=== PATIENT | female | born 1925 | race Caucasian/White ===

== ENCOUNTER 2016-07-27 14:56 | Observation (INO) | payer MEDICARE, BC ==
[2016-07-27] VITALS (9 sets, daily range): BP systolic 121–151; BP diastolic 55–75; PULSE 43–59; RESP 18–20; TEMP 97.8–98; O2SAT 96–98
[~2016-07-27] VITALS: Ht 149.9 cm; Wt 60.0 kg
[~2016-07-27 14:56] MED LIST: AMLO5TAB2 PO; ASPI1TAB69 PO; CARV6.252 PO; DORZ2SOL RIGHT EYE; FURO1TAB60 PO; GLIM2TAB PO; HYDR-3533 PO; ISOS20TA PO; JUSTSOL EACH EYE; K-TA10TA PO; LYRI50CA PO; NITR1SUB3 SL; NOVO7030P2 SQ; PANT40TA3 PO; PLAV75TA29 PO; PRED1SUS LEFT EYE; ROPI1TAB72 PO; ZETI10TA5 PO
[2016-07-27] MEDS ORDERED: SODIUM CHLORIDE 0.9% FLUSH 10 ML FLUSH IVF PRN (15:30)
[2016-07-27] MEDS ORDERED: ASPIRIN 81 MG CHEW TAB PO ONE ×2 (15:30→18:15)
[2016-07-27] MEDS ORDERED: NITROGLYCERIN 2% OINT 1 GM PACKET TOP ONE (15:30)
[2016-07-27] MEDS ORDERED: SODIUM CHLORID 0.9% 500 ML INJ 500 ML IV ONE (15:30)
--- NOTE | 2016-07-27 15:37 | PD ---
HPI Chief Complaint: chest pain Time Seen by Provider: 15:10 Travel History International Travel<30 days: No Contact w/Intl Traveler<30days: No History of Present Illness HPI Patient is an 89-year-old female with history of coronary artery disease, coronary artery bypass graft surgery, hypertension, lipidemia, atrial fibrillation, ckd, DM, arthritis who presents to emergency room with complaints of chest pain. Patient reports that she began having chest pain while at rest last night, reports that she felt a "dull ache" to her chest - reports that she felt tightness to her jaw as well as her neck. Patient reports that she did take one sublingual nitroglycerin which completely resolved her symptoms. Patient reports that she had another episode of chest pain today, which that she had a substernal pain to her chest with a tightness to her jaw and neck, reports that she took another sublingual nitroglycerin and had resolution of symptoms. Patient was concerned as she has been having daily symptoms of chest pain with history of coronary artery disease. Patient does see Dr. Morataya on the office, she did see her last month and was told that everything was okay. PFSH Past Medical History Arthritis: Yes Asthma: No Autoimmune Disease: No Blood Disorders: No Anxiety: Yes Depression: No Heart Rhythm Problems: Yes Cancer: Yes (BLADDER) Cardiac Catheterization: Yes Cardiovascular Problems: Yes High Cholesterol: Yes Chemotherapy: No Chest Pain: Yes Congestive Heart Failure: Yes COPD: No Cerebrovascular Accident: No Diabetes: Yes Diminished Hearing: Yes (HEARING AID RIGHT EAR) Endocrine: Yes Gastrointestinal Disorders: Yes (GERD) GERD: Yes Glaucoma: No Genitourinary: Yes (BLADDER CANCER/ HEMATURIA) Headaches: No Hepatitis: No Hiatal Hernia: Yes Hypertension: Yes Immune Disorder: No Implanted Vascular Access Dvce: Yes Kidney Stones: No Musculoskeletal: Yes (ARTHRITIS) Neurologic: Yes (NEUROPATHY FEET) Psychiatric: No Reproductive: No Respiratory: No Immunizations Current: Yes Migraines: No Myocardial Infarction: Yes Radiation Therapy: No Renal Failure: Yes Seizures: No Sickle Cell Disease: No Sleep Apnea: No Thyroid Disease: No Ulcer: No PNEUMOCCOCAL Vaccine (Year): 1 Menopausal: Yes : 2 Para: 2 Past Surgical History Abdominal Surgery: No AICD: No Appendectomy: No Arteriovenous Shunt: No Body Medical Devices: STERNAL WIRES Cardiac Surgery: Yes (CABG X2 SX'S 1981, 1989) Coronary Artery Bypass Graft: Yes (1981 OPEN HEART DOUBLE BYPASS, 1989 OPEN HEART DOUBLE BYPASS) Ear Surgery: Yes Endocrine Surgery: No Eye Surgery: Yes (SCOT CATARACT ; LEFT RETINA SX) Genitourinary Surgery: No Gynecologic Surgery: Yes (HYSTERECTOMY) Hysterectomy: Yes Insulin Pump: No Joint Replacement: No Neurologic Surgery: Yes Oral Surgery: No Pacemaker: No Thoracic Surgery: Yes Social History Alcohol Use: No Tobacco Use: No Substance Use: No Allergies-Medications (Allergen,Severity, Reaction): Coded Allergies: Penicillin (Verified Allergy, Severe, SEVERE ITCHING, 12/03/15) Reported Meds & Prescriptions Reported Meds & Active Scripts Active Requip (Ropinirole) 1 Mg Tab 1 Mg PO HS Plavix (Clopidogrel Bisulfate) 75 Mg Tab 75 Mg PO DAILY Reported Zetia (Ezetimibe) 10 Mg Tab 10 Mg PO HS Pred Forte Opth Drops (Prednisolone Acetate Opth Drops) 1% Susp 1 Drop LEFT EYE BID Pantoprazole (Pantoprazole Sodium) 40 Mg Tab 40 Mg PO DAILY Novolin 70-30 Inj (Insulin Human Isoph/Insulin Regular) 1,000 Unit/10 Ml Vial 16 Units SQ BID Nitroglycerin SL (Nitroglycerin) 0.4 Mg Subl 0.4 Mg SL DIRECTED PRN ONE TABLET UNDER THE TONGUE NEEDED FOR CHEST PAIN, MAY REPEAT EVERY FIVE MINUTES FOR A TOTAL OF 3 DOSES OR CALL 911 IF NO RELIEF Lyrica (Pregabalin) 50 Mg Cap 50 Mg PO BID Isosorbide Mononitrate 20 Mg Tab 20 Mg PO BID Lortab (Hydrocodone-Acetaminophen) 5-325 Mg Tab 1-2 Tab PO Q4-6H PRN Glimepiride 2 Mg Tab 2 Mg PO BID Lasix (Furosemide) 40 Mg Tab 40 Mg PO DAILY Dorzolamide Opth Drops (Dorzolamide HCl) 2% Soln 1 Drop RIGHT EYE BID Carvedilol 6.25 Mg Tab 6.25 Mg PO BID K-Tab (Potassium Chloride) 10 Meq Tab 10 Meq PO BID Aspirin 81 Mg Tabdr 81 Mg PO DAILY Just Tears Eye Drops (Artificial Tear Solution Opth Drops) 1 Chelsey Chelsey 1 Drop EACH EYE DAILY PRN Amlodipine (Amlodipine Besylate) 5 Mg Tab 5 Mg PO DAILY Review of Systems General / Constitutional: No: Fever Eyes: No: Visual changes HENT: No: Headaches Cardiovascular: Positive: Chest Pain or Discomfort Respiratory: No: Shortness of Breath Gastrointestinal: No: Abdominal Pain Genitourinary: No: Dysuria Musculoskeletal: No: Pain Skin: No Rash Neurologic: No: Weakness Psychiatric: No: Depression Endocrine: No: Polydipsia Hematologic/Lymphatic: No: Easy Bruising Physical Exam Narrative GENERAL: nad, nontoxic SKIN: Focused skin assessment warm/dry. HEAD: Atraumatic. Normocephalic. EYES: Pupils equal and round. No scleral icterus. No injection or drainage. ENT: No nasal bleeding or discharge. Mucous membranes pink and moist. NECK: Trachea midline. No JVD. CARDIOVASCULAR: Irregular rate and rhythm. No murmur appreciated. RESPIRATORY: No accessory muscle use. Clear to auscultation. Breath sounds equal bilaterally. GASTROINTESTINAL: Abdomen soft, non-tender, nondistended. Hepatic and splenic margins not palpable. MUSCULOSKELETAL: No obvious deformities. No clubbing. No cyanosis. No edema. NEUROLOGICAL: Awake and alert. No obvious cranial nerve deficits. Motor grossly within normal limits. Normal speech. PSYCHIATRIC: Appropriate mood and affect; insight and judgment normal. Data Data Last Documented VS Vital Signs Date Time Temp Pulse Resp B/P Pulse Ox O2 Delivery O2 Flow Rate FiO2 07/27/16 15:54 97.9 53 18 137/64 96 Room Air Orders Electrocardiogram (07/27/16 15:20) B-Type Natriuretic Peptide (07/27/16 15:20) Ckmb (Isoenzyme) Profile (07/27/16 15:20) Complete Blood Count With Diff (07/27/16 15:20) Comprehensive Metabolic Panel (07/27/16 15:20) Magnesium (Mg) (07/27/16 15:20) Prothrombin Time / Inr (Pt) (07/27/16 15:20) Act Partial Throm Time (Ptt) (07/27/16 15:20) Troponin I (07/27/16 15:20) Lipase (07/27/16 15:20) Chest, Single Ap (07/27/16 15:20) Ecg Monitoring (07/27/16 15:20) Iv Access Insert/Monitor (07/27/16 15:20) Oximetry (07/27/16 15:20) Aspirin Chew (Aspirin Chew) (07/27/16 15:30) Nitroglycerin 2% Oint (Nitroglycerin 2% (07/27/16 15:30) Sodium Chloride 0.9% Flush (Ns Flush) (07/27/16 15:30) Sodium Chlorid 0.9% 500 Ml Inj (Ns 500 M (07/27/16 15:30) Blood Culture (07/27/16 17:08) Admit Order (Ed Use Only) (07/27/16 17:25) Consult Cardiology (07/27/16 ) Labs Laboratory Tests Test 07/27/16 15:20 White Blood Count 6.7 TH/MM3 Red Blood Count 3.48 MIL/MM3 Hemoglobin 10.2 GM/DL Hematocrit 30.4 % Mean Corpuscular Volume 87.3 FL Mean Corpuscular Hemoglobin 29.2 PG Mean Corpuscular Hemoglobin 33.5 % Concent Red Cell Distribution Width 14.1 % Platelet Count 187 TH/MM3 Mean Platelet Volume 10.0 FL Neutrophils (%) (Auto) 72.7 % Lymphocytes (%) (Auto) 18.2 % Monocytes (%) (Auto) 8.7 % Eosinophils (%) (Auto) 0.2 % Basophils (%) (Auto) 0.2 % Neutrophils # (Auto) 4.9 TH/MM3 Lymphocytes # (Auto) 1.2 TH/MM3 Monocytes # (Auto) 0.6 TH/MM3 Eosinophils # (Auto) 0.0 TH/MM3 Basophils # (Auto) 0.0 TH/MM3 CBC Comment DIFF FINAL Differential Comment Prothrombin Time 11.1 SEC Prothromb Time International 1.0 RATIO Ratio Activated Partial 27.1 SEC Thromboplast Time Sodium Level 145 MEQ/L Potassium Level 3.5 MEQ/L Chloride Level 108 MEQ/L Carbon Dioxide Level 27.2 MEQ/L Anion Gap 10 MEQ/L Blood Urea Nitrogen 28 MG/DL Creatinine 1.27 MG/DL Estimat Glomerular Filtration 40 ML/MIN Rate Random Glucose 108 MG/DL Calcium Level 8.4 MG/DL Magnesium Level 2.2 MG/DL Total Bilirubin 0.6 MG/DL Aspartate Amino Transf 15 U/L (AST/SGOT) Alanine Aminotransferase 17 U/L (ALT/SGPT) Alkaline Phosphatase 83 U/L Total Creatine Kinase 68 U/L Troponin I LESS THAN 0.02 NG/ML Total Protein 5.9 GM/DL Albumin 3.1 GM/DL Lipase 56 U/L [facility] Medical Decision Making Medical Screen Exam Complete: Yes Emergency Medical Condition: Yes Interpretation(s) EKG at 1517: afib at 56bpm, qt/qtc: 435/426, no acute st or t wave changes Vital Signs Date Time Temp Pulse Resp B/P Pulse Ox O2 Delivery O2 Flow Rate FiO2 07/27/16 14:59 97.8 56 20 143/64 97 Room Air Differential Diagnosis ACS, arrhythmia, electrolyte abnormality Narrative Course Patient is a 89 year old female who presents to ER with c/o of chest pain. Reports that she has CAD, HTN, DM, hyperlipidemia, A. fib, reports that she sees Dr. Morataya in the office. Patient reports that she has been having multiple episodes of chest pain, a "dull ache" to her chest relieved with SL nitro. Patient reports that she had chest pain prior to arrival to ER, reports that she is chest pain free at this time. Patient was placed on a monitoring manager upon arrival to emergency room. Patient currently chest pain-free. Labs as well as cardiac enzymes ordered. Plan to continue to monitor patient. Will give ASA and apply nitro paste. Laboratory Tests Test 07/27/16 15:20 White Blood Count 6.7 TH/MM3 (4.0-11.0) Red Blood Count 3.48 MIL/MM3 (4.00-5.30) Hemoglobin 10.2 GM/DL (11.6-15.3) Hematocrit 30.4 % (35.0-46.0) Mean Corpuscular Volume 87.3 FL (80.0-100.0) Mean Corpuscular Hemoglobin 29.2 PG (27.0-34.0) Mean Corpuscular Hemoglobin 33.5 % Concent (32.0-36.0) Red Cell Distribution Width 14.1 % (11.6-17.2) Platelet Count 187 TH/MM3 (150-450) Mean Platelet Volume 10.0 FL (7.0-11.0) Neutrophils (%) (Auto) 72.7 % (16.0-70.0) Lymphocytes (%) (Auto) 18.2 % (9.0-44.0) Monocytes (%) (Auto) 8.7 % (0.0-8.0) Eosinophils (%) (Auto) 0.2 % (0.0-4.0) Basophils (%) (Auto) 0.2 % (0.0-2.0) Neutrophils # (Auto) 4.9 TH/MM3 (1.8-7.7) Lymphocytes # (Auto) 1.2 TH/MM3 (1.0-4.8) Monocytes # (Auto) 0.6 TH/MM3 (0-0.9) Eosinophils # (Auto) 0.0 TH/MM3 (0-0.4) Basophils # (Auto) 0.0 TH/MM3 (0-0.2) CBC Comment DIFF FINAL Differential Comment Prothrombin Time 11.1 SEC (9.8-11.6) Prothromb Time International 1.0 RATIO Ratio Activated Partial 27.1 SEC Thromboplast Time (24.3-30.1) Sodium Level 145 MEQ/L (136-145) Potassium Level 3.5 MEQ/L (3.5-5.1) Chloride Level 108 MEQ/L (98-107) Carbon Dioxide Level 27.2 MEQ/L (21.0-32.0) Anion Gap 10 MEQ/L (5-15) Blood Urea Nitrogen 28 MG/DL (7-18) Creatinine 1.27 MG/DL (0.50-1.00) Estimat Glomerular Filtration 40 ML/MIN (>89) Rate Random Glucose 108 MG/DL (74-106) Calcium Level 8.4 MG/DL (8.5-10.1) Magnesium Level 2.2 MG/DL (1.5-2.5) Total Bilirubin 0.6 MG/DL (0.2-1.0) Aspartate Amino Transf 15 U/L (15-37) (AST/SGOT) Alanine Aminotransferase 17 U/L (10-53) (ALT/SGPT) Alkaline Phosphatase 83 U/L (45-117) Total Creatine Kinase 68 U/L (26-192) Troponin I LESS THAN 0.02 NG/ML (0.02-0.05) Total Protein 5.9 GM/DL (6.4-8.2) Albumin 3.1 GM/DL (3.4-5.0) Lipase 56 U/L (73-393) Last Impressions Chest X-Ray 07/27/16 1520 Signed Impressions: Service Date/Time: Wednesday, July 27, 2016 15:32 - CONCLUSION: Non-consolidative patchy infiltrates in the left lower lung. Silvestre Johnston MD X-ray shows patchy infiltrates in the left lower lung, patient is to having productive cough for the past few days. denies any fevers or chills. blood cultures ordered, antibiotics ordered. [facility] Physician Communication Physician Communication case reviewed with dr baez, accepts pt to service, request consult to dr. stovall admit to dr mayo Diagnosis Primary Impression: Chest pain Qualified Code: R07.9 - Chest pain, unspecified type Additional Impression: Pneumonia Qualified Code: J18.9 - Pneumonia of left lung due to infectious organism, unspecified part of lung Admitting Information Admitting Physician Requests: Observation Stacie Sullivan DO Jul 27, 2016 15:37
[2016-07-27 15:46] LABS: AUTOMATED NEUTROPHIL # 4.9 TH/MM3 (1.8-7.7); BASOPHIL % 0.2 % (0.0-2.0); EOSINOPHIL % 0.2 % (0.0-4.0); HEMATOCRIT 30.4 % (35.0-46.0); HEMO FLAGS DIFF FINAL; LYMPH % 18.2 % (9.0-44.0); LYMPHOCYTE # 1.2 TH/MM3 (1.0-4.8); MEAN CELL VOLUME 87.3 FL (80.0-100.0); MEAN CORPUSCULAR HEMOGLOBIN 29.2 PG (27.0-34.0); MEAN CORPUSCULAR HGB CONC 33.5 % (32.0-36.0); MONO % 8.7 % (0.0-8.0); NEUT % 72.7 % (16.0-70.0); PLATELET COUNT 187 TH/MM3 (150-450); RED BLOOD COUNT 3.48 MIL/MM3 (4.00-5.30); RED CELL DISTRIBUTION WIDTH 14.1 % (11.6-17.2); WHITE BLOOD COUNT 6.7 TH/MM3 (4.0-11.0)
[2016-07-27 15:57] LABS: APTT (PATIENT) 27.1 SEC (24.3-30.1); PROTHROMBIN TIME - PATIENT 11.1 SEC (9.8-11.6)
[2016-07-27 16:15] LABS: ANION GAP 10 MEQ/L (5-15); AST (GOT) 15 U/L (15-37); BICARBONATE 27.2 MEQ/L (21.0-32.0); BLOOD UREA NITROGEN 28 MG/DL (7-18); CHLORIDE 108 MEQ/L (98-107); GLOMERULAR FILTRATION RATE 40 ML/MIN (>89); MAGNESIUM 2.2 MG/DL (1.5-2.5); POTASSIUM 3.5 MEQ/L (3.5-5.1); SODIUM (NA) 145 MEQ/L (136-145)
--- NOTE | 2016-07-27 16:16 | RADRPT ---
EXAM DATE/TIME: 07/27/2016 15:32 [facility] COMPARISON: CHEST SINGLE AP, March 27, 2016, 10:21. INDICATIONS : Shortness of breath. MEDICAL HISTORY : Hypercholesterolemia. Myocardial infarction. Congestive heart failure. SURGICAL HISTORY : Hysterectomy. CABG. 1981 1989 heart surgery per pt ENCOUNTER: Initial ACUITY: 2 days PAIN SCORE: 2/10 LOCATION: Bilateral upper chest FINDINGS: A single view of the chest demonstrates the right lung to be clear. There is some patchy areas of in filtrate in the retrocardiac left lower lung.. The heart is enlarged, but stable. Evidence of prior median sternotomy. Stable mild elevation left hemidiaphragm. Osseous structures are intact. CONCLUSION: Non-consolidative patchy infiltrates in the left lower lung. Silvestre Johnston MD on July 27, 2016 at 16:13 Board Certified Radiologist. This report was verified electronically.
[2016-07-27 16:20] LABS: ALKALINE PHOSPHATASE 83 U/L (45-117); ALT (GPT) 17 U/L (10-53); TOTAL BILIRUBIN ADULT 0.6 MG/DL (0.2-1.0)
[2016-07-27 16:24] LABS: CREATINE KINASE 68 U/L (26-192)
[2016-07-27] MEDS ORDERED: ACETAMINOPHEN 500 MG CPLT PO PRN (18:15)
[2016-07-27] MEDS ORDERED: SODIUM CHLORIDE 0.9% FLUSH 10 ML FLUSH IV FLUSH PRN (18:15)
[2016-07-27] MEDS ORDERED: NITROGLYCERIN 0.4 MG SL 25 TABS/BTL SL PRN (18:15)
[2016-07-27] MEDS ORDERED: ONDANSETRON HCL 4 MG/2 ML VIAL IV PRN (18:15)
[2016-07-27] MEDS: NITROGLYCERIN 2% OINT 1 GM PACKET TOP SCH (18:15)
[2016-07-27] MEDS: AZITHROMYCIN INJ 500 MG in SODIUM CHLOR 0.9% 250 ML INJ 250 ML IV SCH (18:43)
[2016-07-27 18:57] LABS: CREATINE KINASE 59 U/L (26-192)
--- NOTE | 2016-07-27 19:27 | MH ---
cc: IVA MARSHALL MD DATE OF ADMISSION: 07/27/2016 DATE OF : 1925 No travel in the last 30 days. CHIEF COMPLAINT Chest pain and cough. HISTORY OF PRESENT ILLNESS This is a pleasant 89-year-old white female who was in her usual state of health up until the past few days. The patient noted a feeling of tiredness and decreased stamina. She also noted some shortness of breath and was coughing up roldan phlegm. She states that she tried to rest for a few days but today she noted midsternal chest pain that she describes as a dull ache. She also noted some radiation into her jaw that she describes as a tight sensation. She took nitroglycerin x1 which resolved her symptoms but then the chest pain came back again. She took nitroglycerin again x1 which resolved the symptoms but decided that she needed to come in and be evaluated since she has a known history of coronary artery disease. She sees Dr. Delaney Morataya of Cardiology. The patient denies any recent fever, denies any headache, no nausea, no vomiting, no diarrhea, no constipation. She has not lost or gained any weight recently and she does note some seasonal allergies at times. The patient also states that she has been on Eliquis but was changed to a different type of blood thinner, Requip, and she notes increased bruising especially on her extremities when she bumps something. The patient is also noted to have a red swollen left eye with mild periorbital edema. She states that she uses prednisone drops twice a day in that eye. PAST MEDICAL HISTORY 1. Arthritis. 2. Anxiety. 3. Bladder cancer. 4. Congestive heart failure. 5. Diabetes. 6. Seasonal allergies. 7. Hyperlipidemia. 8. Previous chest pain. 9. Hard of hearing. 10. Gastroesophageal reflux disease. 11. Hiatal hernia. 12. Hypertension. 13. Osteoarthritis. 14. Diabetic neuropathy. 15. Renal failure. PAST SURGICAL HISTORY 1. Sternal wires. 2. CABG x2 once in 84 and once in . 3. Bilateral cataract surgery. 4. Left retina symptoms. 5. Hysterectomy. ALLERGIES PENICILLIN. MEDICATIONS ACTIVE 1. Requip. 2. Plavix. 3. Zetia. 4. Prednisone ophthalmic drops. 5. Pantoprazole. 6. Novolin 70/30. 7. Nitroglycerin. 8. Lyrica. 9. Isosorbide. 10. Lortab. 11. Glimepiride. 12. Lasix. 13. Dorzolamide ophthalmic drops. 14. Carvedilol. 15. K-Tabs. 16. Aspirin. 17. Tears. 18. Amlodipine. SOCIAL HISTORY The patient is currently and lives with her son. There is no alcohol, tobacco or illicit drug use. REVIEW OF SYSTEMS Noted in the HPI which include her chest pain, some productive roldan sputum, shortness of breath, seasonal allergies, cough. PHYSICAL EXAMINATION VITAL SIGNS: Temperature 97.9, pulse 53-56, respirations 20, blood pressure initially 143/64 in the ER and now 137/64, O2 sat 96 on room air. GENERAL: Elderly white female, looks to be her stated age, resting in the bed, currently chest pain-free. SKIN: Pale, warm and dry. HEAD, EYES, EARS, NOSE AND THROAT: Atraumatic, normocephalic. No scleral icterus. PERRLA. Noted mild redness and periorbital edema in the left eye with some erythema. No nasal discharge. NECK: Supple. Trachea is midline. CARDIOVASCULAR: S1, S2. A soft systolic murmur possible in the left sternal border. She has a trace of edema in her left leg and none in her right leg. RESPIRATORY: Essentially clear anteriorly with no wheezes or rhonchi. She does have decreased breath sounds in the left mid and base. ABDOMEN: Soft, tender, nondistended. MUSCULOSKELETAL: Moves her extremities with purpose. No obvious deformities. NEUROLOGIC: She is hard of hearing but awake, alert and a fair historian. Speech is fairly clear. PSYCHIATRIC: Appropriate mood and affect. DIAGNOSTIC DATA WBC 6.7, RBC 3.48, hemoglobin 10.2, hematocrit 30.4, abnormal neutrophil percentage 72.7 and monocytes are 8.7. Chemistry: Sodium 145, potassium 3.5, chloride 108, carbon dioxide 27.2, anion gap 10, BUN 28, creatinine 1.27, GFR 40, random glucose 108, calcium 8.4, troponin less than 0.02, total protein is 5.9, albumin 3.1, lipase 56. PT/INR is 1. IMAGING STUDIES Chest x-ray with non-consolidative patchy infiltrates in the left lower lung. ASSESSMENT 1. Chest pain. Rule out [place]. Rule out cardiac event. 2. CAD/CAD. Possible pneumonia left lower lobe due to infectious organism. 3. Acute kidney injury with possible mild dehydration. 4. Anemia. 5. History of TIAs and generalized weakness. 6. Diabetes mellitus type 2. Mild hyperglycemia noted. 7. History of paroxysmal atrial fibrillation. 8. Hypertension. 9. Gastroesophageal reflux disease. PLAN 1. Admit initially to observation. 2. Vital signs will be q.4. 3. We will reconcile her medications. 4. We will start her on PPI prophylaxis with Pepcid. 5. Nitroglycerin ointment which she states is helping her chest pain. She also can use p.r.n. nitroglycerin. 6. Aspirin. 7. Cardiac monitoring. 8. Heparin for DVT prophylaxis along with SCDs bilateral. 9. We will go ahead and start her on Rocephin IV and azithromycin. 10. To rule out a pneumonia event we will get a BNP. 11. Consult Cardiology for her expert opinion. 12. Activity will be bedrest with bedside commode. 13. Blood cultures which will be pending. The patient to my knowledge is FULL CODE/FULL AGGRESSIVE CARE and we will monitor. Dictated by: KAILEY Dotson MD MOISES Lewis/MARTHA /6:22 PM /6:34 PM
[2016-07-27] MEDS: cefTRIAXone INJ 2,000 MG in SODIUM CHLORIDE 0.9% INJ 100 ML IV SCH (20:05)
--- NOTE | 2016-07-27 20:31 | HP.UPD ---
H&P Update Note This is a very pleasant 61 year-old female who sees health professor Dr. Morataya. She hasn't had coronary bypass surgery on 2 separate occasions in the 80s and 90s. She was SEEN and examined by the undersigned on 07/27/16 in the emergency department at [facility] in room C 25. She came in with chest discomfort and with productive cough and shortness of breath. She also has a runny nose. No infiltrate was found on x-ray. She was put on antibiotics. She is been admitted on observation. Serial CKs and troponins ordered. Her health professor is consulted. Further recommendations will depend on her hospital course. Davy Fink MD Jul 27, 2016 20:30
[2016-07-27] MEDS ORDERED: FAMOTIDINE 20 MG TAB PO SCH (21:00)
[2016-07-27 21:28] LABS: MAGNESIUM 2.3 MG/DL (1.5-2.5)
[2016-07-27] MEDS: HEPARIN SODIUM - SQ 10,000 UNITS/ML VIAL SQ SCH (22:12)
[2016-07-28] VITALS (7 sets, daily range): BP systolic 125–155; BP diastolic 59–68; PULSE 53–64; RESP 18–20; TEMP 96.5–98.4; O2SAT 95–98
[2016-07-28] MEDS: NITROGLYCERIN 2% OINT 1 GM PACKET TOP SCH ×2 (00:15→06:03)
[2016-07-28] MEDS ORDERED: ARTIFICIAL TEARS OPTH SOLN 15 ML BTL EACH EYE PRN (02:00)
--- NOTE | 2016-07-28 07:25 | HHI.PR ---
Subjective Subjective Remarks upset, anxious cp with deep breathing, midsternum no sob left eye very painful overnight afebrile Review of Systems Constitutional Constitutional Remarks 12 point ROS completed, negative except as noted above Vitals/Results Intake & Output 07/27/16 07/27/16 07/28/16 15:00 23:00 07:00 Intake Total 120 ml Balance 120 ml Intake Oral 120 ml Vital Signs Vital Signs Date Time Temp Pulse Resp B/P Pulse Ox O2 Delivery O2 Flow Rate FiO2 07/28/16 03:36 98.4 56 20 125/59 95 07/28/16 02:50 53 07/27/16 23:25 98.0 43 18 149/65 98 07/27/16 21:27 98.0 52 18 123/55 98 07/27/16 20:40 96 21 07/27/16 18:00 51 18 121/75 98 Room Air 07/27/16 17:00 59 18 151/60 96 Room Air 07/27/16 15:54 97.9 53 18 137/64 96 Room Air 07/27/16 15:54 53 20 96 Room Air 07/27/16 15:51 97.9 53 20 137/64 96 07/27/16 15:28 96 Room Air 07/27/16 14:59 97.8 56 20 143/64 97 Room Air CBC/BMP: 07/27/16 1520 07/27/16 1520 Lab Results Laboratory Tests Test 07/27/16 07/27/16 07/27/16 15:20 18:00 21:00 White Blood Count 6.7 TH/MM3 Red Blood Count 3.48 MIL/MM3 Hemoglobin 10.2 GM/DL Hematocrit 30.4 % Mean Corpuscular Volume 87.3 FL Mean Corpuscular Hemoglobin 29.2 PG Mean Corpuscular Hemoglobin 33.5 % Concent Red Cell Distribution Width 14.1 % Platelet Count 187 TH/MM3 Mean Platelet Volume 10.0 FL Neutrophils (%) (Auto) 72.7 % Lymphocytes (%) (Auto) 18.2 % Monocytes (%) (Auto) 8.7 % Eosinophils (%) (Auto) 0.2 % Basophils (%) (Auto) 0.2 % Neutrophils # (Auto) 4.9 TH/MM3 Lymphocytes # (Auto) 1.2 TH/MM3 Monocytes # (Auto) 0.6 TH/MM3 Eosinophils # (Auto) 0.0 TH/MM3 Basophils # (Auto) 0.0 TH/MM3 CBC Comment DIFF FINAL Differential Comment Prothrombin Time 11.1 SEC Prothromb Time International 1.0 RATIO Ratio Activated Partial 27.1 SEC Thromboplast Time Sodium Level 145 MEQ/L Potassium Level 3.5 MEQ/L Chloride Level 108 MEQ/L Carbon Dioxide Level 27.2 MEQ/L Anion Gap 10 MEQ/L Blood Urea Nitrogen 28 MG/DL Creatinine 1.27 MG/DL Estimat Glomerular Filtration 40 ML/MIN Rate Random Glucose 108 MG/DL Calcium Level 8.4 MG/DL Magnesium Level 2.2 MG/DL 2.3 MG/DL Total Bilirubin 0.6 MG/DL Aspartate Amino Transf 15 U/L (AST/SGOT) Alanine Aminotransferase 17 U/L (ALT/SGPT) Alkaline Phosphatase 83 U/L Total Creatine Kinase 68 U/L 59 U/L 51 U/L Troponin I LESS THAN 0.02 LESS THAN 0.02 0.02 NG/ML NG/ML NG/ML B-Type Natriuretic Peptide 309 PG/ML Total Protein 5.9 GM/DL Albumin 3.1 GM/DL Lipase 56 U/L Microbiology Microbiology 07/27/16 Aerobic Blood Culture, Received Pending 07/27/16 Anaerobic Blood Culture, Received Pending 07/27/16 Aerobic Blood Culture, Received Pending 07/27/16 Anaerobic Blood Culture, Received Pending Physical Exam General General Appearance: Well Developed, Well Nourished, No Acute Distress, Comfortable Eyes Eye Exam: Pupils Equal, Pupils Reactive Ears & Nose Ears & Nose Exam: Nasal Mucosa [place] Throat Throat Exam: Oral Mucosa [place] & Moist Neck Neck Exam: Neck Supple, Trachea Midline Pulmonary Resp Exam: No Distress, Decreased Bases Cardiology CV Exam: Regular, Normal Sinus Rhythm, Good Perfusion Gastrointestinal/Abdomen GI Exam: Soft, Non-Tender, Bowel Sounds Present, Non-Distended Musculoskeletal MS Exam: Joints Intact Integumentary Skin Exam: Clear, Warm, Dry Extremeties Extremities Exam: No Edema, Pedal Pulses Palpable Neurologic Neuro Exam: Alert, Awake, Oriented, Speech Clear, Moving All Extremities, No Focal Deficits Psychiatric Psych Exam: Appropriate Responses VTE Prophylaxis VTE Prophylaxis Device: SCDs VTE Prophylaxis Meds: Heparin Assessment/Plan Problem List: (1) Chest pain (2) Pneumonia (3) Hypertension (4) Hyperlipidemia (5) GERD (gastroesophageal reflux disease) (6) DM (diabetes mellitus) (7) CAD (coronary artery disease) (8) Hx of CABG (9) Restless leg syndrome (10) Paroxysmal a-fib (11) Dehydration, mild Assessment/Plan chest pain, neg. trop continue Imdur, resume Plavix, statins resume Coreg, with hold parameters, HR noted [place] evaluated per Dr. Morataya, input appreciated, note pending continue abx cultures negative so far continue home meds c/o left eye pain, resume eye drops from home Accucheck with ISS Renal insuf BMP pending received IVF Heparin for DVT prophylaxis Resume home meds repeat labs in am labs today pending poss. dc later today or tomorrow D/W RN D/W Dr. Fink D/W pt. This patient was seen by myself and Dr. Fink, this note is written on his behalf. Problem Qualifiers (1) Chest pain: Qualified Code: R07.9 - Chest pain, unspecified type (2) Pneumonia: Qualified Code: J18.9 - Pneumonia of left lung due to infectious organism, unspecified part of lung (3) Hypertension: Qualified Code: I10 - Essential hypertension (4) Hyperlipidemia: Qualified Code: E78.5 - Hyperlipidemia, unspecified hyperlipidemia type (5) GERD (gastroesophageal reflux disease): Qualified Code: K21.9 - Gastroesophageal reflux disease, esophagitis presence not specified (6) DM (diabetes mellitus): Qualified Code: E11.59 - Type 2 diabetes mellitus with other circulatory complication, 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
[2016-07-28] MEDS ORDERED: DEXTROSE 50% IN WATER 50 ML VIAL(D50) IV PUSH PRN (07:30)
[2016-07-28] MEDS ORDERED: GLUCAGON 1 MG/ML VIAL OTHER PRN (07:30)
--- NOTE | 2016-07-28 08:39 | MB ---
cc: ELLIE SADLER MD DATE OF CONSULTATION 07/28/2016 REASON FOR CONSULTATION Chest pain. HISTORY OF PRESENT ILLNESS Ms. Wilkes is an 89-year-old female who does have a history of atrial fibrillation, CABG with re-do CABG. The patient reports that she has been having coughing for the several days for a grayish sputum. On Monday evening she had a severe episode of chest pain. She did subsequently seek attention in the emergency room. She is currently pain-free. PAST MEDICAL HISTORY 1. Atrial fibrillation. 2. Arthritis. 3. Anxiety. 4. Bladder cancer. 5. CHF. 6. 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 7. Hypertension. 8. Hyperlipidemia. 9. GERD. 10. Arthritis. 11. Renal insufficiency. 12. Mild aortic stenosis. 13. Mild to moderate mitral regurgitation. ALLERGIES PENICILLIN. OUTPATIENT MEDICATIONS 1. Requip. 2. Plavix. 3. Zetia. 4. Prednisone. 5. Pantoprazole. 6. Novolin. 7. Nitroglycerin. 8. Lyrica. 9. Isosorbide. 10. Lortab. 11. Glimepiride. 12. Lasix. 13. Dorzolamide. 14. Carvedilol. 15. K-Tabs. 16. Aspirin. 17. Amlodipine. SOCIAL HISTORY The patient does live with her son. REVIEW OF SYSTEMS Except as mentioned in the HPI, all 12 systems are negative. FAMILY HISTORY Noncontributory. PHYSICAL EXAMINATION VITAL SIGNS: 98.4, 56, 20, 125/59. IN GENERAL: She is a well-appearing, elderly female who is in no apparent distress. NECK: Free from JVD. LUNGS: Clear to auscultation. CARDIOVASCULAR EXAMINATION: She has a normal S1 and S2. There is a 2/6 systolic murmur. No rubs or gallops appreciated. ABDOMEN: Soft. EXTREMITIES: Free from edema. ECHOCARDIOGRAM From 03/28/2016 shows normal LV function. The EF is 55%. There is mild aortic stenosis with mild to moderate regurgitation and mild to moderate mitral regurgitation. CHEST X-RAY The chest x-ray shows non-consolidative patchy infiltrates in the left lower lung. LAB VALUES Serial enzymes of less than 0.02/less than 0.02/less than 0.02. Her BNP is 309 Creatinine is 1.27. ASSESSMENT AND PLAN Chest pain - The patient certainly does have history of CAD and may well have had some cardiac/anginal chest pain. She has ruled out with serial enzymes. Her EKG does not show any ischemic changes. In light of this, her CABG and redo history, advanced age and pneumonia, I would not pursue any further cardiac workup at this time. I would continue her on her outpatient medications with p.r.n. nitroglycerin. After she is over her antibiotic course, I can follow with her as an outpatient for reevaluation and consideration of nuclear stress testing though she is admittedly a very poor revascularization candidate. Pneumonia - The patient does have patchy infiltrates and a productive cough. Her white count is not elevated but she is on antibiotics which I agree with. This is obviously being managed by the primary team. Atrial fibrillation - The patient is in AF. She has not been on anticoagulation secondary to her anemia and hematuria with Eliquis. Disposition - It is reasonable for her to be discharged from a cardiac perspective. Ellie Sadler M.D. KEVIN/YOUSUF /7:08 AM /8:20 AM
[2016-07-28] MEDS: prednisoLONE ACETATE 1% OPHT SUSP 5 ML BTL LEFT EYE SCH ×2 (09:00→21:54)
[2016-07-28] MEDS: DORZOLAMIDE 2% OPTH SOLN 200 DROP/10 ML BTLO RIGHT EYE SCH ×2 (09:00→21:56)
[2016-07-28] MEDS: CARVEDILOL 6.25 MG TAB PO SCH ×2 (09:57→21:55)
[2016-07-28] MEDS: PANTOPRAZOLE SOD 40 MG DELAYED RELEASE TAB PO SCH (09:58)
[2016-07-28] MEDS: FUROSEMIDE 40 MG TAB PO SCH (09:58)
[2016-07-28] MEDS: amLODIPine BESYLATE 5 MG TAB PO SCH (09:58)
[2016-07-28] MEDS: POTASSIUM CHLORIDE 10 MEQ CONTROLLED RELEASE TAB PO SCH ×2 (09:58→21:56)
[2016-07-28] MEDS: GLIMEPIRIDE 2 MG TAB PO SCH ×2 (09:58→21:55)
[2016-07-28] MEDS: HEPARIN SODIUM - SQ 10,000 UNITS/ML VIAL SQ SCH ×2 (09:59→21:56)
[2016-07-28] MEDS: ASPIRIN EC 81 MG TABEC PO SCH (09:59)
[2016-07-28] MEDS: CLOPIDOGREL 75 MG TAB PO SCH (09:59)
[2016-07-28 12:24] LABS: BICARBONATE 27.7 MEQ/L (21.0-32.0); POTASSIUM 3.4 MEQ/L (3.5-5.1)
--- NOTE | 2016-07-28 12:27 | EKG ---
Date Performed: 07/27/2016 Time Performed: 15:17:37 PTAGE: 89 years EKG: ATRIAL FIBRILLATION WITH SLOW VENTRICULAR RESPONSE ABNORMAL RHYTHM ECG Compared to prior tr acing no significant change PREVIOUS TRACING 03/28/2016 07.57.05 DOCTOR: Garcia Solomon Interpretating Date/Time 07/28/2016 12:26:18
[2016-07-28] MEDS: INSULIN ASPART SUPPLEMENTAL SCALE SQ SCH ×3 (13:05→22:10)
[2016-07-28] MEDS: AZITHROMYCIN INJ 500 MG in SODIUM CHLOR 0.9% 250 ML INJ 250 ML IV SCH (17:13)
[2016-07-28] MEDS ORDERED: EZETIMIBE 10 MG TAB PO SCH (21:00)
[2016-07-28] MEDS: cefTRIAXone INJ 2,000 MG in SODIUM CHLORIDE 0.9% INJ 100 ML IV SCH (21:54)
[2016-07-29] VITALS: BP 137/81; PULSE 53; RESP 18; TEMP 96.5; O2SAT 93
[2016-07-29 04:42] VITALS: BP 144/62; PULSE 68; RESP 20; TEMP 96; O2SAT 96
[2016-07-29] MEDS: INSULIN ASPART SUPPLEMENTAL SCALE SQ SCH ×2 (05:15→11:48)
[2016-07-29 06:01] LABS: HEMATOCRIT 28.3 % (35.0-46.0); MEAN CELL VOLUME 86.7 FL (80.0-100.0); MEAN CORPUSCULAR HEMOGLOBIN 29.6 PG (27.0-34.0); MEAN CORPUSCULAR HGB CONC 34.2 % (32.0-36.0); PLATELET COUNT 174 TH/MM3 (150-450); RED BLOOD COUNT 3.26 MIL/MM3 (4.00-5.30); RED CELL DISTRIBUTION WIDTH 14.3 % (11.6-17.2); REVIEW FLAG FINAL; WHITE BLOOD COUNT 4.8 TH/MM3 (4.0-11.0)
[2016-07-29 06:32] LABS: BICARBONATE 29.4 MEQ/L (21.0-32.0); POTASSIUM 3.4 MEQ/L (3.5-5.1)
[2016-07-29] MEDS ORDERED: ISOSORBIDE MONONITRATE 60 MG TAB PO SCH (07:00)
[2016-07-29 07:10] VITALS: BP 138/59; PULSE 69; RESP 18; TEMP 98.4; O2SAT 98
--- NOTE | 2016-07-29 07:26 | HHI.FF ---
Face to Face Verification Diagnosis: (1) Chest pain (2) Pneumonia Physical Therapy Order: Evaluate and Treat Home Health Nursing Order: Medical education Nursing assessment with vital signs I have seen patient Elena Wilkes on 07/29/16. My clinical findings support the need for the requested home health care services because: Deconditioned w/ increased weakness Limited ability to care for self Need for psychosocial assistance I certify that my clinical findings support that this patient is homebound because: Unsafe to leave home unassisted Need for psychosocial assistance Charlotte Samayoa [facility] Jul 29, 2016 07:26
[2016-07-29] MEDS ORDERED: ZITH500T PO (07:30)
--- NOTE | 2016-07-29 07:31 | HHI.DCPOC ---
Discharge Care Plan Diagnosis: (1) Pneumonia (2) Chest pain Your Health Problems Are: Chest Pain Cough Shortness of Breath Goals to Promote Your Health * To prevent worsening of your condition and complications * To maintain your health at the optimal level Directions to Meet Your Goals Take your medications as prescribed Follow your dietary instruction Follow activity as directed Keep your appointments as scheduled Take your immunizations and boosters as scheduled If your symptoms worsen call your PCP, if no PCP go to Urgent Care Center or Emergency Room Smoking is Dangerous to Your Health. Avoid second hand smoke Call the 24-hour hour crisis hotline for domestic abuse at [place] Samay[place]. [facility] Jul 29, 2016 07:30
--- NOTE | 2016-07-29 07:52 | HHI.PR ---
Subjective Subjective Remarks occ disoriented at this time, oriented x 3 minimal cough, no sputum today had CP, received Ntg. Now relieved no sob no fever anxious to go home Review of Systems Constitutional Constitutional Remarks 12 point ROS completed, unreliable Vitals/Results Intake & Output 07/28/16 07/28/16 07/29/16 15:00 23:00 07:00 Intake Total 240 ml Balance 240 ml Intake Oral 240 ml # Voids 2 1 2 # Bowel Movements 1 0 Vital Signs Vital Signs Date Time Temp Pulse Resp B/P Pulse Ox O2 Delivery O2 Flow Rate FiO2 07/29/16 07:10 98.4 69 18 138/59 98 07/29/16 04:42 96.0 68 20 144/62 96 07/29/16 01:25 21 07/29/16 00:00 96.5 53 18 137/81 93 07/28/16 21:00 64 07/28/16 20:00 96.5 58 18 155/67 98 07/28/16 15:47 97.1 57 20 148/68 95 07/28/16 13:32 96.8 56 18 146/64 97 07/28/16 08:12 96.5 55 18 154/65 96 CBC/BMP: 07/29/16 0420 07/29/16 0420 Lab Results Laboratory Tests Test 07/28/16 07/29/16 11:25 04:20 Sodium Level 143 MEQ/L 145 MEQ/L Potassium Level 3.4 MEQ/L 3.4 MEQ/L Chloride Level 107 MEQ/L 109 MEQ/L Carbon Dioxide Level 27.7 MEQ/L 29.4 MEQ/L Anion Gap 8 MEQ/L 7 MEQ/L Blood Urea Nitrogen 25 MG/DL 29 MG/DL Creatinine 1.25 MG/DL 1.31 MG/DL Estimat Glomerular Filtration 40 ML/MIN 38 ML/MIN Rate Random Glucose 318 MG/DL 149 MG/DL Calcium Level 8.1 MG/DL 8.4 MG/DL White Blood Count 4.8 TH/MM3 Red Blood Count 3.26 MIL/MM3 Hemoglobin 9.7 GM/DL Hematocrit 28.3 % Mean Corpuscular Volume 86.7 FL Mean Corpuscular Hemoglobin 29.6 PG Mean Corpuscular Hemoglobin 34.2 % Concent Red Cell Distribution Width 14.3 % Platelet Count 174 TH/MM3 Mean Platelet Volume 10.8 FL Microbiology Microbiology 07/28/16 Influenza Types A,B Antigen (DARLIN) - Final, Complete NEGATIVE FOR FLU A AND B ANTIGEN.... Physical Exam General General Appearance: Well Developed, Well Nourished, No Acute Distress, Comfortable Eyes Eye Exam: Extraocular Movement Intact Ears & Nose Ears & Nose Exam: Nasal Mucosa [place] Throat Throat Exam: Oral Mucosa [place] & Moist Neck Neck Exam: Neck Supple, Trachea Midline Pulmonary Resp Exam: No Distress, Decreased Bases Cardiology CV Exam: Regular, Normal Sinus Rhythm, Good Perfusion Gastrointestinal/Abdomen GI Exam: Soft, Non-Tender, Bowel Sounds Present, Non-Distended Musculoskeletal MS Exam: Joints Intact Integumentary Skin Exam: Clear, Warm, Dry Extremeties Extremities Exam: No Edema, Pedal Pulses Palpable Neurologic Neuro Exam: Alert, Awake, Speech Clear, Moving All Extremities, No Focal Deficits Psychiatric Psych Exam: Appropriate Responses VTE Prophylaxis VTE Prophylaxis Device: SCDs VTE Prophylaxis Meds: Heparin Assessment/Plan Problem List: (1) Chest pain (2) Pneumonia (3) Hypertension (4) Hyperlipidemia (5) GERD (gastroesophageal reflux disease) (6) DM (diabetes mellitus) (7) CAD (coronary artery disease) (8) Hx of CABG (9) Restless leg syndrome (10) Paroxysmal a-fib (11) Dehydration, mild Assessment/Plan chest pain, neg. trop continue Imdur, resume Plavix, statins continue Coreg, with hold parameters, HR noted saskia evaluated per Dr. Morataya, input appreciated, medical management for now. Ntg PRN continue abx cultures negative so far continue home meds c/o left eye pain, continue eye drops from home Accucheck with ISS Renal insuf-poss. baseline. stable replace K Heparin for DVT prophylaxis Labs reviewed CM for dc planning, home today with [facility] PT eval-pt. to ambulate in hallway F/U with cardiology 2 weeks F/U PCP 1 week Diet-heart healthy Activity-as tolerated D/W RN D/W Dr. Fink D/W pt. This patient was seen by myself and Dr. Fink, this note is written on his behalf. 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
--- NOTE | 2016-07-29 07:53 | HHI.DS ---
Discharge Summary Admission Date Jul 27, 2016 at 17:27 Discharge Date: Jul 29, 2016 Admitting Diagnosis Chest pain, Pneumonia (1) Chest pain (2) Pneumonia (3) Dehydration, mild (4) CAD (coronary artery disease) (5) DM (diabetes mellitus) (6) GERD (gastroesophageal reflux disease) (7) HTN (hypertension) (8) Hyperlipidemia (9) Hypertension (10) Paroxysmal a-fib (11) Hx of CABG CBC/BMP: 07/29/16 0420 07/29/16 0420 Significant Findings Laboratory Tests Test 07/27/16 07/27/16 07/28/16 07/29/16 15:20 18:00 11:25 04:20 Red Blood Count 3.48 MIL/MM3 3.26 MIL/MM3 (4.00-5.30) (4.00-5.30) Hemoglobin 10.2 GM/DL 9.7 GM/DL (11.6-15.3) (11.6-15.3) Hematocrit 30.4 % 28.3 % (35.0-46.0) (35.0-46.0) Neutrophils (%) (Auto) 72.7 % (16.0-70.0) Monocytes (%) (Auto) 8.7 % (0.0-8.0) Chloride Level 108 MEQ/L 109 MEQ/L (98-107) (98-107) Blood Urea Nitrogen 28 MG/DL (7-18) 25 MG/DL (7-18) 29 MG/DL (7-18) Creatinine 1.27 MG/DL 1.25 MG/DL 1.31 MG/DL (0.50-1.00) (0.50-1.00) (0.50-1.00) Estimat Glomerular Filtration 40 ML/MIN (>89) 40 ML/MIN (>89) 38 ML/MIN (>89) Rate Random Glucose 108 MG/DL 318 MG/DL 149 MG/DL (74-106) (74-106) (74-106) Calcium Level 8.4 MG/DL 8.1 MG/DL 8.4 MG/DL (8.5-10.1) (8.5-10.1) (8.5-10.1) Troponin I LESS THAN 0.02 LESS THAN 0.02 NG/ML NG/ML (0.02-0.05) (0.02-0.05) B-Type Natriuretic Peptide 309 PG/ML (0-100) Total Protein 5.9 GM/DL (6.4-8.2) Albumin 3.1 GM/DL (3.4-5.0) Lipase 56 U/L (73-393) Potassium Level 3.4 MEQ/L 3.4 MEQ/L (3.5-5.1) (3.5-5.1) Hospital Course This is a pleasant 89-year-old white female who was in her usual state of health up until the past few days. The patient noted a feeling of tiredness and decreased stamina. She also noted some shortness of breath and was coughing up roldan phlegm. She stated that she tried to rest for a few days but then she noted midsternal chest pain that she described as a dull ache. She also noted some radiation into her jaw that she described as a tight sensation. She took nitroglycerin x1 which resolved her symptoms but then the chest pain came back again. She took nitroglycerin again x1 which resolved the symptoms but decided that she needed to come in and be evaluated since she has a known history of coronary artery disease. She sees Dr. Ellie Sadler of Cardiology. The patient denied any recent fever, denies any headache, no nausea, no vomiting, no diarrhea, no constipation. She has not lost or gained any weight recently and she does note some seasonal allergies at times. The patient also states that she has been on Eliquis but was changed to a different type of blood thinner, and she notes increased bruising especially on her extremities when she bumps something. The patient is also noted to have a red swollen left eye with mild periorbital edema. She states that she uses prednisone drops twice a day in that eye. Pt. was admitted. Cardiac enzymes done. Noted with renal insufficiency. CXR showed possible PNA. Pt was admitted for further evaluation for: (1) Chest pain (2) Pneumonia (3) Hypertension (4) Hyperlipidemia (5) GERD (gastroesophageal reflux disease) (6) DM (diabetes mellitus) (7) CAD (coronary artery disease) (8) Hx of CABG (9) Restless leg syndrome (10) Paroxysmal a-fib (11) Dehydration, mild During the course of the hospitalization, the following took place: Pt. admitted, serial cardiac enzymes done. Cardiology consulted. Evaluated per Dr. Sadler, input appreciated, medical management for now. Neg trop and EKG. Continued Imdur, resume Plavix, statins continued Coreg, with hold parameters, HR noted [place] Ntg PRN ordered For PNA, continued on abx. Cultures negative. Symptoms improved, no fever, minimal cough with sputum. continued home meds c/o left eye pain, continued eye drops from home Accucheck with ISS to manage DM Renal insuf-poss. baseline. stable Was given IVF replaced K Heparin for DVT prophylaxis ordered. CM for dc planning, home with [facility] Pt. stable for discharge. Requested that PT eval-pt. to ambulate in hallway F/U with cardiology 2 weeks F/U PCP 1 week Diet-heart healthy Activity-as tolerated Pt Condition on Discharge: Stable Discharge Disposition: Disch w/ Home Health Serv Discharge Instructions DIET: Follow Instructions for: Heart Healthy Diet Activities you can perform: Weight Bearing as Maura Follow up Referrals: Cardiology with ELLIE SADLER PCP Follow-up New Medications: Azithromycin (Zithromax) 500 Mg Tab 500 MG PO DAILY Infection #5 Ref 0 TAB Continued Medications: Amlodipine (Amlodipine) 5 Mg Tab 5 MG PO DAILY Blood Pressure Management #30 Ref 0 TAB Artificial Tear Solution Opth Drops (Just Tears Eye Drops) 1 Chelsey Chelsey 1 DROP EACH EYE DAILY PRN DRY EYE Aspirin (Aspirin) 81 Mg Tabdr 81 MG PO DAILY TAB Carvedilol (Carvedilol) 6.25 Mg Tab 6.25 MG PO BID #60 Ref 0 TAB Clopidogrel (Plavix) 75 Mg Tab 75 MG PO DAILY Stroke Prevention #30 Ref 1 TAB Dorzolamide Opth Drops (Dorzolamide Opth Drops) 2% Soln 1 DROP RIGHT EYE BID Glaucoma #1 Ref 0 BOTTLE Ezetimibe (Zetia) 10 Mg Tab 10 MG PO HS Cholesterol Management #30 Ref 0 TAB Furosemide (Lasix) 40 Mg Tab 40 MG PO DAILY EDEMA #30 Ref 0 TAB Glimepiride (Glimepiride) 2 Mg Tab 2 MG PO BID Blood Sugar Management #60 Ref 0 TAB Hydrocodone-Acetaminophen (Lortab) 5-325 Mg Tab 1-2 TAB PO Q4-6H PRN PAIN Ref 0 TAB Insulin Human Isophane-Regular 70-30 Inj (Novolin 70-30 Inj) 1,000 Unit/10 Ml Vial 16 UNITS SQ BID Blood Sugar Management Ref 0 ML Isosorbide Mononitrate (Isosorbide Mononitrate) 20 Mg Tab 20 MG PO BID Prevent Chest Pain #60 Ref 0 TAB Nitroglycerin SL (Nitroglycerin SL) 0.4 Mg Subl 0.4 MG SL DIRECTED ONE TABLET UNDER THE TONGUE NEEDED FOR CHEST PAIN, MAY REPEAT EVERY FIVE MINUTES FOR A TOTAL OF 3 DOSES OR CALL 911 IF NO RELIEF PRN CHEST PAIN #100 Ref 0 TAB.SL Pantoprazole (Pantoprazole) 40 Mg Tab 40 MG PO DAILY Reflux #30 Ref 0 TAB Potassium Chloride ER (K-Tab) 10 Meq Tab 10 MEQ PO BID Electrolyte Replacement #60 Ref 0 TAB Prednisolone Acetate Opth Drops (Pred Forte Opth Drops) 1% Susp 1 DROP LEFT EYE BID Inflammation #1 Ref 0 BOTTLE Pregabalin (Lyrica) 50 Mg Cap 50 MG PO BID NEUROPATHY #60 Ref 0 CAP Ropinirole (Requip) 1 Mg Tab 1 MG PO HS restless leg #30 Ref 1 TAB [place] SamayoaP Jul 29, 2016 07:53
[2016-07-29] MEDS ORDERED: POTASSIUM CHLORIDE 25 MEQ EFFERVESCENT TAB PO ONE (08:00)
[2016-07-29 08:44] VITALS: O2SAT 97
[2016-07-29] MEDS: GLIMEPIRIDE 2 MG TAB PO SCH (09:14)
[2016-07-29] MEDS: CARVEDILOL 6.25 MG TAB PO SCH (09:14)
[2016-07-29] MEDS: CLOPIDOGREL 75 MG TAB PO SCH (09:14)
[2016-07-29] MEDS: ASPIRIN EC 81 MG TABEC PO SCH (09:14)
[2016-07-29] MEDS: POTASSIUM CHLORIDE 10 MEQ CONTROLLED RELEASE TAB PO SCH (09:14)
[2016-07-29] MEDS: amLODIPine BESYLATE 5 MG TAB PO SCH (09:15)
[2016-07-29] MEDS: PANTOPRAZOLE SOD 40 MG DELAYED RELEASE TAB PO SCH (09:15)
[2016-07-29] MEDS: HEPARIN SODIUM - SQ 10,000 UNITS/ML VIAL SQ SCH (09:15)
[2016-07-29] MEDS: FUROSEMIDE 40 MG TAB PO SCH (09:15)
[2016-07-29] MEDS: prednisoLONE ACETATE 1% OPHT SUSP 5 ML BTL LEFT EYE SCH (09:16)
[2016-07-29] MEDS: DORZOLAMIDE 2% OPTH SOLN 200 DROP/10 ML BTLO RIGHT EYE SCH (09:16)
[2016-07-29 11:31] VITALS: BP 123/59; PULSE 64; RESP 18; TEMP 98.2; O2SAT 98
== END 2016-07-29 14:09 | disposition home or self-care (01) ==
LOC: NEPC 14:56 → NEDA 17:27 → NEPHCDU 21:13
PROVIDERS: ADMIT Specialist; ATTEND Specialist
DX: J18.9 Pneumonia, unspecified organism (principal); I13.0 Hypertensive heart and chronic kidney disease with heart failure and stage 1 through stage 4 chronic kidney disease, or unspecified chronic kidney disease; I50.9 Heart failure, unspecified; E11.22 Type 2 diabetes mellitus with diabetic chronic kidney disease; N18.9 Chronic kidney disease, unspecified; I25.10 Atherosclerotic heart disease of native coronary artery without angina pectoris; E11.65 Type 2 diabetes mellitus with hyperglycemia; I48.0 Paroxysmal atrial fibrillation; E78.5 Hyperlipidemia, unspecified; F41.9 Anxiety disorder, unspecified; K21.0 Gastro-esophageal reflux disease with esophagitis; I25.2 Old myocardial infarction; R05 Cough; E11.40 Type 2 diabetes mellitus with diabetic neuropathy, unspecified; D64.9 Anemia, unspecified; I35.0 Nonrheumatic aortic (valve) stenosis; E86.0 Dehydration; Z95.1 Presence of aortocoronary bypass graft; Z85.51 Personal history of malignant neoplasm of bladder
CPT/HCPCS: 71010; 80048; 80053; 82550; 82948; 83690; 83735; 83880; 84484; 85025; 85027; 85610; 85730; 87040; 87804; 93005; 96360; 97162; 99285; G0378; G8987; G8988; J0456; J0696; J1644; J1815; J7040; J7050

== ENCOUNTER 2016-08-01 00:06 | Observation (INO) | payer MEDICARE, BC ==
[2016-08-01] VITALS (11 sets, daily range): BP systolic 122–184; BP diastolic 55–77; PULSE 57–66; RESP 16–18; TEMP 97–98.7; O2SAT 95–99
[~2016-08-01] VITALS: Ht 149.9 cm; Wt 61.0 kg
[~2016-08-01 00:06] MED LIST changes: +ZITH500T PO
[2016-08-01 00:31] LABS: AUTOMATED NEUTROPHIL # 4.4 TH/MM3 (1.8-7.7); BASOPHIL % 0.4 % (0.0-2.0); EOSINOPHIL % 0.2 % (0.0-4.0); HEMATOCRIT 32.6 % (35.0-46.0); HEMO FLAGS DIFF FINAL; LYMPH % 18.8 % (9.0-44.0); LYMPHOCYTE # 1.2 TH/MM3 (1.0-4.8); MEAN CORPUSCULAR HEMOGLOBIN 28.2 PG (27.0-34.0); MONO % 11.9 % (0.0-8.0); NEUT % 68.7 % (16.0-70.0); PLATELET COUNT 217 TH/MM3 (150-450); RED CELL DISTRIBUTION WIDTH 13.8 % (11.6-17.2); WHITE BLOOD COUNT 6.3 TH/MM3 (4.0-11.0)
[2016-08-01 00:37] LABS: CHLORIDE 106 MEQ/L (98-107); POTASSIUM 3.5 MEQ/L (3.5-5.1); SODIUM (NA) 144 MEQ/L (136-145)
[2016-08-01 00:40] LABS: ANION GAP 8 MEQ/L (5-15); BLOOD UREA NITROGEN 28 MG/DL (7-18)
[2016-08-01 00:43] LABS: GLOMERULAR FILTRATION RATE 39 ML/MIN (>89)
[2016-08-01 00:54] LABS: CREATINE KINASE 57 U/L (26-192)
--- NOTE | 2016-08-01 01:19 | RADHPO ---
EXAM DATE/TIME: 08/01/2016 00:54 [place] COMPARISON: No previous studies available for comparison. INDICATIONS : Chest pain. MEDICAL HISTORY : Hypercholesterolemia. Congestive heart failure. SURGICAL HISTORY : Hysterectomy. CABG. ENCOUNTER: Initial ACUITY: 1 day PAIN SCORE: 7/10 LOCATION: Bilateral chest FINDINGS: PA and lateral views of the chest demonstrate prominent the pulmonary vasculature suggestive of pulmo nary venous congestion. The heart size is mildly enlarged. There is evidence of previous cardiothorac ic surgery. No evidence of pleural effusions. The bony structures are grossly intact. CONCLUSION: Pulmonary venous congestion. Aj Parrish MD on August 01, 2016 at 1:16 Board Certified Radiologist. This report was verified electronically.
--- NOTE | 2016-08-01 01:25 | PD ---
HPI Chief Complaint: Chest Pain Time Seen by Provider: 01:14 Travel History International Travel<30 days: No Contact w/Intl Traveler<30days: No Traveled to known affect area: No History of Present Illness HPI The patient is an 89-year-old female with a history of coronary artery disease who complains of left lower sternal chest pain beginning at 10 PM tonight. The pain lasts several minutes, it comes and goes. She states the pain as a pressure pain but denies any diaphoresis, shortness of breath or nausea. She states her last stress test was 2 years ago. What concerned the patient tonight is that she had her jaw pain she says she has had jaw pain previously with her heart pain. She does have a history of atrial fibrillation. 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) Endocrine: Yes Gastrointestinal Disorders: Yes (GERD) GERD: Yes Glaucoma: No Genitourinary: Yes (BLADDER CANCER/ HEMATURIA) Headaches: No Hepatitis: No Hiatal Hernia: Yes Hypertension: Yes Immune Disorder: No Implanted Vascular Access Dvce: Yes Kidney Stones: No Musculoskeletal: Yes (ARTHRITIS) Neurologic: Yes (NEUROPATHY FEET) Psychiatric: No Reproductive: No Respiratory: No Immunizations Current: Yes Migraines: No Myocardial Infarction: Yes Radiation Therapy: No Renal Failure: Yes Seizures: No Sickle Cell Disease: No Sleep Apnea: No Thyroid Disease: No Ulcer: No PNEUMOCCOCAL Vaccine (Year): 1 ?: Not Menopausal: Yes : 2 Para: 2 Past Surgical History Abdominal Surgery: No AICD: No Appendectomy: No Arteriovenous Shunt: No Body Medical Devices: STERNAL WIRES Cardiac Surgery: Yes (CABG X2 SX'S 1981, 1989) Coronary Artery Bypass Graft: Yes (1981 OPEN HEART DOUBLE BYPASS, 1989 OPEN HEART DOUBLE BYPASS) Ear Surgery: Yes Endocrine Surgery: No Eye Surgery: Yes (SCOT CATARACT ; LEFT RETINA SX) Genitourinary Surgery: No Gynecologic Surgery: Yes (HYSTERECTOMY) Hysterectomy: Yes Insulin Pump: No Joint Replacement: No Neurologic Surgery: Yes Oral Surgery: No Pacemaker: No Thoracic Surgery: Yes Family History Family Myocardial Infarction: Yes Social History Alcohol Use: No Tobacco Use: No Substance Use: No Allergies-Medications (Allergen,Severity, Reaction): Coded Allergies: Penicillin (Verified Allergy, Severe, SEVERE ITCHING, 12/03/15) Reported Meds & Prescriptions Reported Meds & Active Scripts Active Zithromax (Azithromycin) 500 Mg Tab 500 Mg PO DAILY Requip (Ropinirole) 1 Mg Tab 1 Mg PO HS Plavix (Clopidogrel Bisulfate) 75 Mg Tab 75 Mg PO DAILY Reported Zetia (Ezetimibe) 10 Mg Tab 10 Mg PO HS Pred Forte Opth Drops (Prednisolone Acetate Opth Drops) 1% Susp 1 Drop LEFT EYE BID Pantoprazole (Pantoprazole Sodium) 40 Mg Tab 40 Mg PO DAILY Novolin 70-30 Inj (Insulin Human Isoph/Insulin Regular) 1,000 Unit/10 Ml Vial 16 Units SQ BID Nitroglycerin SL (Nitroglycerin) 0.4 Mg Subl 0.4 Mg SL DIRECTED PRN ONE TABLET UNDER THE TONGUE NEEDED FOR CHEST PAIN, MAY REPEAT EVERY FIVE MINUTES FOR A TOTAL OF 3 DOSES OR CALL 911 IF NO RELIEF Lyrica (Pregabalin) 50 Mg Cap 50 Mg PO BID Isosorbide Mononitrate 20 Mg Tab 20 Mg PO BID Lortab (Hydrocodone-Acetaminophen) 5-325 Mg Tab 1-2 Tab PO Q4-6H PRN Glimepiride 2 Mg Tab 2 Mg PO BID Lasix (Furosemide) 40 Mg Tab 40 Mg PO DAILY Dorzolamide Opth Drops (Dorzolamide HCl) 2% Soln 1 Drop RIGHT EYE BID Carvedilol 6.25 Mg Tab 6.25 Mg PO BID K-Tab (Potassium Chloride) 10 Meq Tab 10 Meq PO BID Aspirin 81 Mg Tabdr 81 Mg PO DAILY Just Tears Eye Drops (Artificial Tear Solution Opth Drops) 1 Chelsey Chelsey 1 Drop EACH EYE DAILY PRN Amlodipine (Amlodipine Besylate) 5 Mg Tab 5 Mg PO DAILY Review of Systems Except as stated in HPI: all other systems reviewed are Neg Physical Exam Narrative GENERAL: The patient is thin, frail, alert and oriented 3 in no apparent distress at this time. The vital signs show blood pressure 1 [id number] but are otherwise normal. SKIN: Focused skin assessment warm/dry. HEAD: Atraumatic. Normocephalic. EYES: Pupils equal and round. No scleral icterus. No injection or drainage. ENT: No nasal bleeding or discharge. Mucous membranes pink and moist. NECK: Trachea midline. No JVD. CARDIOVASCULAR: Regular rate and rhythm. No murmur appreciated. RESPIRATORY: No accessory muscle use. Clear to auscultation. Breath sounds equal bilaterally. GASTROINTESTINAL: Abdomen soft, non-tender, nondistended. Hepatic and splenic margins not palpable. MUSCULOSKELETAL: No obvious deformities. No clubbing. No cyanosis. No edema. NEUROLOGICAL: Awake and alert. No obvious cranial nerve deficits. Motor grossly within normal limits. Normal speech. PSYCHIATRIC: Appropriate mood and affect; insight and judgment normal. Data Data Last Documented VS Vital Signs Date Time Temp Pulse Resp B/P Pulse Ox O2 Delivery O2 Flow Rate FiO2 08/01/16 00:35 66 16 97 Room Air 08/01/16 00:10 98.2 184/63 Orders Electrocardiogram (08/01/16 00:11) Complete Blood Count With Diff (08/01/16 00:11) Basic Metabolic Panel (Bmp) (08/01/16 00:11) Ckmb (Isoenzyme) Profile (08/01/16 00:11) Troponin I (08/01/16 00:11) Iv Access Insert/Monitor (08/01/16 00:11) Ecg Monitoring (08/01/16 00:11) Oxygen Administration (08/01/16 00:11) Oximetry (08/01/16 00:11) Chest, Pa & Lat (08/01/16 ) B-Type Natriuretic Peptide (08/01/16 01:26) Labs Laboratory Tests Test 08/01/16 00:15 White Blood Count 6.3 TH/MM3 Red Blood Count 3.70 MIL/MM3 Hemoglobin 10.4 GM/DL Hematocrit 32.6 % Mean Corpuscular Volume 88.0 FL Mean Corpuscular Hemoglobin 28.2 PG Mean Corpuscular Hemoglobin 32.0 % Concent Red Cell Distribution Width 13.8 % Platelet Count 217 TH/MM3 Mean Platelet Volume 9.5 FL Neutrophils (%) (Auto) 68.7 % Lymphocytes (%) (Auto) 18.8 % Monocytes (%) (Auto) 11.9 % Eosinophils (%) (Auto) 0.2 % Basophils (%) (Auto) 0.4 % Neutrophils # (Auto) 4.4 TH/MM3 Lymphocytes # (Auto) 1.2 TH/MM3 Monocytes # (Auto) 0.7 TH/MM3 Eosinophils # (Auto) 0.0 TH/MM3 Basophils # (Auto) 0.0 TH/MM3 CBC Comment DIFF FINAL Differential Comment Sodium Level 144 MEQ/L Potassium Level 3.5 MEQ/L Chloride Level 106 MEQ/L Carbon Dioxide Level 30.0 MEQ/L Anion Gap 8 MEQ/L Blood Urea Nitrogen 28 MG/DL Creatinine 1.30 MG/DL Estimat Glomerular Filtration 39 ML/MIN Rate Random Glucose 89 MG/DL Calcium Level 8.9 MG/DL Total Creatine Kinase 57 U/L Troponin I LESS THAN 0.02 NG/ML B-Type Natriuretic Peptide 153 PG/ML MDM Medical Decision Making Medical Screen Exam Complete: Yes Emergency Medical Condition: Yes Medical Record Reviewed: Yes Interpretation(s) The EKG shows sinus rhythm with first-degree AV block. There is no change from an EKG done on the of this month except the patient is in a normal sinus rhythm with a first-degree AV block. The patient was in atrial fibrillation on the of this month.. The CBC shows a hemoglobin of 10.4 and hematocrit of 32.6 but is otherwise unremarkable. Differential Diagnosis Acute coronary syndrome, chest wall pain, jaw pain, chest pain etiology undetermined Narrative Course I can reproduce the patient's pain by pressing on her chest wall. I can also reproduce the patient's jaw pain by pressing on the jaw. The patient states this is the way she gets when she gets her heart pain. Unfortunately, Dr. Morataya is not personnel records clerk tonight. Hopefully, she can see the patient later today in the hospital. Impression: Chest pain etiology undetermined Plan: The patient will be admitted to Dr. Gasper Krishnamurthy, I discussed the patient with Naun Buitrago. Diagnosis Primary Impression: Chest pain of uncertain etiology Admitting Information Admitting Physician Requests: Admit Triston Palacios MD Aug 01, 2016 01:25
[2016-08-01] MEDS ORDERED: ACETAMINOPHEN 500 MG CPLT PO PRN (02:15)
[2016-08-01] MEDS ORDERED: NITROGLYCERIN 0.4 MG SL 25 TABS/BTL SL PRN (02:15)
[2016-08-01] MEDS ORDERED: MORPHINE SULFATE 4 MG/ML INJ IV PRN (02:15)
[2016-08-01] MEDS: HEPARIN SODIUM - SQ 10,000 UNITS/ML VIAL SQ SCH ×2 (02:30→13:39)
[2016-08-01] MEDS: NITROGLYCERIN 2% OINT 1 GM PACKET TOP SCH ×2 (05:59→12:20)
[2016-08-01] MEDS ORDERED: ASPIRIN 325 MG TAB PO SCH (09:00)
[2016-08-01] MEDS ORDERED: SODIUM CHLORIDE 0.9% FLUSH 10 ML FLUSH IV FLUSH SCH (09:00)
[2016-08-01 09:37] LABS: HDL CHOLESTEROL 48.6 MG/DL (40.0-60.0); LDL CHOLESTEROL 53 MG/DL (0-99)
--- NOTE | 2016-08-01 13:28 | MB ---
cc: ELLIE SADLER MD DATE OF CONSULTATION: 08/01/2016 REASON FOR CONSULTATION: Chest pain. HISTORY OF PRESENT ILLNESS Ms. Wilkes is a 89-year-old female who does have a history of paroxysmal atrial fibrillation, CABG and redo CABG. She was seen last week after being diagnosed with pneumonia. She at that time had productive cough for some grayish sputum and treated with antibiotics and subsequently discharged. Her cardiac status was stable at that time. The patient today reports that she has had chest pain and was scared that it was her cardiac pain. The patient does note that the pain is reproducible with palpation, both over her chest and her jaw. She is currently pain free. PAST MEDICAL HISTORY Past medical history significant for: 1. Atrial fibrillation. 2. Arthritis. 3. Anxiety. 4. Bladder cancer. 5. CHF. 6. 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 7. Hypertension. 8. Hyperlipidemia. 9. GERD. 10. Arthritis. 11. Renal insufficiency. 12. Mild aortic stenosis and mild to moderate mitral regurgitation. ALLERGIES PENICILLIN. OUTPATIENT MEDICATIONS Include: 1. Requip. 2. Plavix. 3. Zetia. 4. Prednisone. 5. Pantoprazole. 6. Novolin. 7. Lyrica. 8. Isosorbide. 9. Lortab. 10. Gliperide. 11. Lasix. 12. Dorzolamide. 13. Carvedilol. 14. Aspirin. 15. Amlodipine. REVIEW OF SYSTEMS Except as mentioned in the HPI, all 12 systems are negative. SOCIAL HISTORY The patient does live with her son. FAMILY HISTORY Noncontributory. PHYSICAL EXAMINATION VITAL SIGNS: 97.0, 59, 18, 159/77. GENERAL: She is a well-appearing elderly female who is in no apparent distress. NECK: Her neck is free from JVD. LUNGS: Lungs are bilaterally clear to auscultation. CARDIOVASCULAR: She has a normal S1 and S2. There is 2/6 systolic murmur. No rubs or gallops appreciated. ABDOMEN: Soft. EXTREMITIES: Free from edema. EKG Without any acute ST changes. LAB VALUES Significant for BUN of 28, creatinine of 1.3. Her serial troponins are less than 0.02/less than 0.02/less than 0.02. Her LDL is 53. IMPRESSION Non-cardiac chest pain - the patient's chest pain is reproducible on exam with palpation over her sternum. I suspect that with her recent pneumonia and status post treatment with Z-Hira, that she is doing better but has likely pulled a muscle secondary to the coughing. The patient was reassured as her EKG and enzymes are negative. She can be followed as an outpatient. CAD - this is seemingly stable. History of atrial fibrillation - the patient is not on any stronger anticoagulation secondary to hematuria. I will be happy to follow up with her in 2 weeks. Ellie Sadler M.D. KEVIN/TLL /12:55 PM /1:06 PM
--- NOTE | 2016-08-01 15:40 | MH ---
cc: DRAKE MCCARTHY MD DATE OF ADMISSION: 08/01/2016 CHIEF COMPLAINT Chest pain. HISTORY OF PRESENT ILLNESS This is a 89-year-old female with past medical-surgical history significant for arthritis, history of coronary artery disease status post bypass surgery two vessels in 1981 in 1989, history of bladder cancer, history of cardiac catheterization, hearing problem right ear, GERD, arthritis, neuropathy, history of ear surgery, left retinal surgery, history of hysterectomy, came to the ER at [facility] complaining of chest pain and pressure in the left lower sternal area, started 10:00 p.m. tonight and lasted several minutes, comes and goes, pain like a pressure but denies any diaphoresis, shortness of breath and nausea, vomiting. Her last stress test was two years ago. The patient denies any chest pain at the time of examination. The patient has a history of atrial fibrillation too. Other than that nothing significant. PAST MEDICAL HISTORY/PAST SURGICAL HISTORY As dictated above. The patient also has a history of diabetes mellitus, hyperlipidemia, arthritis. SOCIAL HISTORY Denies smoking, drinking, taking any drugs. Lives at home with son. She is retired from [employer]. FAMILY HISTORY Family history is significant for nothing. ALLERGIES PENICILLIN. MEDICATIONS Includes: 1. Zithromax 500 mg p.o. daily. 2. Requip 1 mg p.o. at bedtime. 3. Plavix 75 mg p.o. daily. 4. Zetia 10 mg p.o. daily. 5. Protonix 40 mg p.o. daily. 6. Novolin-N 70/30; 16 units subcutaneous twice a day. 7. Lyrica 50 mg p.o. b.i.d. 8. Isosorbide mononitrate 20 mg p.o. b.i.d. 9. Lortab 5/325 p.o. q.4-6 hours p.r.n. pain. 10. Glimepiride 2 mg p.o. b.i.d. 11. Lasix 40 mg p.o. daily. 12. Dorzolamide ophthalmic drop 2% solution one drop right eye twice a day. 13. Carvedilol 6.25 mg twice a day. 14. Potassium chloride 10 mEq b.i.d. 15. Aspirin 81 mg p.o. daily. 16. Amlodipine 5 mg p.o. daily. REVIEW OF SYSTEMS All review of systems are negative at the time of examination. PHYSICAL EXAMINATION GENERAL: This is a 89-year-old female laying on the bed, not in acute distress. VITAL SIGNS: Temperature 97.0, pulse 59, respirations 18, blood pressure 159/77, O2 saturation 96% on room air. HEENT: Normocephalic, atraumatic. EOMI. PERRL. Oral mucosa moist. NECK: Supple. No visible thyromegaly or neck mass. Trachea central. CVS: Regular rate and rhythm. RESPIRATORY: Respirations clear to auscultation bilaterally. ABDOMEN: Soft, nontender. Bowel sounds audible. EXTREMITIES: No cyanosis or clubbing. Full range of motion of all extremities. NEURO: Awake, alert, oriented x4. No focal deficits. SKIN: Warm and dry. PSYCHE: The patient is cooperative. Mood and affect is normal. LABORATORY DATA CBC shows WBC count is 6.3, hemoglobin 10.4, hematocrit 32.6, RBC count 3.70, mono is 11.9. BMP totally unremarkable except for BUN 28 high, creatinine 1.30 high, troponin-I less than 0.02 x3. BNP 153 high. Lipid profile is normal. IMAGING STUDIES Chest x-ray was done and shows pulmonary venous congestion. EKG Shows sinus rhythm with rate of 59, nonspecific ST-T wave changes. ASSESSMENT/PLAN 1. This is a 89-year female who came to the ER diagnosed with chest pain, rule out acute coronary syndrome, cardiac enzymes x3, troponin-I less than 0.02. Cardiology has seen the patient, noncardiac chest pain per cardiology. Okay to discharge the patient per cardiology. 2. History of atrial fibrillation. The patient is not on any anticoagulation because of hematuria. 3. History of hyperlipidemia. Continue home medication. 4. History of coronary artery disease. Continue home medication. 5. History of diabetes mellitus. ADA 1800 calorie diet. NovoLog low-dose sliding scale. Check blood sugar a.c. and h.s., monitor blood sugar. 6. History of hypertension. Continue home medication. Monitor blood pressure. The patient discharged today and advised to follow with PCP and cardiology. Drake Mccarthy MD EA/MARNI /3:14 PM /3:46 PM
--- NOTE | 2016-08-01 17:51 | EKG ---
Date Performed: 08/01/2016 Time Performed: 00:08:24 PTAGE: 89 years EKG: Sinus rhythm with 1st degree A-V block Extensive ST-T changes are nonspecific Abnormal ECG PREVIOUS TRACING : 07/27/2016 15.17 DOCTOR: Álvaro Martinez Interpretating Date/Time 08/01/2016 17:50:20
--- NOTE | 2016-08-01 17:51 | EKG ---
Date Performed: 08/01/2016 Time Performed: 02:38:10 PTAGE: 89 years EKG: Sinus rhythm with first degree AV block Lateral ST-T changes are nonspecific Abnormal ECG PREVIOUS TRACING : 08/01/2016 00.08 DOCTOR: Álvaro Martinez Interpretating Date/Time 08/01/2016 17:51:02
--- NOTE | 2016-08-02 13:13 | EKG ---
Date Performed: 08/01/2016 Time Performed: 08:05:28 PTAGE: 89 years EKG: Normal Sinus rhythm Lateral ST-T changes are nonspecific Borderline ECG PREVIOUS TRACING : 08/01/2016 02.38 No significant change from previous tracing noted. DOCTOR: Milan Eugene Interpretating Date/Time 08/02/2016 13:12:27
== END 2016-08-01 17:03 | disposition home or self-care (01) ==
LOC: PHED 00:06 → INTOOBSV 02:05 → PHEDA 02:05 → PHEDH 06:03 → PH3B 10:28
PROVIDERS: ADMIT Family Medicine; ATTEND Family Medicine
DX: R07.89 Other chest pain (principal); I25.10 Atherosclerotic heart disease of native coronary artery without angina pectoris; I48.0 Paroxysmal atrial fibrillation; F41.9 Anxiety disorder, unspecified; I11.0 Hypertensive heart disease with heart failure; I50.9 Heart failure, unspecified; E11.9 Type 2 diabetes mellitus without complications; K21.9 Gastro-esophageal reflux disease without esophagitis; I44.0 Atrioventricular block, first degree; E78.5 Hyperlipidemia, unspecified; I08.0 Rheumatic disorders of both mitral and aortic valves; R31.9 Hematuria, unspecified; Z79.82 Long term (current) use of aspirin; Z95.1 Presence of aortocoronary bypass graft
CPT/HCPCS: 71020; 80048; 80061; 82550; 83880; 84484; 85025; 93005; 99285; G0378; J1644

== ENCOUNTER 2016-08-07 12:42 | Emergency (ER) | payer MEDICARE, BC ==
[~2016-08-07] VITALS: Ht 149.9 cm; Wt 81.0 kg
[2016-08-07 13:03] VITALS: BP 100/41; PULSE 70; RESP 17; TEMP 99.1; O2SAT 95
--- NOTE | 2016-08-07 13:39 | PD ---
HPI Chief Complaint: General Weakness Time Seen by Provider: 13:23 Travel History International Travel<30 days: No Contact w/Intl Traveler<30days: No Traveled to known affect area: No History of Present Illness HPI 89-year-old female here with her son for evaluation of fever, generalized weakness, recent fall. Patient has had 2 hospitalizations in the last 2 weeks and was diagnosed with pneumonia. Home health care nurse noticed a fever today and is concerned that the patient's pneumonia is not improving. Patient reportedly had a mechanical trip and fall 2 nights ago and states that she bumped her head. She is on Plavix and aspirin. No other antiplatelets or anticoagulants. She is also complaining of some right elbow pain and ecchymosis as well as substernal chest pain which she was complaining of during her last 2 admissions as well as an this was deemed to be noncardiac. Patient is also having diffuse abdominal cramping. She denies vomiting or diarrhea. Mild dyspnea. 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) Endocrine: Yes Gastrointestinal Disorders: Yes (GERD) GERD: Yes Glaucoma: No Genitourinary: Yes (BLADDER CANCER/ HEMATURIA) Headaches: No Hepatitis: No Hiatal Hernia: Yes Hypertension: Yes Immune Disorder: No Implanted Vascular Access Dvce: Yes Kidney Stones: No Musculoskeletal: Yes (ARTHRITIS) Neurologic: Yes (NEUROPATHY FEET) Psychiatric: No Reproductive: No Respiratory: No Immunizations Current: Yes Migraines: No Myocardial Infarction: Yes Radiation Therapy: No Renal Failure: Yes Seizures: No Sickle Cell Disease: No Sleep Apnea: No Thyroid Disease: No Ulcer: No PNEUMOCCOCAL Vaccine (Year): 1 ?: Not Menopausal: Yes : 2 Para: 2 Past Surgical History Abdominal Surgery: No AICD: No Appendectomy: No Arteriovenous Shunt: No Body Medical Devices: STERNAL WIRES Cardiac Surgery: Yes (CABG X2 SX'S 1981, 1989) Coronary Artery Bypass Graft: Yes (1981 OPEN HEART DOUBLE BYPASS, 1989 OPEN HEART DOUBLE BYPASS) Ear Surgery: Yes Endocrine Surgery: No Eye Surgery: Yes (SCOT CATARACT ; LEFT RETINA SX) Genitourinary Surgery: No Gynecologic Surgery: Yes (HYSTERECTOMY) Hysterectomy: Yes Insulin Pump: No Joint Replacement: No Neurologic Surgery: Yes Oral Surgery: No Pacemaker: No Thoracic Surgery: Yes Social History Alcohol Use: No Tobacco Use: No Substance Use: No Allergies-Medications (Allergen,Severity, Reaction): Coded Allergies: Penicillin (Verified Allergy, Severe, SEVERE ITCHING, 08/07/16) Reported Meds & Prescriptions Reported Meds & Active Scripts Active Zithromax (Azithromycin) 500 Mg Tab 500 Mg PO DAILY Requip (Ropinirole) 1 Mg Tab 1 Mg PO HS Plavix (Clopidogrel Bisulfate) 75 Mg Tab 75 Mg PO DAILY Reported Zetia (Ezetimibe) 10 Mg Tab 10 Mg PO HS Pred Forte Opth Drops (Prednisolone Acetate Opth Drops) 1% Susp 1 Drop LEFT EYE BID Pantoprazole (Pantoprazole Sodium) 40 Mg Tab 40 Mg PO DAILY Novolin 70-30 Inj (Insulin Human Isoph/Insulin Regular) 1,000 Unit/10 Ml Vial 16 Units SQ BID Nitroglycerin SL (Nitroglycerin) 0.4 Mg Subl 0.4 Mg SL DIRECTED PRN ONE TABLET UNDER THE TONGUE NEEDED FOR CHEST PAIN, MAY REPEAT EVERY FIVE MINUTES FOR A TOTAL OF 3 DOSES OR CALL 911 IF NO RELIEF Lyrica (Pregabalin) 50 Mg Cap 50 Mg PO BID Isosorbide Mononitrate 20 Mg Tab 20 Mg PO BID Lortab (Hydrocodone-Acetaminophen) 5-325 Mg Tab 1-2 Tab PO Q4-6H PRN Glimepiride 2 Mg Tab 2 Mg PO BID Lasix (Furosemide) 40 Mg Tab 40 Mg PO DAILY Dorzolamide Opth Drops (Dorzolamide HCl) 2% Soln 1 Drop RIGHT EYE BID Carvedilol 6.25 Mg Tab 6.25 Mg PO BID K-Tab (Potassium Chloride) 10 Meq Tab 10 Meq PO BID Aspirin 81 Mg Tabdr 81 Mg PO DAILY Just Tears Eye Drops (Artificial Tear Solution Opth Drops) 1 Chelsey Chelsey 1 Drop EACH EYE DAILY PRN Amlodipine (Amlodipine Besylate) 5 Mg Tab 5 Mg PO DAILY Review of Systems Except as stated in HPI: all other systems reviewed are Neg Physical Exam Narrative GENERAL: Well-developed, well-nourished, no apparent distress, keeps eyes closed. SKIN: Focused skin assessment warm/dry. Ecchymosis to right antecubital fossa. No lacerations or abrasions. HEAD: Atraumatic. Normocephalic. EYES: Pupils equal and round. No scleral icterus. No injection or drainage. ENT: No nasal bleeding or discharge. Mucous membranes pink and moist. NECK: Trachea midline. No JVD. CARDIOVASCULAR: Regular rate and rhythm. RESPIRATORY: No accessory muscle use. Clear to auscultation. Breath sounds equal bilaterally. GASTROINTESTINAL: Abdomen soft, non-tender, nondistended. Normal bowel sounds. No hernias. MUSCULOSKELETAL: No obvious deformities. No clubbing. No cyanosis. No edema. NEUROLOGICAL: Awake and alert. No obvious cranial nerve deficits. Motor grossly within normal limits. Normal speech. PSYCHIATRIC: Appropriate mood and affect; insight and judgment normal. Data Data Last Documented VS Vital Signs Date Time Temp Pulse Resp B/P Pulse Ox O2 Delivery O2 Flow Rate FiO2 08/07/16 14:13 99.1 55 14 109/47 93 Room Air Orders Electrocardiogram (08/07/16 13:29) Complete Blood Count With Diff (08/07/16 13:29) Comprehensive Metabolic Panel (08/07/16 13:29) Prothrombin Time / Inr (Pt) (08/07/16 13:29) Act Partial Throm Time (Ptt) (08/07/16 13:29) Lactic Acid Sepsis Protocol (08/07/16 13:29) Ckmb (Isoenzyme) Profile (08/07/16 13:29) Troponin I (08/07/16 13:29) Urinalysis - C+S If Indicated (08/07/16 13:29) Blood Culture (08/07/16 13:29) Chest, Single Ap (08/07/16 13:29) Blood Glucose (08/07/16 13:29) Ecg Monitoring (08/07/16 13:29) Iv Access Insert/Monitor (08/07/16 13:29) Oximetry (08/07/16 13:29) Oxygen Administration (08/07/16 13:29) B-Type Natriuretic Peptide (08/07/16 13:29) Ct Abd/Pel W/O Iv Contrast (08/07/16 ) Ct Thorax/ Chest Wo Iv Contras (08/07/16 ) Ct Brain W/O Iv Contrast(Rout) (08/07/16 ) Ct Cerv Spine W/O Contrast (08/07/16 ) Elbow, Complete (4 Vws) (08/07/16 ) Cath For Specimen (08/07/16 13:29) Labs Laboratory Tests Test 08/07/16 13:30 White Blood Count 9.3 TH/MM3 Red Blood Count 3.40 MIL/MM3 Hemoglobin 9.6 GM/DL Hematocrit 29.6 % Mean Corpuscular Volume 87.0 FL Mean Corpuscular Hemoglobin 28.4 PG Mean Corpuscular Hemoglobin 32.6 % Concent Red Cell Distribution Width 13.3 % Platelet Count 210 TH/MM3 Mean Platelet Volume 10.1 FL Neutrophils (%) (Auto) 79.7 % Lymphocytes (%) (Auto) 10.0 % Monocytes (%) (Auto) 9.9 % Eosinophils (%) (Auto) 0.1 % Basophils (%) (Auto) 0.3 % Neutrophils # (Auto) 7.4 TH/MM3 Lymphocytes # (Auto) 0.9 TH/MM3 Monocytes # (Auto) 0.9 TH/MM3 Eosinophils # (Auto) 0.0 TH/MM3 Basophils # (Auto) 0.0 TH/MM3 CBC Comment DIFF FINAL Differential Comment Prothrombin Time 11.4 SEC Prothromb Time International 1.0 RATIO Ratio Activated Partial 29.3 SEC Thromboplast Time Sodium Level 142 MEQ/L Potassium Level 3.5 MEQ/L Chloride Level 103 MEQ/L Carbon Dioxide Level 29.3 MEQ/L Anion Gap 10 MEQ/L Blood Urea Nitrogen 29 MG/DL Creatinine 1.60 MG/DL Estimat Glomerular Filtration 30 ML/MIN Rate Random Glucose 202 MG/DL Lactic Acid Level 1.4 mmol/L Calcium Level 7.7 MG/DL Total Bilirubin 0.5 MG/DL Aspartate Amino Transf 10 U/L (AST/SGOT) Alanine Aminotransferase 13 U/L (ALT/SGPT) Alkaline Phosphatase 71 U/L Total Creatine Kinase 47 U/L Troponin I LESS THAN 0.02 NG/ML B-Type Natriuretic Peptide 409 PG/ML Total Protein 5.8 GM/DL Albumin 2.7 GM/DL [facility] Medical Decision Making Medical Screen Exam Complete: Yes Emergency Medical Condition: Yes Medical Record Reviewed: Yes Interpretation(s) EKG: A. fib, rate 57, normal axis, prolonged QT, no acute ischemic abnormality. Differential Diagnosis Pneumonia, metabolic abnormality, anemia, UTI, intra-abdominal infection, intracranial trauma, cervical spine injury, ACS Narrative Course Initial vital signs show heart rate 70, blood pressure 100/41, pulse ox 95% on room air, oral temp of 99.1F. CBC shows WBC 9.3, hemoglobin 9.6, hematocrit 29.6 which is around her baseline , platelets 210, neutrophils 79.7%. CMP is markable for BUN 29, creatinine 1.6 which is around her baseline, random glucose 202, otherwise unremarkable. Cardiac enzymes are negative. BNP is 409. Lactic acid is 1.4. CT head shows no acute intracranial abnormality. CT cervical spine shows degenerative changes, no acute fractures. Right elbow x-ray shows osteopenia, no fractures. At approximately 4:00 PM at the end of my shift the patient was signed out to Dr. Lynn who will follow up with the rest of the CT findings and will disposition the patient. Up until this point with the patient and the patient' s son were made aware of all findings. Froylan Oneil MD Aug 07, 2016 13:39
[2016-08-07 13:57] LABS: AUTOMATED NEUTROPHIL # 7.4 TH/MM3 (1.8-7.7); BASOPHIL % 0.3 % (0.0-2.0); EOSINOPHIL % 0.1 % (0.0-4.0); HEMATOCRIT 29.6 % (35.0-46.0); LYMPHOCYTE # 0.9 TH/MM3 (1.0-4.8); MEAN CORPUSCULAR HEMOGLOBIN 28.4 PG (27.0-34.0); MEAN CORPUSCULAR HGB CONC 32.6 % (32.0-36.0); MONO % 9.9 % (0.0-8.0); NEUT % 79.7 % (16.0-70.0); PLATELET COUNT 210 TH/MM3 (150-450); RED CELL DISTRIBUTION WIDTH 13.3 % (11.6-17.2); WHITE BLOOD COUNT 9.3 TH/MM3 (4.0-11.0)
[2016-08-07 14:00] VITALS: RESP 14; O2SAT 97
[2016-08-07 14:01] LABS: CHLORIDE 103 MEQ/L (98-107); POTASSIUM 3.5 MEQ/L (3.5-5.1); SODIUM (NA) 142 MEQ/L (136-145)
[2016-08-07 14:05] LABS: ANION GAP 10 MEQ/L (5-15); APTT (PATIENT) 29.3 SEC (24.3-30.1); BICARBONATE 29.3 MEQ/L (21.0-32.0); BLOOD UREA NITROGEN 29 MG/DL (7-18); PROTHROMBIN TIME - PATIENT 11.4 SEC (9.8-11.6)
[2016-08-07 14:08] LABS: ALT (GPT) 13 U/L (10-53); AST (GOT) 10 U/L (15-37); GLOMERULAR FILTRATION RATE 30 ML/MIN (>89)
[2016-08-07 14:09] LABS: TOTAL BILIRUBIN ADULT 0.5 MG/DL (0.2-1.0)
[2016-08-07 14:10] LABS: ALKALINE PHOSPHATASE 71 U/L (45-117); HEMO FLAGS DIFF FINAL
[2016-08-07 14:13] VITALS: BP 109/47; PULSE 55; RESP 14; TEMP 99.1; O2SAT 93
[2016-08-07 14:18] LABS: CREATINE KINASE 47 U/L (26-192)
--- NOTE | 2016-08-07 15:04 | RADHPO ---
EXAM DATE/TIME: 08/07/2016 14:10 [facility] COMPARISON: CHEST SINGLE AP, July 27, 2016, 15:32. INDICATIONS : Fever. MEDICAL HISTORY : Chronic obstructive pulmonary disease. Congestive heart failure. SURGICAL HISTORY : CABG. ENCOUNTER: Initial ACUITY: 1 day PAIN SCORE: 6/10 LOCATION: Bilateral chest FINDINGS: Single AP view of the chest. Median sternotomy wires. The lungs are clear. Chronic cardiac silhouette enlargement unchanged. No evidence of pleural effusion or pneumothorax. CONCLUSION: No acute cardiopulmonary disease identified. Nikita Adams MD on August 07, 2016 at 15:02 Board Certified Radiologist. This report was verified electronically.
--- NOTE | 2016-08-07 15:06 | RADHPO ---
EXAM DATE/TIME: 08/07/2016 14:13 [facility] COMPARISON: No previous studies available for comparison. INDICATIONS : Right elbow pain post fall. MEDICAL HISTORY : None. SURGICAL HISTORY : None. ENCOUNTER: Initial ACUITY: 1 day PAIN SCORE: 3/10 LOCATION: Right elbow. FINDINGS: No definite fractures, or dislocations are identified. No definite lytic or sclerotic lesion is seen . Slight osteopenia is seen. CONCLUSION: Slight osteopenia. Wali Knight MD on August 07, 2016 at 15:04 Board Certified Radiologist. This report was verified electronically.
--- NOTE | 2016-08-07 15:47 | RADHPO ---
EXAM DATE/TIME: 08/07/2016 15:24 [facility] COMPARISON: CT BRAIN W/O CONTRAST, March 27, 2016, 9:45. INDICATIONS : Generalized weakness. RADIATION DOSE: 52.06 CTDIvol (mGy) MEDICAL HISTORY : Cardiovascular disease. Hypertension. Carcinoma, bladder. SURGICAL HISTORY : CABG Hysterectomy.Bilateral eye implant ENCOUNTER: Initial ACUITY: 1 day PAIN SCALE: 0/10 LOCATION: cranial TECHNIQUE: Multiple contiguous axial images were obtained of the head. Using automated exposure control and adj ustment of the mA and/or kV according to patient size, radiation dose was kept as low as reasonably a chievable to obtain optimal diagnostic quality images. FINDINGS: There is no evidence for intracranial hemorrhage, mass effect, mass lesions, or edema. The visualize d bony structures appear intact. Slight degree of brain atrophy is seen. Slight periventricular whit e matter changes are seen nonspecific mostly consistent with chronic small vessel ischemic changes. There are no signs of acute infarction for technique. CONCLUSION: Slight atrophic and small vessel ischemic changes without any evidence for acute hemorrhage or mass effect. Wali Knight MD on August 07, 2016 at 15:43 Board Certified Radiologist. This report was verified electronically.
--- NOTE | 2016-08-07 16:07 | RADHPO ---
EXAM DATE/TIME: 08/07/2016 15:24 [facility] COMPARISON: No previous studies available for comparison. INDICATIONS : Generalized weakness. RADIATION DOSE: 22.99 CTDIvol (mGy) MEDICAL HISTORY : Cardiovascular disease. Hypertension. Carcinoma, bladder. SURGICAL HISTORY : CABG Hysterectomy. ENCOUNTER: Initial ACUITY: 1 day PAIN SCALE: 0/10 LOCATION: neck TECHNIQUE: Volumetric scanning of the cervical spine was performed. Multiplanar reconstructions in the sagittal, coronal and oblique axial planes were performed. Using automated exposure control and adjustment o f the mA and/or kV according to patient size, radiation dose was kept as low as reasonably achievable to obtain optimal diagnostic quality images. FINDINGS: No significant subluxation or soft tissue swelling is seen. No definite fracture is seen for techniqu e. C2-C3: No appreciable compromised to the thecal sac, exiting nerve roots are seen. The neural maite cindy are patent bilaterally. No appreciable thecal sac stenosis is seen. C3-C4: No appreciable compromised to the thecal sac, exiting nerve roots are seen. The neural maite cindy are patent bilaterally. No appreciable thecal sac stenosis is seen. C4-C5: Slight degenarative changes are seen within the disc space and facets. Slight bulging disc and hypertrophic changes are seen with indentation on the thecal sac and no significant compromise to th e thecal sac or the exiting nerve roots. C5-C6: Moderate degenarative changes are seen within the disc space and facets. There is bulging disc and hypertrophic change protruding into bilateral lateral recess without any significant compromise to the exiting nerve roots. Slight bulging disc and hypertrophic changes are seen with indentation on the thecal sac and no significant compromise to the thecal sac or the exiting nerve roots. C6-C7: No appreciable compromised to the thecal sac, exiting nerve roots are seen. The neural maite cindy are patent bilaterally. No appreciable thecal sac stenosis is seen. C7-T1: No appreciable compromised to the thecal sac, exiting nerve roots are seen. The neural maite cindy are patent bilaterally. No appreciable thecal sac stenosis is seen CONCLUSION: Degenerative spondylosis without any significant compromise to the thecal sac or the exi ting nerve roots. Wali Knight MD on August 07, 2016 at 16:00 Board Certified Radiologist. This report was verified electronically.
--- NOTE | 2016-08-07 16:12 | RADHPO ---
EXAM DATE/TIME: 08/07/2016 15:27 [facility] COMPARISON: CT ABDOMEN & PELVIS W/O CONTRAST, November 17, 2014, 7:32. INDICATIONS : Generalized weakness. ORAL CONTRAST: No oral contrast ingested. RADIATION DOSE: 13.88 CTDIvol (mGy) ; Combined studies - Thorax/Abdomen/Pelvis MEDICAL HISTORY : Cardiovascular disease. Hypertension. Carcinoma, bladder. SURGICAL HISTORY : CABG Hysterectomy. ENCOUNTER: Initial ACUITY: 1 day PAIN SCALE: 0/10 LOCATION: abdomen/pelvis TECHNIQUE: Volumetric scanning of the abdomen and pelvis was performed. Using automated exposure control and ad justment of the mA and/or kV according to patient size, radiation dose was kept as low as reasonably achievable to obtain optimal diagnostic quality images. FINDINGS: CT Abdomen: The liver, spleen, kidneys, adrenals are unremarkable. There is no evidence for any appre ciable pathological adenopathy, free fluid, or bowel obstruction. The gallbladder demonstrates multi ple stones without gallbladder wall thickening, or pericholecystic fluid. Chronic vascular calcificat ions are present involving the aorta, iliac arteries without any significant stenosis or aneurysmal d ilatations for technique. The pancreas appears atrophic and fatty replaced. 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 CT pelvis: There is no evidence for mass, abscess formation, or any significant adenopathy within the pelvis. There is an approximate 4 cm lipoma in the anterior thigh on the right. There are degenerati ve changes and possible bulging discs in the lower lumbosacral spine not adequately characterized. Th ere is also scoliosis convexity towards the left.. There is moderate amount of stool throughout the c olon. CONCLUSION: Cholelithiasis and moderate amount of stool throughout the colon, chronic vascular ca lcifications. KNohemy Knight MD on August 07, 2016 at 16:05 Board Certified Radiologist. This report was verified electronically.
--- NOTE | 2016-08-07 16:37 | RADHPO ---
EXAM DATE/TIME: 08/07/2016 15:27 [facility] COMPARISON: CT PULMONARY ANGIOGRAM, September 16, 2014, 12:04. INDICATIONS : Generalized weakness. RADIATION DOSE: 13.88 CTDIvol (mGy) ; Combined studies - Thorax/Abdomen/Pelvis MEDICAL HISTORY : Cardiovascular disease. Hypertension. Carcinoma, bladder. SURGICAL HISTORY : CABG Hysterectomy. ENCOUNTER: Initial ACUITY: 1 day PAIN SCALE: 0/10 LOCATION: chest TECHNIQUE: Volumetric scanning of the chest was performed. Using automated exposure control and adjustment of t he mA and/or kV according to patient size, radiation dose was kept as low as reasonably achievable to obtain optimal diagnostic quality images. FINDINGS: Slight areas of scarring is seen in the lungs bilaterally not changed, however there are a few nodula r densities in the right upper lobe most likely inflammatory subcentimeter in size not present previo usly.. There is no pleural effusion. No appreciable pathological adenopathy is seen within the medi astinum. There is evidence for prior median sternotomy. Coronary artery calcifications are seen typic ally seen with CAD and need to be evaluated clinically. There are degenerative changes within the tho racic spine and the bony structures appear slightly osteopenic. CONCLUSION: Probable inflammatory nodules in the right upper lobe not present previously, repeat noncontrast chest CT is suggested in 3 months as a conservative follow up after appropriate clinical therapy. Wali Knight MD on August 07, 2016 at 16:31 Board Certified Radiologist. This report was verified electronically.
[2016-08-07 17:08] LABS: BLOOD, URINE TRACE (NEG); GLUCOSE,URINE NEG (NEG); KETONE, URINE NEG (NEG); NITRITE,URINE NEG (NEG); PH, URINE 5.5 (5.0-8.5)
[2016-08-07 17:10] LABS: METHOD OF COLLECTION CATH; URINE COLOR YELLOW (YELLW/STRAW)
[2016-08-07 17:17] LABS: COMMENT (UR) CATH-CULT NOT IND; CULTURE IF INDICATED CATH CULTURE NOT IND; RBC, URINE 0-3 /hpf (0-3); SQUAMOUS EPITHELIAL CELL URINE > 8 /hpf (0-5)
[2016-08-07 17:18] LABS: COMMENT2 (UR) MUCOUS PRESENT; HYALINE CAST, URINE 0-2 /lpf (RARE)
--- NOTE | 2016-08-07 17:18 | PD ---
Physical Exam Date Seen by Provider: Aug 07, 2016 Time Seen by Provider: 17:15 Narrative 89-year-old female had a recent admission for pneumonia. She presented with generalized weakness. She has not been eating well at home. She has a history of diabetes. Dr. Oneil was seen initially and ordered multiple CTs. CT of the chest did show some nodules which were thought to be inflammatory and follow-up was recommended. The scan is negative. Her lab work shows some anemia and renal insufficiency that has been present. Urinalysis is negative. Patient did have a transient hypoglycemic episode while in the ER. This responded to oral fluids. Patient had presented with generalized weakness but is feeling better. She wishes to be released. She lives with her son Data Data Last Documented VS Vital Signs Date Time Temp Pulse Resp B/P Pulse Ox O2 Delivery O2 Flow Rate FiO2 08/07/16 18:23 62 18 136/80 97 08/07/16 14:13 99.1 Room Air Orders Electrocardiogram (08/07/16 13:29) Complete Blood Count With Diff (08/07/16 13:29) Comprehensive Metabolic Panel (08/07/16 13:29) Prothrombin Time / Inr (Pt) (08/07/16 13:29) Act Partial Throm Time (Ptt) (08/07/16 13:29) Lactic Acid Sepsis Protocol (08/07/16 13:29) Ckmb (Isoenzyme) Profile (08/07/16 13:29) Troponin I (08/07/16 13:29) Urinalysis - C+S If Indicated (08/07/16 13:29) Blood Culture (08/07/16 13:29) Chest, Single Ap (08/07/16 13:29) Blood Glucose (08/07/16 13:29) Ecg Monitoring (08/07/16 13:29) Iv Access Insert/Monitor (08/07/16 13:29) Oximetry (08/07/16 13:29) Oxygen Administration (08/07/16 13:29) B-Type Natriuretic Peptide (08/07/16 13:29) Ct Abd/Pel W/O Iv Contrast (08/07/16 ) Ct Thorax/ Chest Wo Iv Contras (08/07/16 ) Ct Brain W/O Iv Contrast(Rout) (08/07/16 ) Ct Cerv Spine W/O Contrast (08/07/16 ) Elbow, Complete (4 Vws) (08/07/16 ) Cath For Specimen (08/07/16 13:29) Labs Laboratory Tests Test 08/07/16 08/07/16 13:30 16:30 White Blood Count 9.3 TH/MM3 Red Blood Count 3.40 MIL/MM3 Hemoglobin 9.6 GM/DL Hematocrit 29.6 % Mean Corpuscular Volume 87.0 FL Mean Corpuscular Hemoglobin 28.4 PG Mean Corpuscular Hemoglobin 32.6 % Concent Red Cell Distribution Width 13.3 % Platelet Count 210 TH/MM3 Mean Platelet Volume 10.1 FL Neutrophils (%) (Auto) 79.7 % Lymphocytes (%) (Auto) 10.0 % Monocytes (%) (Auto) 9.9 % Eosinophils (%) (Auto) 0.1 % Basophils (%) (Auto) 0.3 % Neutrophils # (Auto) 7.4 TH/MM3 Lymphocytes # (Auto) 0.9 TH/MM3 Monocytes # (Auto) 0.9 TH/MM3 Eosinophils # (Auto) 0.0 TH/MM3 Basophils # (Auto) 0.0 TH/MM3 CBC Comment DIFF FINAL Differential Comment Prothrombin Time 11.4 SEC Prothromb Time International 1.0 RATIO Ratio Activated Partial 29.3 SEC Thromboplast Time Sodium Level 142 MEQ/L Potassium Level 3.5 MEQ/L Chloride Level 103 MEQ/L Carbon Dioxide Level 29.3 MEQ/L Anion Gap 10 MEQ/L Blood Urea Nitrogen 29 MG/DL Creatinine 1.60 MG/DL Estimat Glomerular Filtration 30 ML/MIN Rate Random Glucose 202 MG/DL Lactic Acid Level 1.4 mmol/L Calcium Level 7.7 MG/DL Total Bilirubin 0.5 MG/DL Aspartate Amino Transf 10 U/L (AST/SGOT) Alanine Aminotransferase 13 U/L (ALT/SGPT) Alkaline Phosphatase 71 U/L Total Creatine Kinase 47 U/L Troponin I LESS THAN 0.02 NG/ML B-Type Natriuretic Peptide 409 PG/ML Total Protein 5.8 GM/DL Albumin 2.7 GM/DL Urine Collection Type CATH Urine Color YELLOW Urine Turbidity CLEAR Urine pH 5.5 Urine Specific [place] 1.009 Urine Protein NEG mg/dL Urine Glucose (UA) NEG mg/dL Urine Ketones NEG mg/dL Urine Occult Blood TRACE Urine Nitrite NEG Urine Bilirubin NEG Urine Leukocyte Esterase NEG Urine RBC 0-3 /hpf Urine Squamous Epithelial > 8 /hpf Cells Urine Amorphous Sediment MOD Urine Hyaline Casts 0-2 /lpf Microscopic Urinalysis Comment CATH-CULT NOT IND Urine Collection Time 1630 MDM Medical Record Reviewed: Yes Supervised Visit with JOANNA: Yes Differential Diagnosis Differential includes pneumonia, electrolyte imbalance, Narrative Course CT of the chest shows some inflammatory nodules for which follow-up is recommended. Patient has been advised of this. She is stable for discharge. Did have a hypoglycemic episode responded to by mouth fluids. She is also very well here. I recommended she hold her diabetic medication today Diagnosis Primary Impression: Diabetes Additional Impression: resolving pneumoniA Leonardo Kendrick MD Aug 07, 2016 17:18
[2016-08-07 18:23] VITALS: BP 136/80
--- NOTE | 2016-08-08 23:07 | EKG ---
Date Performed: 08/07/2016 Time Performed: 13:46:52 PTAGE: 89 years EKG: Atrial fibrillation with slow ventricular response Prolonged QT interval Possible anterior infarct - age undetermined Lateral ST-T changes are nonspecific Abnormal ECG PREVIOUS TRACING : 08/01/2016 08.05 Compared to prior tracing no significant change DOCTOR: Kale Mustafa Interpretating Date/Time 08/08/2016 23:05:24
== END 2016-08-07 18:25 | disposition home or self-care (01) ==
LOC: PHED 12:42
DX: E11.9 Type 2 diabetes mellitus without complications (principal); J18.9 Pneumonia, unspecified organism; M25.521 Pain in right elbow; R07.89 Other chest pain; R53.1 Weakness; R10.9 Unspecified abdominal pain; I10 Essential (primary) hypertension; I48.91 Unspecified atrial fibrillation; Z79.01 Long term (current) use of anticoagulants
CPT/HCPCS: 70450; 71010; 71250; 72125; 73080; 74176; 80053; 81001; 82550; 83605; 83880; 84484; 85025; 85610; 85730; 87040; 93005; 99285; P9612

== ENCOUNTER 2016-10-06 05:49 | Inpatient (IN) | payer MEDICARE, BC ==
[2016-10-06] VITALS (11 sets, daily range): BP systolic 107–152; BP diastolic 50–70; PULSE 51–71; RESP 16–22; TEMP 97.6–98.6; O2SAT 93–99
[~2016-10-06] VITALS: Ht 149.9 cm; Wt 63.3 kg
--- NOTE | 2016-10-06 05:57 | PD ---
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 PATIENT STATES HER PCP IS DR MENDEZ AND RECORD PRESS SUPERVISOR IS DR SADLER PENDING SALE TO [facility] Past Medical History Hx Anticoagulant Therapy: Yes Arthritis: Yes Asthma: No Autoimmune Disease: No Blood Disorders: No Anxiety: Yes Depression: No Heart Rhythm Problems: Yes Cancer: Yes (BLADDER) Cardiac Catheterization: Yes Cardiovascular Problems: Yes (CABG) High Cholesterol: Yes Chemotherapy: No Chest Pain: Yes Congestive Heart Failure: Yes COPD: No Cerebrovascular Accident: No Diabetes: Yes Diminished Hearing: Yes (HEARING AID RIGHT EAR) Endocrine: Yes Gastrointestinal Disorders: Yes (GERD) GERD: Yes Glaucoma: No Genitourinary: Yes (BLADDER CANCER/ HEMATURIA) Headaches: No Hepatitis: No Hiatal Hernia: Yes Hypertension: Yes Immune Disorder: No Implanted Vascular Access Dvce: Yes Kidney Stones: No Musculoskeletal: Yes (ARTHRITIS) Neurologic: Yes (NEUROPATHY FEET) Psychiatric: No Reproductive: No Respiratory: No Immunizations Current: Yes Migraines: No Myocardial Infarction: Yes Radiation Therapy: No Renal Failure: Yes Seizures: No Sickle Cell Disease: No Sleep Apnea: No Thyroid Disease: No Ulcer: No PNEUMOCCOCAL Vaccine (Year): 1 Menopausal: Yes : 2 Para: 2 Past Surgical History Abdominal Surgery: No AICD: No Appendectomy: No Arteriovenous Shunt: No Body Medical Devices: STERNAL WIRES Cardiac Surgery: Yes (CABG X2 SX'S 1981, 1989) Coronary Artery Bypass Graft: Yes (1981 OPEN HEART DOUBLE BYPASS, 1989 OPEN HEART DOUBLE BYPASS) Ear Surgery: Yes Endocrine Surgery: No Eye Surgery: Yes (SCOT CATARACT ; LEFT RETINA SX) Genitourinary Surgery: No Gynecologic Surgery: Yes (HYSTERECTOMY) Hysterectomy: Yes Insulin Pump: No Joint Replacement: No Neurologic Surgery: Yes Oral Surgery: No Pacemaker: No Thoracic Surgery: Yes Social History Alcohol Use: No Tobacco Use: No Substance Use: No Allergies-Medications (Allergen,Severity, Reaction): Coded Allergies: Penicillin (Verified Allergy, Severe, SEVERE ITCHING, 10/06/16) Reported Meds & Prescriptions Reported Meds & Active Scripts Active Requip (Ropinirole) 1 Mg Tab 1 Mg PO HS Plavix (Clopidogrel Bisulfate) 75 Mg Tab 75 Mg PO DAILY Reported Aspirin 81 Mg Chew 81 Mg CHEW DAILY Artificial Tears Opth Drops (Propylene Glycol-Glycerin Opth Drops) 1-0.3% Drops 1-2 Drop EACH EYE PRN PRN Zetia (Ezetimibe) 10 Mg Tab 10 Mg PO HS Pred Forte Opth 1% (Prednisolone Acetate Opth 1%) 1% Susp 1 Drop LEFT EYE BID Pantoprazole (Pantoprazole Sodium) 40 Mg Tab 40 Mg PO DAILY Novolin 70-30 Inj (Insulin Human Isoph/Insulin Regular) 1,000 Unit/10 Ml Vial 16 Units SQ BID Nitroglycerin SL (Nitroglycerin) 0.4 Mg Subl 0.4 Mg SL DIRECTED PRN ONE TABLET UNDER THE TONGUE NEEDED FOR CHEST PAIN, MAY REPEAT EVERY FIVE MINUTES FOR A TOTAL OF 3 DOSES OR CALL 911 IF NO RELIEF Lyrica (Pregabalin) 50 Mg Cap 50 Mg PO BID Isosorbide Mononitrate 20 Mg Tab 20 Mg PO BID Lortab (Hydrocodone-Acetaminophen) 5-325 Mg Tab 1-2 Tab PO Q4-6H PRN Glimepiride 2 Mg Tab 2 Mg PO BID Lasix (Furosemide) 40 Mg Tab 40 Mg PO DAILY Dorzolamide Opth Drops (Dorzolamide HCl) 2% Soln 1 Drop RIGHT EYE BID Carvedilol 6.25 Mg Tab 6.25 Mg PO BID K-Tab (Potassium Chloride) 10 Meq Tab 10 Meq PO BID Amlodipine (Amlodipine Besylate) 5 Mg Tab 5 Mg PO DAILY Review of Systems Except as stated in HPI: all other systems reviewed are Neg Cardiovascular: Positive: Chest Pain or Discomfort Physical Exam Narrative GENERAL: SKIN: Warm and dry. HEAD: Atraumatic. Normocephalic. EYES: Pupils equal and round. No scleral icterus. No injection or drainage. ENT: No nasal bleeding or discharge. Mucous membranes pink and moist. NECK: Trachea midline. No JVD. CARDIOVASCULAR: Regular rate and rhythm. RESPIRATORY: No accessory muscle use. Clear to auscultation. Breath sounds equal bilaterally. GASTROINTESTINAL: Abdomen soft, non-tender, nondistended. Hepatic and splenic margins not palpable. MUSCULOSKELETAL: Extremities without clubbing, cyanosis, or 2+ BLE edema. No obvious deformities. NEUROLOGICAL: Awake and alert. No obvious cranial nerve deficits. Motor grossly within normal limits. Five out of 5 muscle strength in the arms and legs. Normal speech. PSYCHIATRIC: Appropriate mood and affect; insight and judgment normal. Data Data Last Documented VS Vital Signs Date Time Temp Pulse Resp B/P Pulse Ox O2 Delivery O2 Flow Rate FiO2 10/06/16 06:08 69 16 142/65 97 Room Air 10/06/16 05:56 2 10/06/16 05:51 98.6 Orders Electrocardiogram (10/06/16 05:52) B-Type Natriuretic Peptide (10/06/16 05:52) Ckmb (Isoenzyme) Profile (10/06/16 05:52) Complete Blood Count With Diff (10/06/16 05:52) Comprehensive Metabolic Panel (10/06/16 05:52) Magnesium (Mg) (10/06/16 05:52) Prothrombin Time / Inr (Pt) (10/06/16 05:52) Act Partial Throm Time (Ptt) (10/06/16 05:52) Troponin I (10/06/16 05:52) Lipase (10/06/16 05:52) Chest, Single Ap (10/06/16 05:52) Ecg Monitoring (10/06/16 05:52) Bilateral Bp Monitoring (10/06/16 05:52) Iv Access Insert/Monitor (10/06/16 05:52) Oximetry (10/06/16 05:52) Oxygen Administration (10/06/16 05:52) Morphine Inj (Morphine Inj) (10/06/16 06:00) Nitroglycerin 2% Oint (Nitroglycerin 2% (10/06/16 06:00) Labs Laboratory Tests Test 10/06/16 05:56 White Blood Count 6.7 TH/MM3 Red Blood Count 2.87 MIL/MM3 Hemoglobin 8.2 GM/DL Hematocrit 25.4 % Mean Corpuscular Volume 88.6 FL Mean Corpuscular Hemoglobin 28.7 PG Mean Corpuscular Hemoglobin 32.4 % Concent Red Cell Distribution Width 14.9 % Platelet Count 168 TH/MM3 Mean Platelet Volume 9.7 FL Neutrophils (%) (Auto) 80.6 % Lymphocytes (%) (Auto) 9.1 % Monocytes (%) (Auto) 10.1 % Eosinophils (%) (Auto) 0.1 % Basophils (%) (Auto) 0.1 % Neutrophils # (Auto) 5.4 TH/MM3 Lymphocytes # (Auto) 0.6 TH/MM3 Monocytes # (Auto) 0.7 TH/MM3 Eosinophils # (Auto) 0.0 TH/MM3 Basophils # (Auto) 0.0 TH/MM3 CBC Comment DIFF FINAL Differential Comment Prothrombin Time 11.0 SEC Prothromb Time International 1.0 RATIO Ratio Activated Partial 27.3 SEC Thromboplast Time Sodium Level 142 MEQ/L Potassium Level 3.9 MEQ/L Chloride Level 108 MEQ/L Carbon Dioxide Level 27.8 MEQ/L Anion Gap 6 MEQ/L Blood Urea Nitrogen 29 MG/DL Creatinine 1.26 MG/DL Estimat Glomerular Filtration 40 ML/MIN Rate Random Glucose 210 MG/DL Calcium Level 8.1 MG/DL Magnesium Level 2.0 MG/DL Total Bilirubin 0.4 MG/DL Aspartate Amino Transf 7 U/L (AST/SGOT) Alanine Aminotransferase 16 U/L (ALT/SGPT) Alkaline Phosphatase 70 U/L Total Creatine Kinase 48 U/L Troponin I LESS THAN 0.02 NG/ML Total Protein 5.9 GM/DL Albumin 3.0 GM/DL Lipase 89 U/L MDM Medical Decision Making Medical Screen Exam Complete: Yes Emergency Medical Condition: Yes Medical Record Reviewed: Yes Interpretation(s) NSR 66, 1ST DEGREE AV BLOCK, NONSPEC STT CHANGES, NO STEMI PATTERN Differential Diagnosis OK/NONSTEMI V PE V PNA V PTX Narrative Course PATIENT HAS HIGH CARDIAC RISK FACTORS AND WILL RECC ADMIT Diagnosis Primary Impression: CHEST PAIN R/O OK Admitting Information Admitting Physician Requests: Observation Condition: Stable Jean Rojas MD Oct 06, 2016 05:57
[2016-10-06] MEDS ORDERED: MORPHINE SULFATE 4 MG/ML INJ IV PUSH ONE (06:00)
[2016-10-06] MEDS ORDERED: NITROGLYCERIN 2% OINT 1 GM PACKET TOP ONE (06:00)
[2016-10-06] MEDS ORDERED: ASPI81CH CHEW (06:04)
[2016-10-06] MEDS ORDERED: ARTIDRO EACH EYE (06:04)
[2016-10-06 06:17] LABS: AUTOMATED NEUTROPHIL # 5.4 TH/MM3 (1.8-7.7); BASOPHIL % 0.1 % (0.0-2.0); EOSINOPHIL % 0.1 % (0.0-4.0); HEMATOCRIT 25.4 % (35.0-46.0); HEMO FLAGS DIFF FINAL; LYMPH % 9.1 % (9.0-44.0); LYMPHOCYTE # 0.6 TH/MM3 (1.0-4.8); MEAN CELL VOLUME 88.6 FL (80.0-100.0); MEAN CORPUSCULAR HEMOGLOBIN 28.7 PG (27.0-34.0); MEAN CORPUSCULAR HGB CONC 32.4 % (32.0-36.0); MONO % 10.1 % (0.0-8.0); NEUT % 80.6 % (16.0-70.0); PLATELET COUNT 168 TH/MM3 (150-450); RED BLOOD COUNT 2.87 MIL/MM3 (4.00-5.30); RED CELL DISTRIBUTION WIDTH 14.9 % (11.6-17.2); WHITE BLOOD COUNT 6.7 TH/MM3 (4.0-11.0)
[2016-10-06 06:27] LABS: APTT (PATIENT) 27.3 SEC (24.3-30.1)
[2016-10-06 06:38] LABS: ANION GAP 6 MEQ/L (5-15); AST (GOT) 7 U/L (15-37); BICARBONATE 27.8 MEQ/L (21.0-32.0); BLOOD UREA NITROGEN 29 MG/DL (7-18); CHLORIDE 108 MEQ/L (98-107); GLOMERULAR FILTRATION RATE 40 ML/MIN (>89); POTASSIUM 3.9 MEQ/L (3.5-5.1); SODIUM (NA) 142 MEQ/L (136-145)
[2016-10-06 06:39] LABS: ALT (GPT) 16 U/L (10-53)
[2016-10-06 06:42] LABS: ALKALINE PHOSPHATASE 70 U/L (45-117); TOTAL BILIRUBIN ADULT 0.4 MG/DL (0.2-1.0)
[2016-10-06 06:57] LABS: CREATINE KINASE 48 U/L (26-192)
--- NOTE | 2016-10-06 07:07 | RADRPT ---
EXAM DATE/TIME: 10/06/2016 06:12 [facility] COMPARISON: CHEST SINGLE AP, August 07, 2016, 14:10. INDICATIONS : Chest pain, cough starting today MEDICAL HISTORY : Cardiovascular disease. Hypertension. Carcinoma, bladder SURGICAL HISTORY : CABG. ENCOUNTER: Initial ACUITY: 1 day PAIN SCORE: 5/10 LOCATION: Bilateral chest FINDINGS: Patchy infiltrates in the perihilar and infrahilar region bilaterally. Both hemidiaphragms are disce rnible. The heart is normal in size. Evidence of prior median sternotomy. CONCLUSION: Patchy bilateral infiltrates in the central and lower lungs. Silvestre Johnston MD on October 06, 2016 at 7:05 Board Certified Radiologist. This report was verified electronically.
[2016-10-06] MEDS ORDERED: ACETAMINOPHEN 325 MG TAB PO PRN (07:45)
[2016-10-06] MEDS ORDERED: MAGNESIUM HYDROXIDE SUSP 30 ML CUP PO PRN (07:45)
[2016-10-06] MEDS ORDERED: BISACODYL 10 MG SUPP RECTAL PRN (07:45)
[2016-10-06] MEDS ORDERED: LACTULOSE SYRUP 20 GM/30 ML CUP PO PRN (07:45)
[2016-10-06] MEDS ORDERED: NALOXONE HCL 0.4 MG/ML AMP IV PRN (07:45)
[2016-10-06] MEDS ORDERED: SODIUM CHLORIDE 0.9% FLUSH 10 ML FLUSH IV FLUSH PRN (07:45)
[2016-10-06] MEDS ORDERED: SENNOSIDES 8.6 MG TAB PO PRN (07:45)
--- NOTE | 2016-10-06 07:47 | EKG ---
Date Performed: 10/06/2016 Time Performed: 05:59:08 PTAGE: 89 years EKG: Sinus rhythm WITH FIRST DEGREE AV BLOCK NONSPECIFIC T-WAVE ABNORMALITY ABNORMAL ECG PREVIOUS TRACING : 08/07/2016 13.46 DOCTOR: Pranav Hoffmann Interpretating Date/Time 10/06/2016 07:46:11
[2016-10-06] MEDS ORDERED: DEXTROSE 50% IN WATER 50 ML VIAL(D50) IV PRN (08:45)
[2016-10-06] MEDS ORDERED: GLUCAGON 1 MG/ML VIAL OTHER PRN (08:45)
--- NOTE | 2016-10-06 08:47 | HHI.HP ---
HPI Service [facility] Primary Care Physician Basil Bowens MD Admission Diagnosis CP R/O RI Diagnoses: Chief Complaint: chest pain Travel History International Travel<30 Days: No Contact w/Intl Traveler <30 Da: No Traveled to Known Affected Are: No History of Present Illness This is a pleasant 89-year-old elderly white female with significant past medical history CAD, CABG, myocardial infarction, type 2 diabetes, hypertension , hyperlipidemia, bladder cancer. Patient presented to the emergency room complaining of chest discomfort. Patient endorses that she has not felt well since Monday, she went to see her primary care physician who recommended she come to the emergency room but she declined. Yesterday morning, she had some left hand pain that then moved to the left shoulder, she didn't think much of it and thought it was her arthritis flaring up. Later in the day, she made some chili and after dinner she did dishes. Sometime around 11 AM she started to feel midsternal pressure, she fell sick to her stomach and started to vomit. She had associated shortness of breath and headache. She took a nitroglycerin which helped a little and then repeated a second dose 15 minutes later and then decided to come to the emergency room. Over the last couple nights, she's had subjective fevers, she's had night sweats and has noted increased coughing with no sputum. She's had some mild dysuria. She did have loose stools approximately 2 days ago but that has now resolved. Appetite has been okay. In the emergency room, patient was evaluated. Troponin negative. EKG did not show any ST segment elevation. No white blood count elevation. No fever. CBC is remarkable for anemia, hemoglobin 8.2, hematocrit 25.4. Denies any blood in the stool. She does have chronic kidney disease, creatinine appears to be at baseline. Random glucose was 210. Chest x-ray was for bilateral patchy infiltrates. Last Impressions Chest X-Ray 10/06/16 0552 Signed Impressions: Service Date/Time: , October 06, 2016 06:12 - CONCLUSION: Patchy bilateral infiltrates in the central and lower lungs. Silvestre Johnston MD She was given morphine and nitroglycerin in the emergency room. At this time she remains chest pain-free. She does have a dry cough, nonproductive. She's noted with a bruise to the left shoulder blade. Patient indicates that approximately 2-3 weeks ago she had a hypoglycemic episode and passed out in the bathroom and fell and hit the back of her head. Indicates this has happened before that as well. Patient is on Amaryl. Indicates that she doesn' t check her blood sugars as often throughout the day. Patient is admitted for further evaluation and treatment. Review of Systems Constitutional: COMPLAINS OF: Fever (subjective ), Night Sweats, DENIES: Diaphoretic episodes, Fatigue, Weight gain, Weight loss, Chills, Dizziness, Change in appetite Eyes: DENIES: Blurred vision, Diplopia, Eye inflammation, Eye pain, Vision loss , Photosensitivity, Double Vision Ears, nose, mouth, throat: DENIES: Tinnitus, Hearing loss, Vertigo, Nasal discharge, Oral lesions, Throat pain, Hoarseness, Ear Pain, Running Nose, Epistaxis, Sinus Pain, Toothache, Odynophagia Respiratory: COMPLAINS OF: Cough, DENIES: Apneas, Snoring, Wheezing, Hemoptysis, Sputum production, Shortness of breath Cardiovascular: COMPLAINS OF: Chest pain, DENIES: Palpitations, Syncope, Dyspnea on Exertion, PND, Lower Extremity Edema, Orthopnea, Claudication Gastrointestinal: COMPLAINS OF: Nausea, Vomiting, DENIES: Abdominal pain, Black stools, Bloody stools, Constipation, Diarrhea, Difficulty Swallowing, Anorexia Genitourinary: DENIES: Abnormal vaginal bleeding, Dysmenorrhea, Dyspareunia, Sexual dysfunction, Urinary frequency, Urinary incontinence, Urgency, Hematuria , Dysuria, Nocturia, Vaginal discharge Musculoskeletal: DENIES: Joint pain, Muscle aches, Stiffness, Joint Swelling, Back pain, Neck pain Integumentary: DENIES: Abnormal pigmentation, Pruritus, Rash, Nail changes, Breast masses, Breast skin changes, Nipple discharge Hematologic/lymphatic: DENIES: Bruising, Lymphadenopathy Immunologic/allergic: DENIES: Eczema, Urticaria Neurologic: DENIES: Abnormal gait, Headache, Localized weakness, Paresthesias, Seizures, Speech Problems, Tremor, Poor Balance Psychiatric: DENIES: Anxiety, Confusion, Mood changes, Depression, Hallucinations, Agitation, Suicidal Ideation, Homicidal Ideation, Delusions Past Family Social History Past Medical History Coronary disease Hearing loss Left-sided retinal detachment Bilateral cataract Lower extremity neuropathy Dizziness Syncope Myocardial infarction Heart failure Hyperlipidemia Irregular heart, the exact nature of which is not clear Hypertension Reflux Hiatal hernia Bladder cancer Chronic kidney disease Osteoarthritis Diabetes Anxiety Past Surgical History Bilateral cataract surgery with lens implant Coronary bypass surgery in 1981 and in 1989 Hysterectomy Reported Medications Reported Meds & Active Scripts Active Requip (Ropinirole) 1 Mg Tab 1 Mg PO HS Plavix (Clopidogrel Bisulfate) 75 Mg Tab 75 Mg PO DAILY Reported Aspirin 81 Mg Chew 81 Mg CHEW DAILY Artificial Tears Opth Drops (Propylene Glycol-Glycerin Opth Drops) 1-0.3% Drops 1-2 Drop EACH EYE PRN PRN Zetia (Ezetimibe) 10 Mg Tab 10 Mg PO HS Pred Forte Opth 1% (Prednisolone Acetate Opth 1%) 1% Susp 1 Drop LEFT EYE BID Pantoprazole (Pantoprazole Sodium) 40 Mg Tab 40 Mg PO DAILY Novolin 70-30 Inj (Insulin Human Isoph/Insulin Regular) 1,000 Unit/10 Ml Vial 16 Units SQ BID Nitroglycerin SL (Nitroglycerin) 0.4 Mg Subl 0.4 Mg SL DIRECTED PRN ONE TABLET UNDER THE TONGUE NEEDED FOR CHEST PAIN, MAY REPEAT EVERY FIVE MINUTES FOR A TOTAL OF 3 DOSES OR CALL 911 IF NO RELIEF Lyrica (Pregabalin) 50 Mg Cap 50 Mg PO BID Isosorbide Mononitrate 20 Mg Tab 20 Mg PO BID Lortab (Hydrocodone-Acetaminophen) 5-325 Mg Tab 1-2 Tab PO Q4-6H PRN Glimepiride 2 Mg Tab 2 Mg PO BID Lasix (Furosemide) 40 Mg Tab 40 Mg PO DAILY Dorzolamide Opth Drops (Dorzolamide HCl) 2% Soln 1 Drop RIGHT EYE BID Carvedilol 6.25 Mg Tab 6.25 Mg PO BID K-Tab (Potassium Chloride) 10 Meq Tab 10 Meq PO BID Amlodipine (Amlodipine Besylate) 5 Mg Tab 5 Mg PO DAILY Allergies: Coded Allergies: Penicillin (Verified Allergy, Severe, SEVERE ITCHING, 10/06/16) Active Ordered Medications Inpatient Medications Acetaminophen (Tylenol) 650 mg Q4H PRN PO TEMP > 100.4; Start 10/06/16 at 07:45 Azithromycin/ Sodium Chloride (Zithromax Inj/ NS 250 ml Inj) 250 ml @ 250 mls/ hr Q24H IV ; Start 10/06/16 at 08:45; Status UNV Bisacodyl (Dulcolax Supp) 10 mg DAILY PRN RECTAL SEVERE CONSITIPATION; Start at 07:45 Dextrose (D50w (Vial) Inj) 50 ml UNSCH PRN IV HYPOGLYCEMIA-SEE COMMENTS; Start 10/06/16 at 08:45; Status UNV Glucagon (Glucagon Inj) 1 mg UNSCH PRN OTHER HYPOGLYCEMIA-SEE COMMENTS; Start 10/06/16 at 08:45; Status UNV Insulin Aspart (NovoLOG SUPPLEMENTAL SCALE) 1 ACHS SLIDING SCALE SQ ; Start at 11:00; Status UNV Lactulose 30 ml 30 ml DAILY PRN PO SEVERE CONSITIPATION; Start 10/06/16 at 07: 45 Magnesium Hydroxide (Milk Of Magnesia Liq) 30 ml Q12H PRN PO MILD - MODERATE CONSTIPATION; Start 10/06/16 at 07:45 Morphine Sulfate (Morphine Inj) 2 mg ONCE ONCE IV PUSH Last administered on 06:08; Start 10/06/16 at 06:00; Stop 10/06/16 at 06:01; Status DC Naloxone HCl (Narcan Inj) 0.4 mg UNSCH PRN IV SEE LABEL COMMENTS; Start at 07:45 Nitroglycerin (Nitroglycerin 2% Oint) 1 inch ONCE ONCE TOP Last administered on 10/06/16 06:08; Start 10/06/16 at 06:00; Stop 10/06/16 at 06:01; Status DC Ondansetron HCl (Zofran Inj) 4 mg Q6H PRN IVP NAUSEA OR VOMITING; Start at 07:45 Senna/Docusate Sodium (Keyona-Colace) 1 tab BID PO ; Start 10/06/16 at 09:00 Sennosides (Senokot) 17.2 mg Q12H PRN PO MODERATE - SEVERE CONSTIPATION; Start 10/06/16 at 07:45 Sodium Chloride (NS Flush) 2 ml BID IV FLUSH ; Start 10/06/16 at 09:00 Family History Reviewed, non contributory Social History Lives with son, no smoking, no ETOH, no substance abuse. Physical Exam Vital Signs Vital Signs Date Time Temp Pulse Resp B/P Pulse Ox O2 Delivery O2 Flow Rate FiO2 10/06/16 08:10 56 20 152/65 10/06/16 06:08 69 16 142/65 97 Room Air 10/06/16 05:56 22 96 Nasal Cannula 2 10/06/16 05:56 96 Nasal Cannula 2 10/06/16 05:56 139/63 133/70 10/06/16 05:53 71 16 98 Nasal Cannula 2 10/06/16 05:51 98.6 71 21 139/63 Physical Exam GENERAL: This is a well-nourished, well-developed patient, in no apparent distress. SKIN: bruises to left arm, shoulder blade. skin cool and dry. HEAD: Atraumatic. Normocephalic. No temporal or scalp tenderness. 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 Right pupil reactive. No scleral icterus. No injection or drainage. ENT: Nose without bleeding, purulent drainage or septal hematoma. Throat without erythema, tonsillar hypertrophy or exudate. Uvula midline. Airway patent. NECK: Trachea midline. No JVD or lymphadenopathy. Supple, nontender, no meningeal signs. CARDIOVASCULAR: Regular rate and rhythm without murmurs, gallops, or rubs. RESPIRATORY: Clear to auscultation. Breath sounds equal bilaterally. No wheezes , rales, or rhonchi. GASTROINTESTINAL: Abdomen soft, non-tender, nondistended. No hepato-splenomegaly , or palpable masses. No guarding. MUSCULOSKELETAL: Extremities without clubbing, cyanosis, or edema. No joint tenderness, effusion, or edema noted. No calf tenderness. Negative Homans sign bilaterally. NEUROLOGICAL: Awake, oriented x 4. No focal deficits. Laboratory Laboratory Tests Test 10/06/16 05:56 White Blood Count 6.7 Red Blood Count 2.87 Hemoglobin 8.2 Hematocrit 25.4 Mean Corpuscular Volume 88.6 Mean Corpuscular Hemoglobin 28.7 Mean Corpuscular Hemoglobin 32.4 Concent Red Cell Distribution Width 14.9 Platelet Count 168 Mean Platelet Volume 9.7 Neutrophils (%) (Auto) 80.6 Lymphocytes (%) (Auto) 9.1 Monocytes (%) (Auto) 10.1 Eosinophils (%) (Auto) 0.1 Basophils (%) (Auto) 0.1 Neutrophils # (Auto) 5.4 Lymphocytes # (Auto) 0.6 Monocytes # (Auto) 0.7 Eosinophils # (Auto) 0.0 Basophils # (Auto) 0.0 CBC Comment DIFF FINAL Differential Comment Prothrombin Time 11.0 Prothromb Time International 1.0 Ratio Activated Partial 27.3 Thromboplast Time Sodium Level 142 Potassium Level 3.9 Chloride Level 108 Carbon Dioxide Level 27.8 Anion Gap 6 Blood Urea Nitrogen 29 Creatinine 1.26 Estimat Glomerular Filtration 40 Rate Random Glucose 210 Calcium Level 8.1 Magnesium Level 2.0 Total Bilirubin 0.4 Aspartate Amino Transf 7 (AST/SGOT) Alanine Aminotransferase 16 (ALT/SGPT) Alkaline Phosphatase 70 Total Creatine Kinase 48 Troponin I LESS THAN 0.02 Total Protein 5.9 Albumin 3.0 Lipase 89 Result Diagram: 10/06/16 0556 10/06/1656 Imaging Last Impressions Chest X-Ray 10/06/1652 Signed Impressions: Service Date/Time: , October 06, 2016 06:12 - CONCLUSION: Patchy bilateral infiltrates in the central and lower lungs. Silvestre Johnston MD Assessment and Plan Problem List: (1) Chest pain (2) Pneumonia (3) Diabetes (4) CAD (coronary artery disease) (5) GERD (gastroesophageal reflux disease) (6) Hyperlipidemia (7) Hypertension (8) Hx of CABG (9) Restless leg syndrome Assessment and Plan Admit to Dr. Reyna 89-year-old female with history of coronary artery disease, myocardial infarction, CABG. Presented to the emergency room with complaint of chest discomfort, shortness of breath, nausea, vomiting, headache. Has had a cough, subjective fever and diaphoresis. Chest pain, rule out acute coronary syndrome. Continue with serial troponin Consul Dr. Morataya for evaluation Continue Plavix, carvedilol, Imdur, aspirin Possible pneumonia, chest x-ray with bilateral infiltrates. Has had a cough, subjective fever, chills. We will start Zithromax 500 mg IV daily, patient is allergic to penicillin. Anemia, noted with drop in hemoglobin, hemoglobin 8.2, hematocrit 25.4 Iron studies Stools for occult blood -Continue monitor CBC Insulin-dependent diabetes, with reported episode of hypoglycemia -Accu-Cheks before meals and at bedtime with insulin therapy as needed We will hold insulin 70/30 at this time, hold glimepiride Hypertension, stable Continue home medications Hyperlipidemia, stable Continue with statins CK D, stage III We will hydrate cautiously Monitor renal function Home medications reviewed, initiated as indicated SCDs for DVT prophylaxis Plan of care has been discussed with the patient, attending and registered nurse. Further management of the patient will be dependent on the hospital course This patient is seen by myself and Dr. Reyna, this H&P is written on his behalf Problem Qualifiers (1) Chest pain: Qualified Code: R07.9 - Chest pain, unspecified type (2) Pneumonia: Qualified Code: J18.9 - Pneumonia of both lower lobes due to infectious organism (3) Diabetes: (4) CAD (coronary artery disease): Qualified Code: I25.118 - Coronary artery disease of [place] artery of [place] heart with stable angina pectoris (5) GERD (gastroesophageal reflux disease): Qualified Code: K21.9 - Gastroesophageal reflux disease, esophagitis presence not specified (6) Hyperlipidemia: Qualified Code: E78.5 - Hyperlipidemia, unspecified hyperlipidemia type (7) Hypertension: Qualified Code: I10 - Essential hypertension Charlotte Samayoa Oct 06, 2016 08:47
[2016-10-06] MEDS ORDERED: GLIMEPIRIDE 2 MG TAB PO SCH (09:00)
[2016-10-06] MEDS ORDERED: SODIUM CHLOR 0.9% 1000 ML INJ 1,000 ML IV SCH (09:30)
[2016-10-06] MEDS: INSULIN ASPART SUPPLEMENTAL SCALE SQ SCH ×3 (10:38→21:23)
[2016-10-06] MEDS: amLODIPine BESYLATE 5 MG TAB PO SCH (10:39)
[2016-10-06] MEDS: CLOPIDOGREL 75 MG TAB PO SCH (10:40)
[2016-10-06] MEDS: DOCUSATE SODIUM 50 MG/SENNA 8.6 MG TAB PO SCH ×2 (10:40→21:17)
[2016-10-06] MEDS: ASPIRIN 81 MG CHEW TAB CHEW SCH (10:40)
[2016-10-06] MEDS: FUROSEMIDE 40 MG TAB PO SCH (10:40)
[2016-10-06] MEDS: ISOSORBIDE MONONITRATE 20 MG TAB PO SCH ×2 (10:41→21:15)
[2016-10-06] MEDS: CARVEDILOL 6.25 MG TAB PO SCH ×2 (10:41→21:00)
[2016-10-06] MEDS: PANTOPRAZOLE SOD 40 MG DELAYED RELEASE TAB PO SCH (10:41)
[2016-10-06] MEDS: POTASSIUM CHLORIDE 10 MEQ CONTROLLED RELEASE TAB PO SCH ×2 (10:41→21:16)
[2016-10-06] MEDS: AZITHROMYCIN INJ 500 MG in SODIUM CHLOR 0.9% 250 ML INJ 250 ML IV SCH (10:43)
[2016-10-06] MEDS: DORZOLAMIDE 2% OPTH SOLN 200 DROP/10 ML BTLO RIGHT EYE SCH ×2 (10:44→21:13)
[2016-10-06] MEDS: SODIUM CHLORIDE 0.9% FLUSH 10 ML FLUSH IV FLUSH SCH ×2 (10:44→21:18)
[2016-10-06] MEDS: prednisoLONE ACETATE 1% OPHT SUSP 5 ML BTL LEFT EYE SCH ×2 (10:44→21:14)
[2016-10-06] MEDS ORDERED: INSULIN ASPART SUPPLEMENTAL SCALE SQ SCH (11:00)
--- NOTE | 2016-10-06 11:16 | MB ---
cc: ISRRAEL MACKENZIE DO DATE OF CONSULTATION 10/06/2016 REASON FOR CONSULTATION Chest pain HISTORY OF PRESENT ILLNESS Elena Wilkes is a pleasant 89-year-old female who presented to [facility] emergency room on October 06, 2016 due to chest pain. She states that this chest pain has been similar to the multiple times that she has been in specifically in July. She started not feeling well on MondayOctober 03 and went and saw her primary care physician who recommended that she come to the emergency room, but she decided not to. She then woke up yesterday morning and noticed some left hand pain which she associated with her joints. She did also have some left shoulder pain. As she was massaging her hand, she could feel the muscle in her hand hurt more than usual. Later in the day, she decided to make dinner, ate some chili, and then laid down to sleep. She started noticing some nausea and some midsternal pressure and started to vomit. She ended up taking a nitroglycerin which did help somewhat. She has also noticed some subjective fevers and night sweats with increased coughing but no sputum. She also started having diarrhea two days ago which still bothered her last night. On arrival to the emergency room, chest pain was gone. In seeing her, she is currently chest pain free. Palpation of the anterior chest wall does reproduce the pain that she has had which she also associates is similar to when she was here in July. PAST MEDICAL HISTORY 1. Coronary artery disease 2. Atrial fibrillation 3. Hearing loss 4. Left sided retinal detachment 5. Bilateral cataracts 6. Lower extremity neuropathy 7. History of syncope. 8. Heart is history congestive heart failure with last known ejection fraction of 55-60% (March 28, 2016) 9. Hyperlipidemia 10. Hypertension 11. Gastroesophageal reflux disease 12. Hiatal hernia 13. Bladder cancer 14. Chronic kidney disease 15. Osteoarthritis 16. Diabetes 17. Anxiety PAST SURGICAL HISTORY 1. Coronary artery bypass grafting (1981, redo in 1989) 2. Bilateral cataract surgery with lens implant 3. Hysterectomy ALLERGIES PENICILLIN MEDICATIONS 1. Aspirin 81 mg daily 2. Plavix 75 mg daily 3. Lyrica 50 mg b.i.d. 4. Coreg 6.25 mg b.i.d. 5. Dorzolamide ophthalmic one drop right eye b.i.d. 6. Zetia 10 mg every night 7. Norvasc 5 mg daily 8. Requip 1 mg every night 9. Novolin 70/30 60 units b.i.d. 10. Lasix 40 mg daily 11. Isosorbide mononitrate 20 mg b.i.d. 12. Nitro sublingual every 4 hours as needed for chest pain. 13. Lortab 1-2 tablets every 4-6 hours as needed for pain 14. Protonix 40 mg daily 15. Potassium chloride 10 mEq b.i.d. 16. Glimepiride 2 mg b.i.d. FAMILY HISTORY Denies premature coronary artery disease or sudden cardiac within the family. SOCIAL HISTORY The patient lives with her son. Denies tobacco, alcohol or drug abuse. REVIEW OF SYSTEMS 14-systems were reviewed including osteopathic pertinent positives and negatives as above, otherwise negative. PHYSICAL EXAMINATION VITAL SIGNS: Temperature 97.8, heart rate 60, blood pressure 136/60, respirations 16, pulse ox 99% on two liters. GENERAL: In general, the patient appears well in acute disstress, alert awake and oriented x3. HEAD, EYES, EARS, NOSE, AND THROAT: Extraocular muscles intact. Mucous membranes moist. NECK: Supple. No JVD at 45 degrees. No carotid bruits heard bilaterally. Carotid upstroke is brisk in nature. HEART: Regular rate and rhythm. Positive first and second heart sounds with a 1/6 holosystolic murmur noted at the apex. The anterior chest wall has two previous scars from coronary artery bypass grafting. LUNGS: Decreased breath sounds bilaterally with minimal rhonchi, but no wheezes or rales. ABDOMEN: Soft, nontender and nondistended. No organomegaly noted. EXTREMITIES: Show no clubbing, cyanosis or edema. Femoral and distal pulses intact bilaterally. NEUROLOGIC: No focal deficits. SKIN: Warm, dry and intact. OSTEOPATHICALLY: No kyphoscoliosis, lordosis or paraspinal tender points. LABORATORY FINDINGS Hemoglobin 8.2, hematocrit 25.4, platelets 168. Potassium 3.9, BUN 29, creatinine 1.26, troponin 0.02. Electrocardiogram (October 06, 2016 at 0559) sinus rhythm with first degree AV block, nonspecific ST-T wave changes. No significant change from August 07, 2016. IMPRESSION 1. Atypical chest pain 2. Bilateral patchy infiltrates most likely due to pneumonia on chest x-ray 3. Diabetes mellitus 4. History of coronary artery disease with two previous coronary artery bypass grafting. 5. Gastroesophageal reflux disease 6. Hyperlipidemia 7. Hypertension 8. Restless leg syndrome 9. Anemia RECOMMENDATIONS 1. Mrs. Wilkes appears to have chest pain similar to her previous episodes, although this one was somewhat more concerning for angina even though her pain is somewhat reproducible on palpation of her anterior chest wall. I had a long discussion with her and considering ischemic evaluation including a stress test, she feels that she would not want to undergo cardiac catheterization due to her age and other comorbidities which is understandable. In light of that, we will continue medical management for her coronary artery disease and would not recommend stress testing. 2. As far as her atrial fibrillation goes, it appears that she is currently in normal sinus rhythm. She has previously been evaluated and had hematuria while on Eliquis so further anticoagulation will be avoided at this time. She also notes that she had a recent fall hitting the back of her head was in the past two weeks. 3. She should continue on nitro sublingual as needed. 4. As far as this episode goes, it is hard to determine whether this was truly coronary in nature as she does have pain with palpation of her anterior chest wall. We will continue with her medical management, I would not increase her Coreg at this time due to her heart rate being borderline 60s. She can continue on her Isosorbide mononitrate as well as her Norvasc for further anti-anginal medications. For now as she has only had one episode recently we will hold off on changing her medications at this time. Thank you for allowing me to see Elena Wilkes. If there are any questions, please do not hesitate to call. s at this time. Isrrael Mackenzie DO VGP/DJL /10:33 AM /11:06 AM
[2016-10-06 12:26] LABS: RETIC % 1.1 % (0.4-3.0); REVIEW FLAG FINAL
--- NOTE | 2016-10-06 14:02 | EKG ---
Date Performed: 10/06/2016 Time Performed: 12:33:21 PTAGE: 89 years EKG: BASELINE ARTIFACT PRESENT. SINUS BRADYCARDIA WITH FIRST DEGREE AV BLOCK NONSPECIFIC T-WAVE ABNORMALITY ABNORMAL ECG NO SIGNIFICANT CHANGE FROM PRIOR ELECTROCARDIOGRAM. PREVIOUS TRACING : 10/06/2016 05.59 DOCTOR: Erick Palomino Interpretating Date/Time 10/06/2016 14:01:13
[2016-10-06 15:22] LABS: CREATINE KINASE 35 U/L (26-192)
[2016-10-06] MEDS: EZETIMIBE 10 MG TAB PO SCH (21:16)
[2016-10-06 21:40] LABS: TRANSFERRIN IRON PROFILE 183 MG/DL (200-360)
[2016-10-06 22:05] LABS: FERRITIN 20 NG/ML (8-252)
[2016-10-06 22:08] LABS: CREATINE KINASE 40 U/L (26-192)
[2016-10-07 00:15] VITALS: BP 131/53; PULSE 55; RESP 18; TEMP 97.7; O2SAT 93
[2016-10-07 04:00] VITALS: BP 128/56; PULSE 51; RESP 18; TEMP 97.7; O2SAT 93
[2016-10-07] MEDS: ONDANSETRON HCL 4 MG/2 ML VIAL IVP PRN (05:02)
[2016-10-07] MEDS: INSULIN ASPART SUPPLEMENTAL SCALE SQ SCH ×2 (06:06→12:20)
[2016-10-07 08:00] VITALS: BP 141/61; PULSE 54; RESP 18; TEMP 97.4; O2SAT 94
[2016-10-07 09:24] LABS: AUTOMATED NEUTROPHIL # 2.4 TH/MM3 (1.8-7.7); BASOPHIL % 0.3 % (0.0-2.0); EOSINOPHIL % 0.2 % (0.0-4.0); HEMATOCRIT 24.6 % (35.0-46.0); HEMO FLAGS DIFF FINAL; LYMPH % 19.4 % (9.0-44.0); LYMPHOCYTE # 0.7 TH/MM3 (1.0-4.8); MEAN CELL VOLUME 87.8 FL (80.0-100.0); MEAN CORPUSCULAR HEMOGLOBIN 29.2 PG (27.0-34.0); MEAN CORPUSCULAR HGB CONC 33.3 % (32.0-36.0); MONO % 11.5 % (0.0-8.0); NEUT % 68.6 % (16.0-70.0); PLATELET COUNT 164 TH/MM3 (150-450); RED CELL DISTRIBUTION WIDTH 15.2 % (11.6-17.2); WHITE BLOOD COUNT 3.5 TH/MM3 (4.0-11.0)
[2016-10-07] MEDS: amLODIPine BESYLATE 5 MG TAB PO SCH (09:38)
[2016-10-07] MEDS: CARVEDILOL 6.25 MG TAB PO SCH ×2 (09:38→20:29)
[2016-10-07] MEDS: PANTOPRAZOLE SOD 40 MG DELAYED RELEASE TAB PO SCH (09:38)
[2016-10-07] MEDS: ISOSORBIDE MONONITRATE 20 MG TAB PO SCH ×2 (09:38→20:29)
[2016-10-07] MEDS: SODIUM CHLORIDE 0.9% FLUSH 10 ML FLUSH IV FLUSH SCH ×2 (09:38→20:28)
[2016-10-07] MEDS: ASPIRIN 81 MG CHEW TAB CHEW SCH (09:38)
[2016-10-07] MEDS: POTASSIUM CHLORIDE 10 MEQ CONTROLLED RELEASE TAB PO SCH ×2 (09:38→20:29)
[2016-10-07] MEDS: FUROSEMIDE 40 MG TAB PO SCH (09:38)
[2016-10-07] MEDS: AZITHROMYCIN INJ 500 MG in SODIUM CHLOR 0.9% 250 ML INJ 250 ML IV SCH (09:38)
[2016-10-07] MEDS: DOCUSATE SODIUM 50 MG/SENNA 8.6 MG TAB PO SCH ×2 (09:39→20:29)
[2016-10-07] MEDS: CLOPIDOGREL 75 MG TAB PO SCH (09:39)
[2016-10-07] MEDS: prednisoLONE ACETATE 1% OPHT SUSP 5 ML BTL LEFT EYE SCH ×2 (09:40→20:29)
[2016-10-07] MEDS: DORZOLAMIDE 2% OPTH SOLN 200 DROP/10 ML BTLO RIGHT EYE SCH ×2 (09:40→20:29)
[2016-10-07 09:53] LABS: BICARBONATE 27.4 MEQ/L (21.0-32.0)
[2016-10-07 12:00] VITALS: BP 120/60; PULSE 53; RESP 18; TEMP 97.6; O2SAT 94
--- NOTE | 2016-10-07 12:41 | HHI.PR ---
Subjective Remarks Resting in bed No chest pain at rest, but atypical chest pain with cough Afebrile Alert Hard of hearing (Halie Lorenz) Objective Objective Results - Vital Signs Date Time Temp Pulse Resp B/P Pulse Ox O2 Delivery O2 Flow Rate FiO2 10/07/16 08:00 97.4 54 18 141/61 94 10/07/16 04:00 97.7 51 18 128/56 93 10/07/16 00:15 97.7 55 18 131/53 93 10/06/16 23:25 98.0 53 18 115/50 97 10/06/16 19:22 98.0 54 18 120/53 97 10/06/16 15:29 97.6 52 16 118/52 99 I/O 10/06/16 10/06/16 10/06/16 10/07/16 10/07/16 10/07/16 07:00 15:00 23:00 07:00 15:00 23:00 Intake Total 300 ml Balance 300 ml Intake IV Total 300 ml (Halie Lorenz) Result Diagram: 10/07/16 0657 10/07/16 0657 ROS General: Fatigue, Weakness (mild improving), Other (12 point ROS done positives noted) Cardiac: Chest Pain (atypical with cough) Pulmonary: Cough, SOB (exertional) GI: BM (needs bowel regimen no BM 2 days), N/V (no emesis) Neuro/MS: Other (debility needs walker in room) (Halie Lorenz) Physical Exam Physical Exam PHYSICAL EXAMINATION GENERAL: This is an elderly female who appears to be in no acute distress. She is alert and awake, [place] HEAD: Normocephalic Facial features appear symmetric. OROPHARYNGEAL: Oropharynx moist, clear NECK: Supple. Trachea midline without deviation. CARDIAC: Regular rhythm, regular rate, S1 and S2 are heard LUNGS: Decreased to auscultation bilaterally bilateral bases. Some coarse rhonchi especially with cough ABDOMEN: Soft, nontender, Bowel sounds are heard in all four quadrants. No rebound. No guarding. EXTREMITIES: no edema. Pulses intact NEUROLOGICAL: Patient mood and affect appropriate. No focal deficit SKIN:Warm and moist (Halie Lorenz) A/P Assessment and Plan (1) Chest pain (2) Pneumonia (3) Diabetes (4) CAD (coronary artery disease) (5) GERD (gastroesophageal reflux disease) (6) Hyperlipidemia (7) Hypertension (8) Hx of CABG (9) Restless leg syndrome Vital signs reviewed, mild bradycardia heart rate 54 and trends in the 50s. Patient is on Coreg, meds have been eval per cardiology Labs reviewed, anemia stable at 8.2, continues with acute kidney injury mild. Debility, she uses walker at home, states staff is gone to get her one to bring in the room. Lyrica used twice a day, will review with Dr. Maribell rosales continue med Chest pain, rule out acute coronary syndrome. Appreciate consult and follow-up per cardiology Unsure whether this pain is cardiac in nature, today pain is atypical patient states only chest pain with cough or movement. Continue medical management for now and monitoring patient's bradycardia with any change in her meds. Maintain Coreg at same dose Possible pneumonia, chest x-ray with bilateral infiltrates. Patient still has cough and states she coughs up some sputum, unknown color We will start Zithromax 500 mg IV daily, patient is allergic to penicillin. Duo nebs Anemia, noted with drop in hemoglobin, hemoglobin 8.2, unchanged with this a.m. lab. Medical management and monitor her symptoms especially when getting up out of bed. She denies any dizziness Insulin-dependent diabetes, with reported episode of hypoglycemia -Accu-Cheks before meals and at bedtime with insulin therapy as needed We will hold insulin 70/30 at this time, restarted glimepiride and increased sliding scale. If patient continues to require insulin will restart her 70/30 Hypertension, stable Continue home medications Hyperlipidemia, stable Continue with statins CK D, stage III We will hydrate cautiously Monitor renal function Bowel regimen, patient states no BM in 2 days. Will give mild laxative this p.m. and monitor SCDs for DVT prophylaxis Discussed with nurse Discussed with patient, who is very hard of hearing Discussed with Dr. Reyna, seen on his behalf (Halie Lorenz) Assessment and Plan Patient seen and examined as above [id number] time spent with patient Labs reviewed Discussed with RN Discussed with patient Plan of care discussed with RESEARCH STATISTICIAN (Wanda Reyna MD) Halie Lorenz Oct 07, 2016 12:41 Wanda Reyna MD Oct 07, 2016 16:04
--- NOTE | 2016-10-07 13:17 | PD.CARD.PN ---
Subjective Subjective Remarks No events over night, does not cough and chest pain with coughing Objective Medications Current Medications Medications (Trade) Dose Ordered Sig/Jose G Route Start Time Stop Time Status Last Admin (NS Flush) 2 ml UNSCH PRN IV FLUSH 10/06/16 07:45 10/07/16 05:02 (NS Flush) 2 ml BID IV FLUSH 10/06/16 09:00 10/07/16 09:38 (Tylenol) 650 mg Q4H PRN PO 10/06/16 07:45 (Zofran Inj) 4 mg Q6H PRN IVP 10/06/16 07:45 10/07/16 05:02 (Narcan Inj) 0.4 mg UNSCH PRN IV 10/06/16 07:45 (Keyona-Colace) 1 tab BID PO 10/06/16 09:00 10/07/16 09:39 (Milk Of Magnesia Liq) 30 ml Q12H PRN PO 10/06/16 07:45 (Senokot) 17.2 mg Q12H PRN PO 10/06/16 07:45 (Dulcolax Supp) 10 mg DAILY PRN RECTAL 10/06/16 07:45 Lactulose 30 ml 30 ml DAILY PRN PO 10/06/16 07:45 (Zithromax Inj/ NS 250 ml Inj) 250 ml @ 250 mls/hr Q24H IV 10/06/16 09:00 10/07/16 09:38 (D50w (Vial) Inj) 50 ml UNSCH PRN IV 10/06/16 08:45 (Glucagon Inj) 1 mg UNSCH PRN OTHER 10/06/16 08:45 (Norvasc) 5 mg DAILY PO 10/06/16 09:00 10/07/16 09:38 (Aspirin Chew) 81 mg DAILY CHEW 10/06/16 09:00 10/07/16 09:38 (Coreg) 6.25 mg BID PO 10/06/16 09:00 10/07/16 09:38 (Plavix) 75 mg DAILY PO 10/06/16 09:00 10/07/16 09:39 (Trusopt 2% Opth Soln) 1 drop BID RIGHT EYE 10/06/16 09:00 10/07/16 09:40 (Zetia) 10 mg HS PO 10/06/16 21:00 10/06/16 21:16 (Lasix) 40 mg DAILY PO 10/06/16 09:00 10/07/16 09:38 (Ismo) 20 mg BID PO 10/06/16 09:00 10/07/16 09:38 (Protonix) 40 mg DAILY PO 10/06/16 09:00 10/07/16 09:38 (KCl) 10 meq BID PO 10/06/16 09:00 10/07/16 09:38 (Pred Forte 1% Opth Susp) 1 drop BID LEFT EYE 10/06/16 09:00 10/07/16 09:40 (Requip) 1 mg HS PO 10/06/16 21:00 10/06/16 21:14 (Amaryl) 2 mg BIDAC PO 10/07/16 16:00 UNV Vital Signs / I&O Vital Signs Date Time Temp Pulse Resp B/P Pulse Ox O2 Delivery O2 Flow Rate FiO2 10/07/16 08:00 97.4 54 18 141/61 94 10/07/16 04:00 97.7 51 18 128/56 93 10/07/16 00:15 97.7 55 18 131/53 93 10/06/16 23:25 98.0 53 18 115/50 97 10/06/16 19:22 98.0 54 18 120/53 97 10/06/16 15:29 97.6 52 16 118/52 99 I/O 10/06/16 10/06/16 10/06/16 10/07/16 10/07/16 10/07/16 07:00 15:00 23:00 07:00 15:00 23:00 Intake Total 300 ml Balance 300 ml Intake IV Total 300 ml Physical Exam GENERAL: NAD, AAOx3 SKIN: Warm and dry. HEAD: Atraumatic. Normocephalic. EYES: Pupils equal and round. No scleral icterus. No injection or drainage. ENT: No nasal bleeding or discharge. Mucous membranes pink and moist. NECK: Trachea midline. No JVD. CARDIOVASCULAR: Regular rate and rhythm. 1/6 holosystolic murmur at the apex RESPIRATORY: No accessory muscle use. Clear to auscultation. Breath sounds equal bilaterally. GASTROINTESTINAL: Abdomen soft, non-tender, nondistended. Hepatic and splenic margins not palpable. MUSCULOSKELETAL: Extremities without clubbing, cyanosis, or edema. No obvious deformities. NEUROLOGICAL: Awake and alert. No obvious cranial nerve deficits. Motor grossly within normal limits. Five out of 5 muscle strength in the arms and legs. Normal speech. PSYCHIATRIC: Appropriate mood and affect; insight and judgment normal. Laboratory Laboratory Tests Test 10/06/16 10/06/16 10/07/16 14:21 21:11 06:57 Total Creatine Kinase 35 U/L 40 U/L Troponin I LESS THAN 0.02 LESS THAN 0.02 NG/ML NG/ML Iron Level 28 MCG/DL Total Iron Binding Capacity 256 MCG/DL Percent Iron Saturation 10.9 % Ferritin 20 NG/ML Vitamin B12 Level 252 PG/ML White Blood Count 3.5 TH/MM3 Red Blood Count 2.80 MIL/MM3 Hemoglobin 8.2 GM/DL Hematocrit 24.6 % Mean Corpuscular Volume 87.8 FL Mean Corpuscular Hemoglobin 29.2 PG Mean Corpuscular Hemoglobin 33.3 % Concent Red Cell Distribution Width 15.2 % Platelet Count 164 TH/MM3 Mean Platelet Volume 10.4 FL Neutrophils (%) (Auto) 68.6 % Lymphocytes (%) (Auto) 19.4 % Monocytes (%) (Auto) 11.5 % Eosinophils (%) (Auto) 0.2 % Basophils (%) (Auto) 0.3 % Neutrophils # (Auto) 2.4 TH/MM3 Lymphocytes # (Auto) 0.7 TH/MM3 Monocytes # (Auto) 0.4 TH/MM3 Eosinophils # (Auto) 0.0 TH/MM3 Basophils # (Auto) 0.0 TH/MM3 CBC Comment DIFF FINAL Differential Comment Sodium Level 142 MEQ/L Potassium Level 4.0 MEQ/L Chloride Level 108 MEQ/L Carbon Dioxide Level 27.4 MEQ/L Anion Gap 7 MEQ/L Blood Urea Nitrogen 29 MG/DL Creatinine 1.13 MG/DL Estimat Glomerular Filtration 45 ML/MIN Rate Random Glucose 142 MG/DL Calcium Level 8.3 MG/DL Assessment and Plan Problem List: (1) Hypertension (2) Hyperlipidemia (3) CAD (coronary artery disease) (4) Chest pain (5) Paroxysmal a-fib (6) DM (diabetes mellitus) (7) GERD (gastroesophageal reflux disease) (8) Hx of CABG (9) Pneumonia Assessment and Plan 1) Atypical chest pain, does not want further ischemic evaluation Chest pain now more musculoskeletal in nature, but concern about possible angina before presenting Does not want ischemic evaluation, will con't medical management 2) PAF, previously on Eliquis but had hematuria Will not restart anticoagulation at this time due to hematuria, also with recent fall hitting her head 3) PNA per primary team 4) Will see PRN, call with questions, can follow up with Dr. ASHLEY on discharge Problem Qualifiers (1) Hypertension: Qualified Code: I10 - Essential hypertension (2) Hyperlipidemia: Qualified Code: E78.5 - Hyperlipidemia, unspecified hyperlipidemia type (3) CAD (coronary artery disease): Qualified Code: I25.118 - Coronary artery disease of [place] artery of [place] heart with stable angina pectoris (4) Chest pain: Qualified Code: R07.9 - Chest pain, unspecified type (5) GERD (gastroesophageal reflux disease): Qualified Code: K21.9 - Gastroesophageal reflux disease, esophagitis presence not specified (6) Pneumonia: Qualified Code: J18.9 - Pneumonia of both lower lobes due to infectious organism Isrrael Brink DO Oct 07, 2016 13:17
[2016-10-07 16:00] VITALS: BP 153/69; PULSE 53; RESP 18; TEMP 97.3; O2SAT 94
[2016-10-07] MEDS ORDERED: INSULIN ASPART SUPPLEMENTAL SCALE SQ SCH (16:00)
[2016-10-07] MEDS ORDERED: glipiZIDE 5 MG TAB PO SCH (17:00)
[2016-10-07] MEDS: GLIMEPIRIDE 2 MG TAB PO SCH (17:26)
[2016-10-07 20:00] VITALS: BP 157/67; PULSE 57; RESP 20; TEMP 97.5; O2SAT 93
[2016-10-07] MEDS: EZETIMIBE 10 MG TAB PO SCH (20:29)
[2016-10-08] VITALS: BP 131/59; PULSE 61; RESP 20; TEMP 98.1; O2SAT 98
[2016-10-08 04:00] VITALS: BP 136/64; PULSE 56; RESP 20; TEMP 98.9; O2SAT 94
[2016-10-08] MEDS: ONDANSETRON HCL 4 MG/2 ML VIAL IVP PRN (06:15)
[2016-10-08] MEDS: GLIMEPIRIDE 2 MG TAB PO SCH (07:24)
[2016-10-08 08:00] VITALS: BP 157/64; PULSE 63; RESP 18; TEMP 98.1; O2SAT 97
[2016-10-08] MEDS: DOCUSATE SODIUM 50 MG/SENNA 8.6 MG TAB PO SCH (09:00)
[2016-10-08] MEDS: ASPIRIN 81 MG CHEW TAB CHEW SCH (10:24)
[2016-10-08] MEDS: POTASSIUM CHLORIDE 10 MEQ CONTROLLED RELEASE TAB PO SCH (10:24)
[2016-10-08] MEDS: FUROSEMIDE 40 MG TAB PO SCH (10:24)
[2016-10-08] MEDS: CARVEDILOL 6.25 MG TAB PO SCH (10:25)
[2016-10-08] MEDS: ISOSORBIDE MONONITRATE 20 MG TAB PO SCH (10:25)
[2016-10-08] MEDS: CLOPIDOGREL 75 MG TAB PO SCH (10:25)
[2016-10-08] MEDS: amLODIPine BESYLATE 5 MG TAB PO SCH (10:25)
[2016-10-08] MEDS: PANTOPRAZOLE SOD 40 MG DELAYED RELEASE TAB PO SCH (10:25)
[2016-10-08] MEDS: DORZOLAMIDE 2% OPTH SOLN 200 DROP/10 ML BTLO RIGHT EYE SCH (10:26)
[2016-10-08] MEDS: prednisoLONE ACETATE 1% OPHT SUSP 5 ML BTL LEFT EYE SCH (10:26)
[2016-10-08] MEDS: SODIUM CHLORIDE 0.9% FLUSH 10 ML FLUSH IV FLUSH SCH (10:26)
[2016-10-08] MEDS: AZITHROMYCIN INJ 500 MG in SODIUM CHLOR 0.9% 250 ML INJ 250 ML IV SCH (10:28)
[2016-10-08 12:00] VITALS: BP 158/67; PULSE 57; RESP 18; TEMP 97.9; O2SAT 97
--- NOTE | 2016-10-08 12:10 | HHI.PR ---
Subjective Remarks Resting in bed No chest pain at rest, but atypical chest pain with cough Afebrile Alert Hard of hearing (Halie Lorenz) Objective Objective Results - Vital Signs Date Time Temp Pulse Resp B/P Pulse Ox O2 Delivery O2 Flow Rate FiO2 10/08/16 08:00 98.1 63 18 157/64 97 10/08/16 04:00 98.9 56 20 136/64 94 10/08/16 00:00 98.1 61 20 131/59 98 10/08/16 00:00 Room Air 10/07/16 20:00 97.5 57 20 157/67 93 10/07/16 20:00 Room Air 10/07/16 16:00 97.3 53 18 153/69 94 I/O 10/07/16 10/07/16 10/07/16 10/08/16 10/08/16 10/08/16 07:00 15:00 23:00 07:00 15:00 23:00 Intake Total 600 ml 490 ml 240 ml Output Total 200 ml Balance 600 ml 290 ml 240 ml Intake Oral 600 ml 240 ml 240 ml IV Total 250 ml Output Urine Total 200 ml # Voids 2 2 3 # Bowel Movements 0 1 (Halie Lorenz) Result Diagram: 10/07/16 0657 10/07/16 0657 ROS General: Fatigue, Weakness Cardiac: Chest Pain (I'll improvement) Pulmonary: Cough (rare, decreased today), SOB (mild exertional) Neuro/MS: Other (up in room with walker high risk for falls) (Halie Lorenz) Physical Exam Physical Exam PHYSICAL EXAMINATION GENERAL: This is a elderly female who appears to be in no acute distress. She is alert and awake HEAD: Normocephalic Facial features appear symmetric. OROPHARYNGEAL: Oropharynx clear NECK: Supple. No nuchal rigidity or lymphadenopathy. Trachea midline without deviation. CARDIAC: Regular rhythm, regular rate, S1 and S2 are heard. LUNGS: Clear to auscultation bilaterally. ABDOMEN: Soft, nontender, no organomegaly or masses. Bowel sounds are heard in all four quadrants. No rebound. No guarding. EXTREMITIES: no edema. Pulses equal bilateral. . NEUROLOGICAL: Patient mood and affect appropriate. No focal deficit SKIN:Warm and moist (Halie Lorenz) A/P Assessment and Plan (1) Chest pain (2) Pneumonia (3) Diabetes (4) CAD (coronary artery disease) (5) GERD (gastroesophageal reflux disease) (6) Hyperlipidemia (7) Hypertension (8) Hx of CABG (9) Restless leg syndrome Vital signs reviewed, heart rate low 60s today dramatic from any pain or shortness of breath, Patient is on Coreg, meds have been eval per cardiology Labs reviewed, anemia stable, if the patient is in the hospital we'll recheck BMP in the morning Debility, she uses walker at home, out of bed in chair and up to bathroom, no chest pain nor shortness of breath at rest, does have some exertional dyspnea but this is her baseline Chest pain, rule out acute coronary syndrome. Appreciate consult and follow-up per cardiology Unsure whether this pain is cardiac in nature, today pain is atypical patient states only chest pain with cough or movement. Continue medical management for now and monitoring patient's bradycardia with any change in her meds. Maintain Coreg at same dose Possible pneumonia, chest x-ray with bilateral infiltrates. We will start Zithromax 500 mg IV daily, patient is allergic to penicillin. Duo nebs prn, coughing less today Anemia, no acute bleeding noted Patient had been on the coagulation, but is quite to be held at this time. Patient had some hematuria, now resolved. High risk for falls Medical management and monitor her symptoms Insulin-dependent diabetes, last 24 hour trends range at 181 193,261 and 217. Will start back her low-dose 70/30. 10 units instead of 16 units. Will need to monitor Accu-Cheks and follow-up with her PCP -Accu-Cheks before meals and at bedtime with insulin therapy as needed Hypertension, stable Continue home medications Hyperlipidemia, stable Continue with statins CK D, stage III, coverage by mouth fluids Monitor renal function per labs as needed Bowel regimen, , laxative effective, loose BMs 3 SCDs for DVT prophylaxis Discussed with nurse Discussed with patient, who is very hard of hearing Discussed with Dr. Reyna, seen on his behalf Discharge planning in process Possible today, patient states she is going to her sister's house, will need home health follow-up (Halie Lorenz) Assessment and Plan Patient seen and examined as above [id number] time spent with patient Labs reviewed Plan of care discussed with SUGAR PRESSER Discussed with patient about DC planning discussed with RN (Wanda Reyna MD) Halie Lorenz Oct 08, 2016 12:10 Wanda Reyna MD Oct 08, 2016 15:32
--- NOTE | 2016-10-08 12:24 | HHI.FF ---
Face to Face Verification Diagnosis: (1) Diabetes mellitus (2) Acute renal insufficiency (3) Atypical chest pain (4) Hx of coronary artery disease (5) Generalized weakness (6) UTI (urinary tract infection) (7) Pneumonia (8) Paroxysmal a-fib Physical Therapy Order: Evaluate and Treat, Improve ambulation, Strength and gait training Occupational Therapy Order: Evaluate and Treat, Improve ADL Home Health Nursing Order: Nursing assessment with vital signs I have seen patient Elena Wilkes on 10/08/16. My clinical findings support the need for the requested home health care services because: Ltd mobility - disease progression Patient has SOB Deconditioned w/ increased weakness High risk of falls I certify that my clinical findings support that this patient is homebound because: Unsteady gait/balance Halie Lorenz Oct 08, 2016 12:24
--- NOTE | 2016-10-08 14:22 | HHI.DS ---
Discharge Summary Admission Date Oct 06, 2016 at 10:14 Discharge Date: Oct 08, 2016 Admitting Diagnosis CP R/O CT (1) Chest pain Diagnosis: Principal (2) Diabetes Diagnosis: Secondary (3) CAD (coronary artery disease) Diagnosis: Secondary (4) GERD (gastroesophageal reflux disease) Diagnosis: Secondary (5) Hyperlipidemia Diagnosis: Secondary (6) Hypertension Diagnosis: Secondary (7) Hx of CABG Diagnosis: Secondary (8) Restless leg syndrome Diagnosis: Secondary (9) Pneumonia Diagnosis: Principal Brief History This was a pleasant 89-year-old elderly white female with significant past medical history CAD, CABG, myocardial infarction, type 2 diabetes, hypertension , hyperlipidemia, bladder cancer. Patient presented to the emergency room complaining of chest discomfort. Patient endorsed that she has not felt well since Monday, she went to see her primary care physician who recommended she come to the emergency room but she declined. Yesterday morning, she had some left hand pain that then moved to the left shoulder, she didn't think much of it and thought it was her arthritis flaring up. Later in the day, she made some chili and after dinner she did dishes. Sometime around 11 AM she started to feel midsternal pressure, she fell sick to her stomach and started to vomit. She had associated shortness of breath and headache. She took a nitroglycerin which helped a little and then repeated a second dose 15 minutes later and then decided to come to the emergency room. Over the last couple nights, she's had subjective fevers, she's had night sweats and has noted increased coughing with no sputum. She's had some mild dysuria. She did have loose stools approximately 2 days ago but that has now resolved. Appetite has been okay. In the emergency room, patient was evaluated. Troponin negative. EKG did not show any ST segment elevation. No white blood count elevation. No fever. CBC is remarkable for anemia, hemoglobin 8.2, hematocrit 25.4. Denies any blood in the stool. She does have chronic kidney disease, creatinine appears to be at baseline. Random glucose was 210. Chest x-ray was for bilateral patchy infiltrates. Last Impressions Chest X-Ray 10/06/16 0552 Signed Impressions: Service Date/Time: September 06:12 - CONCLUSION: Patchy bilateral infiltrates in the central and lower lungs. Silvestre Johnston MD CBC/BMP: 10/07/16 0657 10/07/16 0657 Significant Findings Laboratory Tests Test 10/06/16 10/06/16 10/06/16 10/07/16 05:56 14:21 21:11 06:57 Red Blood Count 2.87 MIL/MM3 2.80 MIL/MM3 (4.00-5.30) (4.00-5.30) Hemoglobin 8.2 GM/DL 8.2 GM/DL (11.6-15.3) (11.6-15.3) Hematocrit 25.4 % 24.6 % (35.0-46.0) (35.0-46.0) Neutrophils (%) (Auto) 80.6 % (16.0-70.0) Monocytes (%) (Auto) 10.1 % 11.5 % (0.0-8.0) (0.0-8.0) Lymphocytes # (Auto) 0.6 TH/MM3 0.7 TH/MM3 (1.0-4.8) (1.0-4.8) Chloride Level 108 MEQ/L 108 MEQ/L (98-107) (98-107) Blood Urea Nitrogen 29 MG/DL (7-18) 29 MG/DL (7-18) Creatinine 1.26 MG/DL 1.13 MG/DL (0.50-1.00) (0.50-1.00) Estimat Glomerular Filtration 40 ML/MIN (>89) 45 ML/MIN (>89) Rate Random Glucose 210 MG/DL 142 MG/DL (74-106) (74-106) Calcium Level 8.1 MG/DL 8.3 MG/DL (8.5-10.1) (8.5-10.1) Aspartate Amino Transf 7 U/L (15-37) (AST/SGOT) Troponin I LESS THAN 0.02 LESS THAN 0.02 LESS THAN 0.02 NG/ML NG/ML NG/ML (0.02-0.05) (0.02-0.05) (0.02-0.05) B-Type Natriuretic Peptide 220 PG/ML (0-100) Total Protein 5.9 GM/DL (6.4-8.2) Albumin 3.0 GM/DL (3.4-5.0) Iron Level 28 MCG/DL (50-170) Percent Iron Saturation 10.9 % (20-50) White Blood Count 3.5 TH/MM3 (4.0-11.0) Imaging Last Impressions Chest X-Ray 10/06/16 0552 Signed Impressions: Service Date/Time: , October 06, 2016 06:12 - CONCLUSION: Patchy bilateral infiltrates in the central and lower lungs. Silvestre Johnston MD PE at Discharge GENERAL: This was a elderly female who appears to be in no acute distress. She was alert and awake HEAD: Normocephalic Facial features appear symmetric. OROPHARYNGEAL: Oropharynx clear NECK: Supple. No nuchal rigidity or lymphadenopathy. Trachea midline without deviation. CARDIAC: Regular rhythm, regular rate, S1 and S2 are heard. LUNGS: Clear to auscultation bilaterally. ABDOMEN: Soft, nontender, no organomegaly or masses. Bowel sounds are heard in all four quadrants. No rebound. No guarding. EXTREMITIES: no edema. Pulses equal bilateral. . NEUROLOGICAL: Patient mood and affect appropriate. No focal deficit SKIN:Warm and moist Hospital Course She was given morphine and nitroglycerin in the emergency room. At this time she remained chest pain-free. She did have a dry cough, nonproductive. She's noted with a bruise to the left shoulder blade. Patient indicated that approximately 2-3 weeks ago she had a hypoglycemic episode and passed out in the bathroom and fell and hit the back of her head. Indicated this had happened before that as well. Patient was on Amaryl. Indicated that she doesn' t check her blood sugars as often throughout the day. Patient was admitted for further evaluation and treatment. Plan A/P Assessment and Plan (1) Chest pain (2) Pneumonia (3) Diabetes (4) CAD (coronary artery disease) (5) GERD (gastroesophageal reflux disease) (6) Hyperlipidemia (7) Hypertension (8) Hx of CABG (9) Restless leg syndrome Vital signs reviewed, heart rate controlled in 60s. Had some bradycardia initially, but asymptomatic. Denies from any pain or shortness of breath last 24 hrs., Patient is on Coreg, meds have been eval per cardiology Labs reviewed, anemia stable, labs were reviewed throughout hospital stay Debility, she uses walker at home, out of bed in chair and up to bathroom, no chest pain nor shortness of breath at rest, does have some exertional dyspnea but this is her baseline Chest pain, rule out acute coronary syndrome. Appreciate consult and follow-up per cardiology Unsure whether this pain is cardiac in nature, today pain is atypical patient states only chest pain with cough or movement. Continue medical management for now and monitoring patient's bradycardia with any change in her meds. Maintain Coreg at same dose Possible pneumonia, chest x-ray with bilateral infiltrates. We will start Zithromax 500 mg IV daily, patient is allergic to penicillin. Duo nebs prn, coughing less today, Responded to meds. Anemia, no acute bleeding noted Patient had been on the coagulation, but is quite to be held at this time. Patient had some hematuria, now resolved. High risk for falls Medical management and monitor her symptoms Insulin-dependent diabetes, last 24 hour trends range at 181 193,261 and 217. Will start back her low-dose 70/30. 10 units instead of 16 units. Will need to monitor Accu-Cheks and follow-up with her PCP -Accu-Cheks before meals and at bedtime with insulin therapy as needed Hypertension, stable Continue home medications Hyperlipidemia, stable Continue with statins CK D, stage III, coverage by mouth fluids Monitor renal function per labs as needed Bowel regimen, , laxative effective, loose BMs 3 SCDs for DVT prophylaxis Discussed with nurse daily Discussed with patient, who is very hard of hearing Discussed with Dr. Reyna, seen on his behalf daily Discharge planning in process stable for dc today. patient states she is going to her sister's house, will need home health follow-up Pt Condition on Discharge: Stable Discharge Disposition: Disch w/ Home Health Serv Discharge Instructions DIET: Follow Instructions for: Heart Healthy Diet Activities you can perform: Weight Bearing as Maura Follow up Referrals: Cardiology - 2 Weeks PCP Follow-up - 1 Week Continued Medications: Amlodipine (Amlodipine) 5 Mg Tab 5 MG PO DAILY Blood Pressure Management #30 Ref 0 TAB Aspirin (Aspirin) 81 Mg Chew 81 MG CHEW DAILY Ref 0 TAB Carvedilol (Carvedilol) 6.25 Mg Tab 6.25 MG PO BID #60 Ref 0 TAB Clopidogrel (Plavix) 75 Mg Tab 75 MG PO DAILY Stroke Prevention #30 Ref 1 TAB Dorzolamide Opth Drops (Dorzolamide Opth Drops) 2% Soln 1 DROP RIGHT EYE BID Glaucoma #1 Ref 0 BOTTLE Ezetimibe (Zetia) 10 Mg Tab 10 MG PO HS Cholesterol Management #30 Ref 0 TAB Furosemide (Lasix) 40 Mg Tab 40 MG PO DAILY EDEMA #30 Ref 0 TAB Glimepiride (Glimepiride) 2 Mg Tab 2 MG PO BID Blood Sugar Management #60 Ref 0 TAB Hydrocodone-Acetaminophen (Lortab) 5-325 Mg Tab 1-2 TAB PO Q4-6H PRN PAIN Ref 0 TAB Insulin Human Isophane-Regular 70-30 Inj (Novolin 70-30 Inj) 1,000 Unit/10 Ml Vial 16 UNITS SQ BID Blood Sugar Management Ref 0 ML Isosorbide Mononitrate (Isosorbide Mononitrate) 20 Mg Tab 20 MG PO BID Prevent Chest Pain #60 Ref 0 TAB Nitroglycerin SL (Nitroglycerin SL) 0.4 Mg Subl 0.4 MG SL DIRECTED ONE TABLET UNDER THE TONGUE NEEDED FOR CHEST PAIN, MAY REPEAT EVERY FIVE MINUTES FOR A TOTAL OF 3 DOSES OR CALL 911 IF NO RELIEF PRN CHEST PAIN #100 Ref 0 TAB.SL Pantoprazole (Pantoprazole) 40 Mg Tab 40 MG PO DAILY Reflux #30 Ref 0 TAB Potassium Chloride ER (K-Tab) 10 Meq Tab 10 MEQ PO BID Electrolyte Replacement #60 Ref 0 TAB Prednisolone Acetate Opth 1% (Pred Forte Opth 1%) 1% Susp 1 DROP LEFT EYE BID Inflammation #1 Ref 0 BOTTLE Pregabalin (Lyrica) 50 Mg Cap 50 MG PO BID NEUROPATHY #60 Ref 0 CAP Propylene Glycol-Glycerin Opth Drops (Artificial Tears Opth Drops) 1-0.3% Drops 1-2 DROP EACH EYE PRN PRN DRY EYE #15 Ref 0 ML Ropinirole (Requip) 1 Mg Tab 1 MG PO HS restless leg #30 Ref 1 TAB Halie Lorenz Oct 08, 2016 14:22
[2016-10-08] MEDS ORDERED: INSULIN HUMAN NPH/R 70/30 1,000 UNITS/10 ML VIAL SQ SCH (17:00)
== END 2016-10-08 14:46 | disposition home health service (06) | DRG 313 ==
LOC: NEPE 05:49 → NEDA 07:14 → NEPHCDU 08:41 → OBSVTOIN 10:14 → N04A 23:48
PROVIDERS: ADMIT Specialist; ATTEND Specialist
DX: R07.9 Chest pain, unspecified (principal); J18.9 Pneumonia, unspecified organism; N17.9 Acute kidney failure, unspecified; I13.0 Hypertensive heart and chronic kidney disease with heart failure and stage 1 through stage 4 chronic kidney disease, or unspecified chronic kidney disease; E11.22 Type 2 diabetes mellitus with diabetic chronic kidney disease; I50.9 Heart failure, unspecified; I48.0 Paroxysmal atrial fibrillation; D64.9 Anemia, unspecified; I25.118 Atherosclerotic heart disease of native coronary artery with other forms of angina pectoris; E78.5 Hyperlipidemia, unspecified; G25.81 Restless legs syndrome; N18.9 Chronic kidney disease, unspecified; K21.0 Gastro-esophageal reflux disease with esophagitis; M19.90 Unspecified osteoarthritis, unspecified site; H91.90 Unspecified hearing loss, unspecified ear; Z79.4 Long term (current) use of insulin; I25.2 Old myocardial infarction; Z85.51 Personal history of malignant neoplasm of bladder; Z95.1 Presence of aortocoronary bypass graft
CPT/HCPCS: 71010; 80048; 80053; 82550; 82607; 82728; 82948; 83540; 83550; 83690; 83735; 83880; 84484; 85025; 85044; 85610; 85730; 93005; 96374; J0456; J1815; J2270; J2405; J7030; J7050

== ENCOUNTER 2017-05-27 04:42 | Observation (INO) | payer MEDICARE, BC ==
[2017-05-27] VITALS (7 sets, daily range): BP systolic 122–203; BP diastolic 58–131; PULSE 55–61; RESP 16–20; TEMP 97.7–98.6; O2SAT 98–100
[~2017-05-27] VITALS: Ht 149.9 cm; Wt 59.0 kg
[~2017-05-27 04:42] MED LIST changes: +ARTIDRO EACH EYE; +ASPI-516 CHEW; -ASPI1TAB69 PO; +EZET10 PO; -JUSTSOL EACH EYE; -ZETI10TA5 PO; -ZITH500T PO
[2017-05-27] MEDS ORDERED: ASPIRIN 81 MG CHEW TAB PO ONE (05:15)
[2017-05-27] MEDS ORDERED: SODIUM CHLORIDE 0.9% FLUSH 10 ML FLUSH IVF PRN (05:15)
--- NOTE | 2017-05-27 05:18 | PD ---
HPI Chief Complaint: Chest Pain Time Seen by Provider: 04:56 Travel History International Travel<30 days: No Contact w/Intl Traveler<30days: No Traveled to known affect area: No History of Present Illness HPI 89 y/o female presents with chest pain that she has been having over the past couple days. She states she went to her mems process engineer yesterday Dr. Morataya who recommended that she come in but she wanted to try to go home and rest but that did not improve her symptoms so she decided to come here. She states she took a baby aspirin prior to arrival. She states she also gets a little short of breath. She denies any other concurrent complaints. She states she feels worse when she moves around. She denies other modifying factors. Quality is pressure. Severity is moderate. PFSH Past Medical History Hx Anticoagulant Therapy: Yes Arthritis: Yes Asthma: No Autoimmune Disease: No Blood Disorders: No Anxiety: Yes Depression: No Heart Rhythm Problems: Yes Cancer: Yes (BLADDER) Cardiac Catheterization: Yes Cardiovascular Problems: Yes (CABG) High Cholesterol: Yes Chemotherapy: No Chest Pain: Yes Congestive Heart Failure: Yes COPD: No Cerebrovascular Accident: No Diabetes: Yes Patient Takes Glucophage: Yes Diminished Hearing: Yes (HEARING AID RIGHT EAR) Endocrine: Yes Gastrointestinal Disorders: Yes (GERD) GERD: Yes Glaucoma: No Genitourinary: Yes (BLADDER CANCER/ HEMATURIA) Headaches: No Hepatitis: No Hiatal Hernia: Yes Hypertension: Yes Immune Disorder: No Implanted Vascular Access Dvce: Yes Kidney Stones: No Musculoskeletal: Yes (ARTHRITIS) Neurologic: Yes (NEUROPATHY FEET) Psychiatric: No Reproductive: No Respiratory: No Immunizations Current: Yes Migraines: No Myocardial Infarction: Yes Radiation Therapy: No Renal Failure: Yes Seizures: No Sickle Cell Disease: No Sleep Apnea: No Thyroid Disease: No Ulcer: No PNEUMOCCOCAL Vaccine (Year): 1 Menopausal: Yes : 2 Para: 2 Past Surgical History Abdominal Surgery: No AICD: No Appendectomy: No Arteriovenous Shunt: No Body Medical Devices: STERNAL WIRES Cardiac Surgery: Yes (CABG X2 SX'S 1981, 1989) Coronary Artery Bypass Graft: Yes (1981 OPEN HEART DOUBLE BYPASS, 1989 OPEN HEART DOUBLE BYPASS) Ear Surgery: Yes Endocrine Surgery: No Eye Surgery: Yes (SCOT CATARACT ; LEFT RETINA SX) Genitourinary Surgery: No Gynecologic Surgery: Yes (HYSTERECTOMY) Hysterectomy: Yes Insulin Pump: No Joint Replacement: No Neurologic Surgery: Yes Oral Surgery: No Pacemaker: No Thoracic Surgery: Yes Family History Family Myocardial Infarction: Yes Social History Alcohol Use: No Tobacco Use: No Substance Use: No Allergies-Medications (Allergen,Severity, Reaction): Coded Allergies: penicillin G (Unverified Allergy, Severe, SEVERE ITCHING, 11/22/16) Reported Meds & Prescriptions Reported Meds & Active Scripts Active Requip (Ropinirole) 1 Mg Tab 1 Mg PO HS Plavix (Clopidogrel Bisulfate) 75 Mg Tab 75 Mg PO DAILY Reported Aspirin 81 Mg Chew 81 Mg CHEW DAILY Artificial Tears Opth Drops (Propylene Glycol-Glycerin Opth Drops) 1-0.3% Drops 1-2 Drop EACH EYE PRN PRN Zetia (Ezetimibe) 10 Mg Tab 10 Mg PO HS Pred Forte Opth 1% (Prednisolone Acetate Opth 1%) 1% Susp 1 Drop LEFT EYE BID Pantoprazole (Pantoprazole Sodium) 40 Mg Tab 40 Mg PO DAILY Novolin 70-30 Inj (Insulin Human Isoph/Insulin Regular) 1,000 Unit/10 Ml Vial 16 Units SQ BID Nitroglycerin SL (Nitroglycerin) 0.4 Mg Subl 0.4 Mg SL DIRECTED PRN ONE TABLET UNDER THE TONGUE NEEDED FOR CHEST PAIN, MAY REPEAT EVERY FIVE MINUTES FOR A TOTAL OF 3 DOSES OR CALL 911 IF NO RELIEF Lyrica (Pregabalin) 50 Mg Cap 50 Mg PO BID Isosorbide Mononitrate 20 Mg Tab 20 Mg PO BID Lortab (Hydrocodone-Acetaminophen) 5-325 Mg Tab 1-2 Tab PO Q4-6H PRN Glimepiride 2 Mg Tab 2 Mg PO BID Lasix (Furosemide) 40 Mg Tab 40 Mg PO DAILY Dorzolamide Opth Drops (Dorzolamide HCl) 2% Soln 1 Drop RIGHT EYE BID Carvedilol 6.25 Mg Tab 6.25 Mg PO BID K-Tab (Potassium Chloride) 10 Meq Tab 10 Meq PO BID Amlodipine (Amlodipine Besylate) 5 Mg Tab 5 Mg PO DAILY Review of Systems Except as stated in HPI: all other systems reviewed are Neg Physical Exam Exam Limitations: Other: (hard of hearing) Narrative GENERAL: 89 y/o female appears in no apparent distress SKIN: Focused skin assessment warm/dry. HEAD: Atraumatic. Normocephalic. EYES: Pupils equal and round. No scleral icterus. No injection or drainage. ENT: No nasal bleeding or discharge. Mucous membranes pink and moist. NECK: Trachea midline. No JVD. CARDIOVASCULAR: Regular rate and rhythm. RESPIRATORY: No accessory muscle use. Clear to auscultation. Breath sounds equal bilaterally. GASTROINTESTINAL: Abdomen soft, non-tender, nondistended. MUSCULOSKELETAL: No obvious deformities. No clubbing. No cyanosis. NEUROLOGICAL: Awake. Moves all extremities. Normal speech. Data Data Last Documented VS Vital Signs Date Time Temp Pulse Resp B/P (MAP) Pulse Ox O2 Delivery O2 Flow Rate FiO2 05/27/17 05:43 61 18 127/58 (81) 98 Room Air 05/27/17 04:46 98.6 Orders Orders Electrocardiogram (05/27/17 05:02) B-Type Natriuretic Peptide (05/27/17 05:02) Ckmb (Isoenzyme) Profile (05/27/17 05:02) Complete Blood Count With Diff (05/27/17 05:02) Comprehensive Metabolic Panel (05/27/17 05:02) Magnesium (Mg) (05/27/17 05:02) Prothrombin Time / Inr (Pt) (05/27/17 05:02) Act Partial Throm Time (Ptt) (05/27/17 05:02) Troponin I (05/27/17 05:02) Chest, Single Ap (05/27/17 05:02) Ecg Monitoring (05/27/17 05:02) Bilateral Bp Monitoring (05/27/17 05:02) Iv Access Insert/Monitor (05/27/17 05:02) Oximetry (05/27/17 05:02) Aspirin Chew (Aspirin Chew) (05/27/17 05:15) Sodium Chloride 0.9% Flush (Ns Flush) (05/27/17 05:15) Nitroglycerin Sl (Nitrostat Sl) (05/27/17 05:15) Blood Glucose (05/27/17 05:54) Admit Order (Ed Use Only) (05/27/17 06:09) Labs Laboratory Tests Test 05/27/17 05:05 White Blood Count 4.3 TH/MM3 Red Blood Count 3.80 MIL/MM3 Hemoglobin 11.4 GM/DL Hematocrit 34.2 % Mean Corpuscular Volume 90.1 FL Mean Corpuscular Hemoglobin 30.0 PG Mean Corpuscular Hemoglobin Concent 33.3 % Red Cell Distribution Width 13.7 % Platelet Count 212 TH/MM3 Mean Platelet Volume 9.7 FL Neutrophils (%) (Auto) 54.1 % Lymphocytes (%) (Auto) 31.7 % Monocytes (%) (Auto) 13.5 % Eosinophils (%) (Auto) 0.1 % Basophils (%) (Auto) 0.6 % Neutrophils # (Auto) 2.3 TH/MM3 Lymphocytes # (Auto) 1.4 TH/MM3 Monocytes # (Auto) 0.6 TH/MM3 Eosinophils # (Auto) 0.0 TH/MM3 Basophils # (Auto) 0.0 TH/MM3 CBC Comment DIFF FINAL Differential Comment Prothrombin Time 10.4 SEC Prothromb Time International Ratio 1.0 RATIO Activated Partial Thromboplast Time 25.2 SEC Blood Urea Nitrogen 28 MG/DL Creatinine 1.08 MG/DL Random Glucose 68 MG/DL Total Protein 6.7 GM/DL Albumin 3.7 GM/DL Calcium Level 9.5 MG/DL Magnesium Level 2.4 MG/DL Alkaline Phosphatase 71 U/L Aspartate Amino Transf (AST/SGOT) 15 U/L Alanine Aminotransferase (ALT/SGPT) 20 U/L Total Bilirubin 0.6 MG/DL Sodium Level 142 MEQ/L Potassium Level 3.8 MEQ/L Chloride Level 105 MEQ/L Carbon Dioxide Level 31.3 MEQ/L Anion Gap 6 MEQ/L Estimat Glomerular Filtration Rate 48 ML/MIN Total Creatine Kinase 63 U/L Troponin I LESS THAN 0.02 NG/ML B-Type Natriuretic Peptide 102 PG/ML MDM Medical Decision Making Medical Screen Exam Complete: Yes Emergency Medical Condition: Yes Medical Record Reviewed: Yes (pmh confirmed) Interpretation(s) CBC & BMP Diagram 05/27/17 05:05 Total Protein 6.7, Albumin 3.7, Calcium Level 9.5, Magnesium Level 2.4, Alkaline Phosphatase 71, Aspartate Amino Transf (AST/SGOT) 15, Alanine Aminotransferase (ALT/SGPT) 20, Total Bilirubin 0.6 Last 24 hours Impressions Chest X-Ray 05/27/17 0502 Signed Impressions: Service Date/Time: Saturday, May 27, 2017 05:39 - CONCLUSION: Questionable mild CHF. Wali Knight MD bnp is normal Differential Diagnosis Musculoskeletal, gastritis, cardiac Narrative Course will check labs, cxr, ekg and reevaluate ed workup with labs without emergent findings, patient agrees to observation for blood work and stress test but states she would not want a heart catheter Diagnosis Primary Impression: Chest pain Qualified Codes: R07.9 - Chest pain, unspecified Catia Collins MD May 27, 2017 05:18
[2017-05-27] MEDS: NITROGLYCERIN 0.4 MG SL 25 TABS/BTL SL SCH ×2 (05:19→05:29)
[2017-05-27 05:28] LABS: AUTOMATED NEUTROPHIL # 2.3 TH/MM3 (1.8-7.7); BASOPHIL % 0.6 % (0.0-2.0); EOSINOPHIL % 0.1 % (0.0-4.0); HEMATOCRIT 34.2 % (35.0-46.0); HEMOGLOBIN 11.4 GM/DL (11.6-15.3); LYMPH % 31.7 % (9.0-44.0); LYMPHOCYTE # 1.4 TH/MM3 (1.0-4.8); MEAN CELL VOLUME 90.1 FL (80.0-100.0); MEAN CORPUSCULAR HGB CONC 33.3 % (32.0-36.0); MEAN PLATELET VOLUME 9.7 FL (7.0-11.0); MONO % 13.5 % (0.0-8.0); MONOCYTE # 0.6 TH/MM3 (0-0.9); NEUT % 54.1 % (16.0-70.0); PLATELET COUNT 212 TH/MM3 (150-450); RED CELL DISTRIBUTION WIDTH 13.7 % (11.6-17.2); WHITE BLOOD COUNT 4.3 TH/MM3 (4.0-11.0)
[2017-05-27 05:38] LABS: ALBUMIN 3.7 GM/DL (3.4-5.0); AST (GOT) 15 U/L (15-37); BICARBONATE 31.3 MEQ/L (21.0-32.0); BLOOD UREA NITROGEN 28 MG/DL (7-18); CALCIUM 9.5 MG/DL (8.5-10.1); CHLORIDE 105 MEQ/L (98-107); CREATININE 1.08 MG/DL (0.50-1.00); GLOMERULAR FILTRATION RATE 48 ML/MIN (>89); GLUCOSE,RANDOM 68 MG/DL (74-106); MAGNESIUM 2.4 MG/DL (1.5-2.5); SODIUM (NA) 142 MEQ/L (136-145)
[2017-05-27 05:39] LABS: ALT (GPT) 20 U/L (10-53); PROTHROMBIN TIME - PATIENT 10.4 SEC (9.8-11.6)
[2017-05-27 05:43] LABS: ALKALINE PHOSPHATASE 71 U/L (45-117); TOTAL BILIRUBIN ADULT 0.6 MG/DL (0.2-1.0); TOTAL PROTEIN 6.7 GM/DL (6.4-8.2); TROPONIN I LESS THAN 0.02 NG/ML (0.02-0.05)
--- NOTE | 2017-05-27 06:01 | RADRPT ---
EXAM DATE/TIME: 05/27/2017 05:39 [facility] COMPARISON: CHEST SINGLE AP, October 06, 2016, 6:12. INDICATIONS : Left sided chest pain MEDICAL HISTORY : Hypercholesterolemia. Diabetes mellitus type II. Hypertension. [place], Bladder Cancer, Hiatal Hernia , Renal Failure SURGICAL HISTORY : CABG. Hysterectomy. ENCOUNTER: Initial ACUITY: 1 day PAIN SCORE: 8/10 LOCATION: Bilateral chest FINDINGS: Borderline cardiomegaly is seen with mild prominence of the interstitial markings. There are atherosc lerotic calcifications of the aorta due to chronic atherosclerotic disease. CONCLUSION: Questionable mild CHF. KNohemy Knight MD on May 27, 2017 at 5:59 Board Certified Radiologist. This report was verified electronically.
[2017-05-27] MEDS ORDERED: SODIUM CHLORIDE 0.9% FLUSH 10 ML FLUSH IV FLUSH PRN (06:15)
[2017-05-27] MEDS ORDERED: GLUCAGON 1 MG/ML VIAL OTHER PRN (08:45)
[2017-05-27] MEDS ORDERED: DEXTROSE 50% IN WATER 50 ML VIAL(D50) IV PUSH PRN (08:45)
[2017-05-27 08:52] LABS: TROPONIN I LESS THAN 0.02 NG/ML (0.02-0.05)
[2017-05-27] MEDS ORDERED: SODIUM CHLORIDE 0.9% FLUSH 10 ML FLUSH IV FLUSH SCH (09:00)
--- NOTE | 2017-05-27 11:16 | EKG ---
Date Performed: 05/27/2017 Time Performed: 05:00:31 PTAGE: 89 years EKG: Sinus rhythm with With first degree A-V block SEPTAL MYOCARDIAL INFARCTION ABNORMAL ECG Since PREVIOUS TRACING , no significant change noted DOCTOR: Torsten Lunsford Interpretating Date/Time 05/27/2017 11:15:01
[2017-05-27 11:44] LABS: TROPONIN I LESS THAN 0.02 NG/ML (0.02-0.05)
--- NOTE | 2017-05-27 11:53 | HHI.HP ---
HPI Primary Care Physician Basil Bowens MD Chief Complaint Chest Pain History of Present Illness 89 year old female with hx of CAD with CABG in 1981 and redo CABG 1989 that presents to ED via taxi cab with complaint of chest pain. States she regularly has chest pain and believes it is from over doing it at home with chores. States last night " I didn't feel well." She was seen yesterday by Dr Morataya and was found to be hypertensive and was advised to come to the ED. Patient declined and was given a medication by mouth for hypertension by her manufacturing software engineer(does not know what is was). Last night she did not feel right and had jaw pain. Took a nitro and felt lightheaded. Decided to call for a taxi and come to the ED. States her discomforts usually last 4-5 minutes. States she has felt fine since being in the hospital. She does not want stress test or cardiac catheterization and states she has discussed this with Dr Morataya and will be treated with medication. The patient is not aware of her medications. States she takes what she is prescribed. CDU nurse called the patient's pharmacy and verified all medications. She is not on isosorbide, amlodipine, or carvedilol. She has not filled the carvedilol nor the amlodipine since October 2016. They have no records of isosorbide at the pharmacy. Review of Systems General: Patient denies fevers, chills recent, and recent travel HEENT: Patient denies headache, sore throat, difficulty swallowing. Cardiovascular: Has the chest discomfort as mentioned above. Denies sensation of heart beating rapidly or irregularly. No syncope. Respiratory: Denies shortness of breath or inspirational chest discomfort. Denies coughing wheezing or hemoptysis. GI: Patient denies nausea, vomiting, diarrhea, abdominal pain, bloody stools. Musculoskeletal: Patient denies joint pain or edema. Denies calf pain or edema. Neurovascular: Patient denies numbness, tingling, weakness in extremities. Denies headache. Endocrine: Denies polyuria and polydipsia. Hematologic: Denies easy bruising. Skin: Denies rash or itching. Past Family Social History Allergies: Coded Allergies: penicillin G (Unverified Allergy, Severe, SEVERE ITCHING, 11/22/16) Past Medical History CAD with a CABG in 1981 and a redo in 1989. Congestive heart failure. Chronic kidney disease. Diabetes, hypertension, hyperlipidemia, paroxysmal atrial relation, neuropathy, GERD. Past Surgical History Heart catheterizations. Bypass in 1981 and redo bypass in 1989. Hysterectomy, cataracts. Reported Medications Reported Meds & Active Scripts Active Requip (Ropinirole) 1 Mg Tab 1 Mg PO HS Plavix (Clopidogrel Bisulfate) 75 Mg Tab 75 Mg PO DAILY Reported Aspirin 81 Mg Chew 81 Mg CHEW DAILY Artificial Tears Opth Drops (Propylene Glycol-Glycerin Opth Drops) 1-0.3% Drops 1-2 Drop EACH EYE PRN PRN Zetia (Ezetimibe) 10 Mg Tab 10 Mg PO HS Pred Forte Opth 1% (Prednisolone Acetate Opth 1%) 1% Susp 1 Drop LEFT EYE BID Pantoprazole (Pantoprazole Sodium) 40 Mg Tab 40 Mg PO DAILY Novolin 70-30 Inj (Insulin Human Isoph/Insulin Regular) 1,000 Unit/10 Ml Vial 16 Units SQ BID Nitroglycerin SL (Nitroglycerin) 0.4 Mg Subl 0.4 Mg SL DIRECTED PRN ONE TABLET UNDER THE TONGUE NEEDED FOR CHEST PAIN, MAY REPEAT EVERY FIVE MINUTES FOR A TOTAL OF 3 DOSES OR CALL 911 IF NO RELIEF Lyrica (Pregabalin) 50 Mg Cap 50 Mg PO BID Isosorbide Mononitrate 20 Mg Tab 20 Mg PO BID Lortab (Hydrocodone-Acetaminophen) 5-325 Mg Tab 1-2 Tab PO Q4-6H PRN Glimepiride 2 Mg Tab 2 Mg PO BID Lasix (Furosemide) 40 Mg Tab 40 Mg PO DAILY Dorzolamide Opth Drops (Dorzolamide HCl) 2% Soln 1 Drop RIGHT EYE BID Carvedilol 6.25 Mg Tab 6.25 Mg PO BID K-Tab (Potassium Chloride) 10 Meq Tab 10 Meq PO BID Amlodipine (Amlodipine Besylate) 5 Mg Tab 5 Mg PO DAILY Active Ordered Medications Current Medications Medications (Trade) Dose Ordered Sig/Jose G Route Start Time Stop Time Status Last Admin (NS Flush) 2 ml UNSCH PRN IVF 05/27/17 05:15 (NS Flush) 2 ml UNSCH PRN IV FLUSH 05/27/17 06:15 (NS Flush) 2 ml BID IV FLUSH 05/27/17 09:00 05/27/17 09:00 (D50w (Vial) Inj) 50 ml UNSCH PRN IV PUSH 05/27/17 08:45 (Glucagon Inj) 1 mg UNSCH PRN OTHER 05/27/17 08:45 (NovoLOG SUPPLEMENTAL SCALE) 1 ACHS SLIDING SCALE SQ 05/27/17 12:00 Family History There is family history of CAD. Social History Lifetime non-smoker. Denies alcohol or illicit drugs. Lives with her son. Physical Exam Vital Signs Vital Signs Date Time Temp Pulse Resp B/P (MAP) Pulse Ox O2 Delivery O2 Flow Rate FiO2 05/27/17 09:36 98.2 56 20 130/73 (92) 98 05/27/17 07:03 97.7 54 16 122/68 (86) 98 05/27/17 07:03 16 98 Room Air 05/27/17 07:00 56 16 99 Room Air 05/27/17 07:00 16 05/27/17 05:43 61 18 127/58 (81) 98 Room Air 05/27/17 05:31 55 18 134/62 (86) 100 Room Air Automatic Cuff 05/27/17 05:07 56 18 179/81 (113) 100 Room Air 184/78 (113) 05/27/17 04:58 60 18 100 Room Air 05/27/17 04:46 98.6 60 18 174/100 (124) 100 Physical Exam GENERAL: This is a well-nourished, well-developed patient, in no apparent distress. Patient speaks in clear complete sentences. Patient is pleasant. HEENT: Head is atraumatic and normocephalic. Neck is supple without lymphadenopathy and trachea is midline. No JVD. Right carotid bruit. CARDIOVASCULAR: Regular rate and rhythm grade 2 systolic murmur along right sternal border radiating to neck. Without gallops, or rubs. RESPIRATORY: Clear to auscultation. Breath sounds equal bilaterally. No wheezes , rales, or rhonchi. Chest wall is nontender. No use of accessory muscles. GASTROINTESTINAL: Abdomen is nontender, nondistended. Abdomen soft. No obvious pulsatile mass or bruit. No CVA tenderness. Soft femoral pulses bilaterally. Normal bowel sounds in all quadrants. MUSCULOSKELETAL: Patient is moving upper and lower extremities freely. No calf tenderness or edema, no Homans sign. Strong pulses in upper and lower extremities. NEUROLOGICAL: Patient is alert and oriented. Cranial nerves 2-12 are grossly intact. No focal deficits and speech is clear. SKIN: No rash and turgor is normal. Laboratory Laboratory Tests Test 05/27/17 05:05 05/27/17 07:45 05/27/17 11:00 White Blood Count 4.3 Red Blood Count 3.80 Hemoglobin 11.4 Hematocrit 34.2 Mean Corpuscular Volume 90.1 Mean Corpuscular Hemoglobin 30.0 Mean Corpuscular Hemoglobin Concent 33.3 Red Cell Distribution Width 13.7 Platelet Count 212 Mean Platelet Volume 9.7 Neutrophils (%) (Auto) 54.1 Lymphocytes (%) (Auto) 31.7 Monocytes (%) (Auto) 13.5 Eosinophils (%) (Auto) 0.1 Basophils (%) (Auto) 0.6 Neutrophils # (Auto) 2.3 Lymphocytes # (Auto) 1.4 Monocytes # (Auto) 0.6 Eosinophils # (Auto) 0.0 Basophils # (Auto) 0.0 CBC Comment DIFF FINAL Differential Comment Prothrombin Time 10.4 Prothromb Time International Ratio 1.0 Activated Partial Thromboplast Time 25.2 Blood Urea Nitrogen 28 Creatinine 1.08 Random Glucose 68 Total Protein 6.7 Albumin 3.7 Calcium Level 9.5 Magnesium Level 2.4 Alkaline Phosphatase 71 Aspartate Amino Transf (AST/SGOT) 15 Alanine Aminotransferase (ALT/SGPT) 20 Total Bilirubin 0.6 Sodium Level 142 Potassium Level 3.8 Chloride Level 105 Carbon Dioxide Level 31.3 Anion Gap 6 Estimat Glomerular Filtration Rate 48 Total Creatine Kinase 63 49 Troponin I LESS THAN 0.02 LESS THAN 0.02 B-Type Natriuretic Peptide 102 Result Diagram: 05/27/17 0505 05/27/17 0505 Imaging Last 48 hours Impressions Chest X-Ray 05/27/17 0502 Signed Impressions: Service Date/Time: Saturday, May 27, 2017 05:39 - CONCLUSION: Questionable mild CHF. Wali Knight MD Course EKGS ARE SINUS BRADYCARDIA WITH 1ST DEGREE AV BLOCK, NO SIGNIFICANT ST-T CHANGES. Caprini VTE Risk Assessment Caprini VTE Risk Assessment: Mod/High Risk (score >= 2) Caprini Risk Assessment Model Point Value = 1 Point Value = 2 Point Value = 3 Point Value = 5 Age 41-60 Minor surgery BMI > 25 kg/m2 Swollen legs Varicose veins or History of unexplained or recurrent spontaneous Oral contraceptives or hormone replacement Sepsis (< 1 month) Serious lung disease, including pneumonia (< 1 month) Abnormal pulmonary function Acute myocardial infarction Congestive heart failure (< 1 month) History of inflammatory bowel disease Medical patient at bed rest Age 61-74 Arthroscopic surgery Major open surgery (> 45 min) Laparoscopic surgery (> 45 min) Malignancy Confined to bed (> 72 hours) Immobilizing plaster cast Central venous access Age >= 75 History of VTE Family history of VTE Factor V Leiden Prothrombin [id number] Lupus anticoagulant Anticardiolipin antibodies Elevated serum homocysteine Heparin-induced thrombocytopenia Other congenital or acquired thrombophilia Stroke (< 1 month) Elective arthroplasty Hip, pelvis, or leg fracture Acute spinal cord injury (< 1 month) Prophylaxis Regimen Total Risk Factor Score Risk Level Prophylaxis Regimen 0-1 Low Early ambulation 2 Moderate Order ONE of the following: *Sequential Compression Device (SCD) *Heparin 5000 units SQ BID 3-4 Higher Order ONE of the following medications: *Heparin 5000 units SQ TID *Enoxaparin/Lovenox 40 mg SQ daily (WT < 150 kg, CrCl > 30 mL/min) *Enoxaparin/Lovenox 30 mg SQ daily (WT < 150 kg, CrCl > 10-29 mL/min) *Enoxaparin/Lovenox 30 mg SQ BID (WT < 150 kg, CrCl > 30 mL/min) AND/OR *Sequential Compression Device (SCD) 5 or more Highest Order ONE of the following medications: *Heparin 5000 units SQ TID (Preferred with Epidurals) *Enoxaparin/Lovenox 40 mg SQ daily (WT < 150 kg, CrCl > 30 mL/min) *Enoxaparin/Lovenox 30 mg SQ daily (WT < 150 kg, CrCl > 10-29 mL/min) *Enoxaparin/Lovenox 30 mg SQ BID (WT < 150 kg, CrCl > 30 mL/min) AND *Sequential Compression Device (SCD) Assessment and Plan Assessment and Plan * Chest pain: Patient has had serial cardiac enzymes and EKGs were ruling out purposes. She was seen by Dr. Lunsford of cardiology and the chest pain center. Patient does not want to have any stress tests or heart catheterizations. Prefers medical management. Upon reviewing her medication list through her pharmacy, she is on no antianginals. We will start low-dose amlodipine and have her follow back with her manufacturing software engineer Dr. Morataya. Return to ED for interval issues. * Hypertension: Continue current medication * CAD: Resume medications. Follow-up with Dr. Morataya. * Diabetes: Patient is not on any medication at this time. Follow diabetic diet. * Hyperlipidemia: Continue current medication. Patient is stable at this time. She is agreeable to this plan. Jesús Gallardo May 27, 2017 11:53
[2017-05-27] MEDS ORDERED: INSULIN ASPART SUPPLEMENTAL SCALE SQ SCH (12:00)
[2017-05-27] MEDS ORDERED: ATOR20TA15 PO (12:10)
[2017-05-27] MEDS ORDERED: amLODIPine BESYLATE 5 MG TAB PO ONE (12:15)
[2017-05-27] MEDS ORDERED: FURO20TA PO (12:25)
[2017-05-27] MEDS ORDERED: PREGABALIN 25 MG CAP PO SCH (12:30)
[2017-05-27] MEDS ORDERED: PILL SPLITTER OTHER PRN (12:30)
[2017-05-27] MEDS ORDERED: POTASSIUM CHLORIDE 10 MEQ CONTROLLED RELEASE TAB PO SCH (12:30)
[2017-05-27] MEDS ORDERED: AMLO2.5T PO (13:50)
--- NOTE | 2017-05-27 13:50 | HHI.DCPOC ---
Discharge Care Plan Diagnosis: (1) Chest pain (2) CAD (coronary artery disease) (3) Hx of CABG (4) DM (diabetes mellitus) (5) Hypertension (6) Hyperlipidemia (7) GERD (gastroesophageal reflux disease) (8) Chronic kidney disease Goals to Promote Your Health * To prevent worsening of your condition and complications * To maintain your health at the optimal level Directions to Meet Your Goals Take your medications as prescribed Follow your dietary instruction Follow activity as directed Keep your appointments as scheduled Take your immunizations and boosters as scheduled If your symptoms worsen call your PCP, if no PCP go to Urgent Care Center or Emergency Room Smoking is Dangerous to Your Health. Avoid second hand smoke Call the 24-hour hour crisis hotline for domestic abuse at Jesús Gallardo May 27, 2017 13:50
[2017-05-27] MEDS ORDERED: FUROSEMIDE 20 MG TAB PO SCH (14:00)
--- NOTE | 2017-05-27 14:19 | EKG ---
Date Performed: 05/27/2017 Time Performed: 07:52:59 PTAGE: 89 years EKG: SINUS BRADYCARDIA WITH FIRST DEGREE AV BLOCK WITH OCCASIONAL SUPRAVENTRICULAR PREMATURE COM PLEXES ABNORMAL ECG PREVIOUS TRACING : 10/06/2016 12.33 Since previous tracing, no significant change noted DOCTOR: Torsten Lunsford Interpretating Date/Time 05/27/2017 14:18:13
--- NOTE | 2017-05-27 14:23 | EKG ---
Date Performed: 05/27/2017 Time Performed: 11:10:35 PTAGE: 89 years EKG: SINUS BRADYCARDIA WITH FIRST DEGREE AV BLOCK NONSPECIFIC T-WAVE ABNORMALITY ABNORMAL ECG PREVIOUS TRACING : 05/27/2017 07.52 Since previous tracing, no significant change noted DOCTOR: Torsten Lunsford Interpretating Date/Time 05/27/2017 14:22:57
[2017-05-27] MEDS ORDERED: EZETIMIBE 10 MG TAB PO SCH (21:00)
[2017-05-27] MEDS ORDERED: ATORVASTATIN 20 MG TAB PO SCH (21:00)
[2017-05-28] MEDS ORDERED: ASPIRIN 81 MG CHEW TAB CHEW SCH (09:00)
== END 2017-05-27 15:12 | disposition home or self-care (01) ==
LOC: NEPC 04:42 → NEDA 06:12 → NEPFCDU 07:17
PROVIDERS: ADMIT Internal Medicine Interventional Cardiology; ATTEND Internal Medicine Interventional Cardiology
DX: R07.9 Chest pain, unspecified (principal); R06.02 Shortness of breath; I44.0 Atrioventricular block, first degree; R00.1 Bradycardia, unspecified; R94.31 Abnormal electrocardiogram [ECG] [EKG]; E78.00 Pure hypercholesterolemia, unspecified; R42 Dizziness and giddiness; R68.84 Jaw pain; I25.10 Atherosclerotic heart disease of native coronary artery without angina pectoris; I13.0 Hypertensive heart and chronic kidney disease with heart failure and stage 1 through stage 4 chronic kidney disease, or unspecified chronic kidney disease; I50.9 Heart failure, unspecified; N18.9 Chronic kidney disease, unspecified; E11.22 Type 2 diabetes mellitus with diabetic chronic kidney disease; E11.40 Type 2 diabetes mellitus with diabetic neuropathy, unspecified; I25.2 Old myocardial infarction; I70.0 Atherosclerosis of aorta; K21.9 Gastro-esophageal reflux disease without esophagitis; H91.90 Unspecified hearing loss, unspecified ear; F41.9 Anxiety disorder, unspecified; M19.90 Unspecified osteoarthritis, unspecified site; Z79.899 Other long term (current) drug therapy; Z79.82 Long term (current) use of aspirin; Z95.1 Presence of aortocoronary bypass graft; Z85.51 Personal history of malignant neoplasm of bladder
CPT/HCPCS: 71045; 80053; 82550; 82948; 83735; 83880; 84484; 85025; 85610; 85730; 93005; 99285; G0378

== ENCOUNTER 2017-06-14 10:08 | Emergency (ER) | payer MEDICARE, BC ==
[~2017-06-14] VITALS: Ht 149.9 cm; Wt 80.0 kg
[~2017-06-14 10:08] MED LIST changes: +AMLO2.5T PO; -AMLO5TAB2 PO; -ARTIDRO EACH EYE; +ATOR20TA15 PO; -CARV6.252 PO; -DORZ2SOL RIGHT EYE; -FURO1TAB60 PO; +FURO20TA PO; -GLIM2TAB PO; -HYDR-3533 PO; -ISOS20TA PO; -NITR1SUB3 SL; -NOVO7030P2 SQ; -PANT40TA3 PO; -PLAV75TA29 PO; -PRED1SUS LEFT EYE
[2017-06-14 10:27] VITALS: BP 202/83; PULSE 65; RESP 19; TEMP 97.7; O2SAT 99
[2017-06-14 11:07] LABS: AUTOMATED NEUTROPHIL # 1.9 TH/MM3 (1.8-7.7); BASOPHIL % 0.7 % (0.0-2.0); EOSINOPHIL % 0.1 % (0.0-4.0); HEMOGLOBIN 11.1 GM/DL (11.6-15.3); LYMPH % 29.3 % (9.0-44.0); MEAN CELL VOLUME 88.8 FL (80.0-100.0); MEAN CORPUSCULAR HEMOGLOBIN 30.7 PG (27.0-34.0); MEAN CORPUSCULAR HGB CONC 34.6 % (32.0-36.0); MEAN PLATELET VOLUME 9.8 FL (7.0-11.0); MONO % 11.6 % (0.0-8.0); MONOCYTE # 0.4 TH/MM3 (0-0.9); NEUT % 58.3 % (16.0-70.0); PLATELET COUNT 173 TH/MM3 (150-450); RED CELL DISTRIBUTION WIDTH 13.4 % (11.6-17.2); WHITE BLOOD COUNT 3.3 TH/MM3 (4.0-11.0)
[2017-06-14 11:36] LABS: BICARBONATE 28.3 MEQ/L (21.0-32.0); BLOOD UREA NITROGEN 24 MG/DL (7-18); CALCIUM 8.7 MG/DL (8.5-10.1); CHLORIDE 110 MEQ/L (98-107); GLOMERULAR FILTRATION RATE 52 ML/MIN (>89); GLUCOSE,RANDOM 176 MG/DL (74-106); SODIUM (NA) 142 MEQ/L (136-145)
[2017-06-14 11:39] LABS: TROPONIN I LESS THAN 0.02 NG/ML (0.02-0.05)
--- NOTE | 2017-06-14 11:51 | RADRPT ---
EXAM DATE/TIME: 06/14/2017 11:20 [facility] COMPARISON: CHEST PA & LAT, August 01, 2016, 0:54. INDICATIONS : Chest pain. Patient states she fell 2 weeks ago and hit her head. She has had dizziness ever since. MEDICAL HISTORY : Hypercholesterolemia. Diabetes mellitus type II. Hypertension.Hiatal Hernia, Renal Failure. [place] SURGICAL HISTORY : CABG. Hysterectomy. ENCOUNTER: Initial ACUITY: 2 weeks PAIN SCORE: 0/10 LOCATION: Bilateral chest FINDINGS: PA and lateral views use of the chest show moderate cardiomegaly which is unchanged. No pulmonary vas cular engorgement. No effusions. Lungs are clear. Median sternotomy wires. A scoliotic and degenerati ve spine. CONCLUSION: Cardiomegaly. Clear lungs. Silvestre Sykes Jr., MD on June 14, 2017 at 11:48 Board Certified Radiologist. This report was verified electronically.
--- NOTE | 2017-06-15 21:52 | EKG ---
Date Performed: 06/14/2017 Time Performed: 10:48:52 PTAGE: 89 years EKG: Sinus rhythm WITH FIRST DEGREE AV BLOCK SEPTAL INFARCT AGE UNDETERMINED ABNORMAL ECG PREVIOUS TRACING : 05/27/2017 11.10 No significant change from previous tracing noted. DOCTOR: Milan Eugene Interpretating Date/Time 06/15/2017 21:51:39
== END 2017-06-14 11:40 | disposition left against medical advice (07) ==
LOC: NED 10:08
DX: Z53.21 Procedure and treatment not carried out due to patient leaving prior to being seen by health care provider (principal); I44.0 Atrioventricular block, first degree; R94.31 Abnormal electrocardiogram [ECG] [EKG]
CPT/HCPCS: 71046; 80048; 82550; 84484; 85025; 93005; 99281